=== PATIENT | male | born 1960 | race African-American/Black ===

== ENCOUNTER 2016-05-23 12:13 | Observation (INO) | payer MEDICARE ==
--- NOTE | ~2016-05-23 | HP ---
History And Physical [id number] [place]. [address] NAME: MAKSIM LOZANO : 60 STATUS : ADM Vinicio PAT#: [id number] AGE: 55 ADM/REG DATE : 05/23/16 MR#: [id number] REPORT SERV DATE: 05/23/16 DICTATED BY: ATSHI TILLEY DATE: 05/23/16 REPORT STATUS : Draft TRANSCRIBED BY: MODL DATE: 05/23/16 DATE OF ADMISSION: 05/23/2016 CHIEF COMPLAINT: Left upper extremity numbness. HISTORY OF PRESENT ILLNESS: The patient is a 55-year-old male with multiple comorbidities, presented with complaints that last night, he felt like that his left arm was numb, he felt like that there was a twitching in it and his arm kept twitching, but he fell asleep. His numbness lasted about 30 minutes. He denied any slurred speech, double vision, or blurred vision. He denied any numbness or tingling in the left lower extremity. He had not had any palpitations, chest pain, shortness of breath, or other constitutional symptoms. This morning he still had twitching in his arm, so he decided to come to the hospital. In the emergency room, evaluation was negative, but he was thought that maybe he was having TIA, given his history of atrial fibrillation and cardiomyopathy with prior CVA. So, he has been referred to the Hospitalist Service for further treatment and evaluation. REVIEW OF SYSTEMS: Otherwise, negative. PAST MEDICAL HISTORY: As obtained from past records. This patient had nonischemic dilated cardiomyopathy with a history of coronary artery disease, ejection fraction is 35% with pulmonary hypertension. He had stroke in 2013 with right parietotemporal encephalomalacia. He has chronic kidney disease stage 3 with a baseline creatinine of 1.3 to 1.4, atrial fibrillation followed by Dr. Sams. Taken off anticoagulation because of bleeding. He has hypertension. He had peptic ulcer disease, seen by Dr. Perrin. GI bleed, off anticoagulation. He had hypothyroidism. He has anemia with iron deficiency, seen by Dr. Ledesma. Gastric outlet obstruction with gastroparesis. He has chronic venous stasis and lymphedema with left orbital fracture. Genital herpes. He had nonsustained ventricular tachycardia and supraventricular tachycardia, pancreatitis, and pancytopenia. PAST SURGICAL HISTORY: Significant for major bowel surgery, possibly a Billroth II with a vagotomy, but there is also a concern whether he had a Yony-en-Y and a jejunostomy. He also had a partial small-bowel resection because of gangrenous bowel in 2003. He had an extensive adhesiolysis and then had a ventral hernia, abdominal wall dehiscence with extended wound care. Varicose vein stripping by Dr. Ferrara. ALLERGIES: TO SHAUNA INHIBITORS. HOME MEDICATIONS: Allopurinol 100 mg twice daily, aspirin 81 mg once daily, Bumex 2 mg twice daily, Coreg 6.25 mg twice daily, digoxin 0.25 mg once daily, isosorbide 10 mg p.o. twice daily, levothyroxine 25 mcg once daily, Aldactone 25 mg once daily. SOCIAL HISTORY: He denies smoking. Drinks a beer on a daily basis, often 24 ounces every several days. He does not drink vodka anymore. He previously used cocaine, but has been absent for years. He is on disability. He is . 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 He has no children. He lives with brother. History And Physical [address] [address] NAME: MAKSIM LOZANO : 60 STATUS : ADM Vinicio PAT#: [id number] AGE: 55 ADM/REG DATE : 05/23/16 MR#: [id number] REPORT SERV DATE: 05/23/16 DICTATED BY: TASHI TILLEY DATE: 05/23/16 REPORT STATUS : Draft TRANSCRIBED BY: ATA DATE: 05/23/16 FAMILY HISTORY: Significant for diabetes, heart disease, and mother with lymphedema. PHYSICAL EXAMINATION: GENERAL: male, lying in bed, appears to be in no obvious respiratory distress. He is awake and alert, he is oriented. VITAL SIGNS: Blood pressure is 130/51, saturation of 98% on room air. Temp is 98.4. Pulse is 51. HEENT: Head is normocephalic, atraumatic. Pupils are equal, round, and reactive to light. Extraocular muscles are intact. Sclerae are anicteric. Conjunctivae normal. Oropharynx without lesion. Tongue protrusion midline. Uvula midline. NECK: Supple. No jugular venous distention. No carotid bruits or thyromegaly is appreciated. No lymphadenopathy in the neck is palpable. HEART: Regular rate rhythm. No murmurs, rubs, or gallops are heard. PMI displaced just outside the anterior axillary line. LUNGS: Clear to auscultation both anteriorly and posteriorly without rales, rhonchi, wheezing, or consolidation. ABDOMEN: Scaphoid soft, nontender. Good bowel sounds. Multiple surgical scars are noted. EXTREMITIES: Without cyanosis or clubbing. There is a difficult thickness of the skin and chronic venous stasis with some blistering of the lower extremities skin. 1+ pitting edema is noted. NEUROLOGIC: Cranial nerves number II through XII grossly intact. Motor development functioning appears to be normal. Strength is equal and symmetrical in both upper and lower extremities. There is some contracture or spasm of the room left upper extremity hand. There is no pronator drift of both upper extremities. The patient is somewhat difficult to follow commands and unable to provide any insight into proprioception during this exam. He is able to move both lower extremities. Sensory exam seems to be grossly intact as well. LABORATORY DATA: CT of the brain in the emergency room was negative for any acute event. Encephalomalacia from previous stroke noted. CMP, sodium of 138, potassium 3.0, chloride 98, bicarb 30, BUN 8, creatinine 1.05, glucose of 95. Liver function studies, alkaline phosphatase is elevated at 196, ALT is 38, AST is 61. Troponin is 0.07 which have been somewhat elevated in the past as well. Total bilirubin is 2.8. Albumin is 3.0. White count is 3.9, hemoglobin of 11.5, a hematocrit of 33, platelet count is 117,000. No bandemia. PT, INR, and PTT were normal. IMPRESSION: 1. Left upper extremity esthesia. Most likely due to fluctuation of positively charged ions including ionized calcium and potassium. Must rule out transient ischemic attack or structural brain disease. 2. Nonischemic cardiomyopathy. 3. Alcoholism. 4. Hypertension. 5. Hyperbilirubinemia. 6. Pancytopenia. Most likely due to alcoholic liver disease. PLAN: The patient will be admitted. MRI and MRA of the brain will be obtained. Two- History And Physical [address] [place] [facility]. [address] NAME: MAKSIM LOZANO : 60 STATUS : ADM Vinicio PAT#: [id number] AGE: 55 ADM/REG DATE : 05/23/16 MR#: [id number] REPORT SERV DATE: 05/23/16 DICTATED BY: TASHI TILLEY DATE: 05/23/16 REPORT STATUS : Draft TRANSCRIBED BY: ATA DATE: 05/23/16 dimensional echocardiogram will be done. MRA of the neck will be done. We will add aspirin 325 mg once daily. We will add high-dose statin. Continue home medications. Check digoxin level. IV fluids will be administered. Check ionized calcium level. The patient remains a full code. KARINA/ATA Tashi Tilley M.D. / [id number] CC: Tashi Tilley M.D.
--- NOTE | ~2016-05-23 | DS ---
Discharge Summary [facility] [address] [facility] [place]. [address] NAME: MAKSIM LOZANO : 60 STATUS : DIS Vinicio PAT#: [id number] AGE: 55 ADM/REG DATE : 05/23/16 MR#: [id number] REPORT SERV DATE: 05/25/16 DICTATED BY: TASHI TILLEY DATE: 05/24/16 REPORT STATUS : Draft TRANSCRIBED BY: MODL DATE: 05/24/16 ADMISSION DATE: 05/23/2016 DISCHARGE DATE: 05/24/2016 DISCHARGE DIAGNOSES: 1. Left upper extremity anesthesia, currently resolved. 2. Nonischemic cardiomyopathy. 3. Hypothyroidism. 4. Alcoholism. 5. Late effect of cerebrovascular accident. CONSULTANTS DURING THIS HOSPITALIZATION: None. INVASIVE PROCEDURES DONE DURING THIS HOSPITALIZATION: None. IMAGING DONE THIS HOSPITALIZATION: MRI and MRA of the brain showing encephalomalacia of the temporoparietal lobe and two old CVAs of the cerebellum. But no evidence of any acute CVA. Normal MRA of the brain. Fairly normal MRA of the neck. Two-dimensional echocardiogram not done because the patient had one just recently done in April with an ejection fraction of about 30%. BRIEF HISTORY OF PRESENT ILLNESS: The patient is a 55-year-old male with past medical history of old CVA, presented with left upper extremity numbness, so he was admitted. For detailed history and physical exam, please see my note dictated on 05/23/2016. HOSPITAL COURSE: After being admitted to the hospital, this patient was observed. He underwent serial neuro checks. Physical Therapy saw the patient in consultation and it seemed like that he was at baseline. MRI and MRA of the brain were done which were noted as above. This patient otherwise remained stable. He did have some looseness in his stool and C. diff was checked that was negative. He, otherwise remained stable and is being discharged in stable condition. DISCHARGE DISPOSITION: Home. DISCHARGE ACTIVITY: As tolerated, but he will need physical therapy and occupational therapy in the home setting because of his late effect of CVA. This will be arranged through Case Management. DISCHARGE DIET: Low sodium diet. DISCHARGE MEDICATIONS: Allopurinol 100 mg twice daily, aspirin 81 mg once daily, Bumex 2 mg twice daily, Coreg 6.25 mg twice daily, digoxin 0.25 mg once daily, Isordil 10 mg p.o. twice daily, levothyroxine 25 mcg once daily, Aldactone 25 mg once daily. DISCHARGE FOLLOWUP: With [facility] in one week. Discharge Summary [place] [address] [facility] [place] [facility] [address] NAME: MAKSIM LOZANO : 60 STATUS : DIS Vinicio PAT#: [id number] AGE: 55 ADM/REG DATE : 05/23/16 MR#: [id number] REPORT SERV DATE: 05/25/16 DICTATED BY: TASHI TILLEY DATE: 05/24/16 REPORT STATUS : Draft TRANSCRIBED BY: ATA DATE: 05/24/16 About 30 minutes spent planning this patient's discharge, reconciling medications, and discussing hospital care and findings with the patient. KARINA/ATA Tashi Tilley M.D. / [id number] CC: Tashi Tilley M.D. [facility]
[2016-05-23 10:24] LABS: BASOPHILS 0 %; EOSINOPHILS 0 %; HEMOGLOBIN 11.5 g/dL (13.6-17.8); IMMATURE GRANULOCYTES 0.3 %; IMMATURE GRANULOCYTES ABSOLUTE 0.01 10/3/uL (0.0-0.11); LYMPHOCYTES 13.2 %; LYMPHOCYTES ABSOLUTE 0.51 10/3/uL (0.67-4.30); MEAN CORPUS HGB CONC 34.8 g/dL (32.0-36.0); MEAN CORPUSCULAR HEMOGLOB 32.6 pg (26.0-34.0); MEAN CORPUSCULAR VOLUME 93.5 fL (80-100); MONOCYTES 10.9 %; MONOCYTES ABSOLUTE 0.42 10/3/uL (0.21-1.20); NEUTROPHILS 75.6 %; NEUTROPHILS ABSOLUTE 2.91 10/3/uL (2.02-8.40); PLATELET COUNT 117 10/3/uL (150-400); RBC DISTRIBUTION WIDTH 15.8 % (12.0-16.0); RED CELL COUNT 3.53 10/6/uL (4.7-6.1)
[2016-05-23 10:25] LABS: ER CBC TAT 0 Hrs 08 Mins; MANUAL DIFF NO %; WHITE BLOOD CELLS 3.9 10/3/uL (4.5-10.5)
[2016-05-23 10:32] LABS: INTERNATIONAL NORMAL RATI 1.1 UNITS (-); PARTIAL THROMBO TIME 27.7 SEC (22.5-37.2); PROTIME (NOT ORD) 13.7 SEC (12.0-14.5)
[2016-05-23 10:39] LABS: A/G RATIO 0.7 (0.7-1.9); ALKALINE PHOSPHATASE 196 U/L (45-117); CALCIUM, SERUM 8.3 MG/DL (8.5-10.4); CHLORIDE, SERUM 98 MMOL/L (96-112); CO2 (CARBON DIOXIDE) 30 MMOL/L (24-34); CREATININE 1.05 MG/DL (0.70-1.30); GFR AFRICAN AMERICAN 92 ML/MIN (>=60); GFR NON AFRICAN AMERICAN 80 ML/MIN (>=60); GLOBULIN 4.3 G/DL (2.5-4.1); GLUCOSE, SERUM 95 MG/DL (60-99); SGOT(AST) 61 U/L (5-40); SGPT(ALT) 38 U/L (5-65); SODIUM, SERUM 138 MMOL/L (135-148); TOTAL PROTEIN 7.3 G/DL (6.0-8.5)
[2016-05-23 10:41] LABS: BUN (BLOOD UREA NITROGEN) 8 MG/DL (6-23); TOTAL BILIRUBIN 2.8 MG/DL (0-1.2)
[2016-05-23 10:43] LABS: TROPONIN I 0.07 NG/ML (<0.05)
[~2016-05-23 12:13] MED LIST: AFRIN15 NAS; AMIT50 PO; AMOXIL500 MG PO; APRES25 PO; ASAB PO; ATV1 IV; AUG875 PO; BUM1; BUM1 PO; BUM2 PO; Bumex; CARD120 IV; CARDCD180 PO; CARDCD240 PO; CARVEDILOL PO; COREG12 PO; COREG25 PO; COREG6 PO; COZ25 PO; DIGITEK0.25 MG PO; DIL2AMP IV; DIOVAN40 MG PO; DSS PO; DURA75 TOP; FLONASE NAS; H5P IM; HALF81 PO; HYDROCHLOROT12.5 MG PO; HYDROCHLOROT25 MG PO; IBU800 PO; IMOD PO; ISORDIL10 PO; K-TABS10 MEQ PO; KAOPECTATE262 MG/15 PO; KDUR20 PO; KLOR-CON 1010 MEQ PO; KLOR-CON M2020 MEQ PO; KLOR-CON20 MEQ PO; L10 PO; L20 PO; L40 PO; LASIX PO; LEVAQUIN750 MG PO; LEVOTHYROXIN25 MCG PO; LIPITOR40 PO; LIPITOR80 MG PO; LOP50 PO; LOPRESS HC100 MG/25 IV; LOPRESS HC100 MG/25 PO; MAGOX4 PO; MIRALAXPKT PO; MONODOX100 MG PO; MULTIPLE VIT PO; NORCO1 TA2 PO; NORCO1 TAB PO; PACERONE200 MG IV; PCET PO; PEP20 IV; PHENERGAN (G25 MG/ML IM; POTASSIUM PO; PRILO PO; PRILOSEC OTC20 MG PO; REG10MGP IV; SPIRO25 PO; SYN.025B PO; THERAPEUTIC PO; TRAMADOL PO; ULTRAM50 PO; VICODINTAB PO; XARELTO20 MG PO; Z100 PO; ZESTORETIC1 TAB PO
[2016-05-23] MEDS ORDERED: COREG6 PO (14:04)
[2016-05-23 17:04] LABS: FREE T4 1.23 NG/DL (0.76-1.46); TROPONIN I 0.05 NG/ML (<0.05)
[2016-05-23 17:05] LABS: ULTRASENSITIVE TSH 1.94 MCIU/ML (0.358-3.740)
[2016-05-23 17:49] LABS: DIGOXIN 0.4 NG/ML (0.8-2.0)
[2016-05-24 01:12] LABS: BASOPHILS 0.7 %; BASOPHILS ABSOLUTE 0.02 10/3/uL (0.0-0.16); EOSINOPHILS ABSOLUTE 0.03 10/3/uL (0.0-0.53); HEMOGLOBIN 10.3 g/dL (13.6-17.8); IMMATURE GRANULOCYTES 0.3 %; IMMATURE GRANULOCYTES ABSOLUTE 0.01 10/3/uL (0.0-0.11); LYMPHOCYTES 23.3 %; LYMPHOCYTES ABSOLUTE 0.67 10/3/uL (0.67-4.30); MEAN CORPUS HGB CONC 34.9 g/dL (32.0-36.0); MEAN CORPUSCULAR HEMOGLOB 32.5 pg (26.0-34.0); MEAN CORPUSCULAR VOLUME 93.1 fL (80-100); MEAN PLATELET VOLUME 9.7 fL (9.2-13.0); MONOCYTES 13.2 %; MONOCYTES ABSOLUTE 0.38 10/3/uL (0.21-1.20); NEUTROPHILS 61.5 %; NEUTROPHILS ABSOLUTE 1.76 10/3/uL (2.02-8.40); PLATELET COUNT 108 10/3/uL (150-400); RBC DISTRIBUTION WIDTH 15.6 % (12.0-16.0); RED CELL COUNT 3.17 10/6/uL (4.7-6.1); WHITE BLOOD CELLS 2.9 10/3/uL (4.5-10.5)
[2016-05-24 01:13] LABS: HEMATOCRIT 29.5 % (40.0-51.0); MANUAL DIFF NO %
[2016-05-24 01:25] LABS: ALBUMIN 2.5 G/DL (3.5-5.0); BUN (BLOOD UREA NITROGEN) 8 MG/DL (6-23); CALCIUM, SERUM 7.9 MG/DL (8.5-10.4); CHLORIDE, SERUM 103 MMOL/L (96-112); CREATININE 0.96 MG/DL (0.70-1.30); GFR AFRICAN AMERICAN 103 ML/MIN (>=60); GFR NON AFRICAN AMERICAN 89 ML/MIN (>=60); GLUCOSE, SERUM 85 MG/DL (60-99); PHOSPHORUS, SERUM 2.5 MG/DL (2.5-4.5); SODIUM, SERUM 140 MMOL/L (135-148)
[2016-05-24 01:31] LABS: CO2 (CARBON DIOXIDE) 25 MMOL/L (24-34)
[2016-05-24 01:32] LABS: TROPONIN I 0.06 NG/ML (<0.05)
[2016-05-24 09:37] LABS: BUN (BLOOD UREA NITROGEN) 7 MG/DL (6-23); CALCIUM, SERUM 8.3 MG/DL (8.5-10.4); CHLORIDE, SERUM 102 MMOL/L (96-112); CO2 (CARBON DIOXIDE) 26 MMOL/L (24-34); CREATININE 1.02 MG/DL (0.70-1.30); GFR AFRICAN AMERICAN 95 ML/MIN (>=60); GFR NON AFRICAN AMERICAN 82 ML/MIN (>=60); GLUCOSE, SERUM 89 MG/DL (60-99); POTASSIUM, SERUM 3.4 MMOL/L (3.5-5.3); SODIUM, SERUM 141 MMOL/L (135-148); TROPONIN I 0.04 NG/ML (<0.05)
[2016-05-24 13:00] LABS: ALBUMIN 2.7 G/DL (3.5-5.0); SGOT(AST) 43 U/L (5-40); SGPT(ALT) 32 U/L (5-65); TOTAL BILIRUBIN 2.7 MG/DL (0-1.2)
[2016-05-24 13:03] LABS: ALKALINE PHOSPHATASE 158 U/L (45-117); DIRECT BILIRUBIN 1.6 MG/DL (0.0-0.4); INDIRECT BILIRUBIN(NOT ORDER) 1.1 MG/DL (0.1-0.9)
[2016-05-24 13:16] LABS: TOTAL PROTEIN 6.7 G/DL (6.0-8.5)
[2016-07-21] MEDS ORDERED: COREG6 PO (22:21)
[2016-07-21] MEDS ORDERED: SYN.025B PO (22:21)
[2016-07-21] MEDS ORDERED: BUM2 PO (22:21)
[2016-07-21] MEDS ORDERED: Z100 PO (22:21)
[2016-07-21] MEDS ORDERED: ASAB PO (22:22)
[2016-07-21] MEDS ORDERED: SPIRO25 PO (22:22)
[2016-10-27] MEDS ORDERED: HALF81 PO (15:44)
[2016-10-27] MEDS ORDERED: Z100 PO (15:45)
[2016-10-27] MEDS ORDERED: BUM1 PO (15:45)
[2016-10-27] MEDS ORDERED: SYN.025B PO (15:45)
[2016-10-27] MEDS ORDERED: NORCO1 TAB PO (15:46)
[2016-11-04] MEDS ORDERED: CORDARONE PO (13:09)
[2016-11-04] MEDS ORDERED: COREG3 PO (13:10)
[2016-11-04] MEDS ORDERED: IMDUR30 PO (13:11)
[2016-11-04] MEDS ORDERED: ENULOSE PO (13:13)
[2016-11-04] MEDS ORDERED: KLOR-CON20 MEQ PO (13:14)
[2016-11-04] MEDS ORDERED: SPIRO25 PO (13:15)
[2016-11-04] MEDS ORDERED: APRES10B PO (13:15)
[2016-11-18] MEDS ORDERED: BUM1 PO (13:14)
[2016-11-18] MEDS ORDERED: Z100 PO (13:14)
[2016-11-18] MEDS ORDERED: COREG3 PO (13:15)
[2016-11-18] MEDS ORDERED: LEVOTHYROXIN25 MCG PO (13:15)
[2016-11-18] MEDS ORDERED: CORDARONE PO (13:15)
[2016-11-18] MEDS ORDERED: KLOR-CON M2020 MEQ PO (13:16)
[2016-11-18] MEDS ORDERED: SPIRO25 PO (13:16)
[2016-11-18] MEDS ORDERED: IMDUR30 PO (13:16)
[2016-11-18] MEDS ORDERED: APRES10B PO (13:16)
[2016-11-18] MEDS ORDERED: HALF81 PO (13:17)
[2016-11-18] MEDS ORDERED: LIPITOR10 PO (13:18)
[2016-11-22] MEDS ORDERED: LEVOTHYROXIN50 MCG PO (13:16)
[2016-11-22] MEDS ORDERED: VIBRATAB100 MG PO (13:20)
[2016-12-29] MEDS ORDERED: IMDUR30 PO (10:59)
[2017-01-02] MEDS ORDERED: BUM2 PO (10:21)
[2017-01-02] MEDS ORDERED: COREG6 PO (10:22)
[2017-01-02] MEDS ORDERED: FOLIC PO (10:24)
[2017-01-02] MEDS ORDERED: B1100 PO (10:25)
== END 2016-05-24 15:59 | disposition home or self-care (01) ==
LOC: ER 12:13 → 1SO 13:55
PROVIDERS: Internal Medicine; Nurse Practitioner
DX: R20.0 Anesthesia of skin (principal); E80.6 Other disorders of bilirubin metabolism; D61.818 Other pancytopenia; I42.9 Cardiomyopathy, unspecified; E03.9 Hypothyroidism, unspecified; N18.3 Chronic kidney disease, stage 3 (moderate); I27.2 Other secondary pulmonary hypertension; I25.10 Atherosclerotic heart disease of native coronary artery without angina pectoris; I11.0 Hypertensive heart disease with heart failure; F10.20 Alcohol dependence, uncomplicated; Z79.82 Long term (current) use of aspirin; Z79.01 Long term (current) use of anticoagulants; Z79.899 Other long term (current) drug therapy; Z86.73 Personal history of transient ischemic attack (TIA), and cerebral infarction without residual deficits; D50.9 Iron deficiency anemia, unspecified
CPT/HCPCS: 70450; 70544; 70547; 70551-52; 71010; 80048; 80053; 80069; 80076; 80162; 82330; 82607; 82746; 84439; 84443; 84484; 85025; 85610; 85730; 87493; 87493-59; 93005; 96372; 97161-GP; 99291; A9270-GY; G0378; G8978-CK-GP; G8979-CJ-GP

== ENCOUNTER 2016-06-23 13:29 | Observation (INO) | payer MEDICARE ==
--- NOTE | ~2016-06-23 | DS ---
Discharge Summary [address] [place]. [address] NAME: MAKSIM LOZANO : 60 STATUS : DIS Vinicio PAT#: [id number] AGE: 55 ADM/REG DATE : 06/23/16 MR#: [id number] REPORT SERV DATE: 06/25/16 DICTATED BY: RADHA BENJAMIN DATE: 06/24/16 REPORT STATUS : Draft TRANSCRIBED BY: MODL DATE: 06/24/16 ADMISSION DATE: 06/23/2016 DISCHARGE DATE: 06/24/2016 DISCHARGE DIAGNOSES: 1. Bleeding varicose vein. It was stopped. The sutures done in emergency room, seen by Dr. Bustamante. There was no other treatment can be given. 2. Pancytopenia, stable. 3. Chronic systolic heart failure. 4. Chronic atrial fibrillation. HISTORY OF PRESENT ILLNESS: This is a 55-year-old -[place] male patient, who does have recurrent varicocele vein bleeding problems, came to the hospital with bleeding after he hit with a little minor trauma to his vein. Please see dictated H and P. HOSPITAL COURSE: He was admitted to the hospital with bleeding varicose vein. Seen by Dr. Lord. He was already treated with a little suture from the emergency room and his bleeding stopped. Dr. Bustamante does not think there is nothing to add on this case. His H and H have been slightly lower than before, but it is remaining 7.8 and 23, and he is not symptomatic from this anemia. So, the patient was not transfused. Overall, other medical conditions have been stable. So, the patient will be discharged to home. DISCHARGE MEDICATION: Same as home medication. EKL/MODL Radha Benjamin M.D. / [id number] CC: Daja Mendosa NWolfPWolf
--- NOTE | ~2016-06-23 | HP ---
History And Physical [address] [place]. [address] NAME: MAKSIM LOZANO : 60 STATUS : ADM Vinicio PAT#: [id number] AGE: 55 ADM/REG DATE : 06/23/16 MR#: [id number] REPORT SERV DATE: 06/23/16 DICTATED BY: AYLEEN HINSON DATE: 06/23/16 REPORT STATUS : Draft TRANSCRIBED BY: MODL DATE: 06/23/16 DATE OF ADMISSION: 06/23/2016 CHIEF COMPLAINT: Bleeding varicose veins. HISTORY OF PRESENT ILLNESS: The patient is a 55-year-old male with complex past medical history including pancytopenia, recurrent bleeding varicose veins, lymphedema, peptic ulcer disease, CKD, CHF with EF of 35%, pulmonary hypertension, nonischemic dilated cardiomyopathy, AFib , off anticoagulation secondary to bleeding history, who presents with episode of feeling as high as his varicose vein had bled. On arrival to emergency room, the patient was noted to have significantly bleeding varicose veins, was notably anemic and had difficulty stopping this bleeding. Had noticed some bleeding happening suddenly over the last few hours, been constant, moderate to severe in severity. No pain or radiating symptoms. No headache, nausea, vomiting. No fever or chills were noted. The patient said there was no trauma involved to leg, symptoms happened spontaneously. The patient was stitched in emergency room and finally had mild stopping of bleeding. There are no worsening or relieving symptoms. The patient does follow Dr. Ferrara as he has had multiple episodes of this. REVIEW OF SYSTEMS: A 10-point review of systems is negative except for that noted in the HPI. PAST MEDICAL HISTORY: Noted for nonischemic cardiomyopathy, EF of 35% with pulmonary hypertension, stroke 2013 with parietotemporal encephalomalacia, CKD stage 3, AFib, off anticoagulation, bleeding history, peptic ulcer disease followed by Dr. Perrin, GI bleed, hypothyroidism, anemia with iron deficiency follow up with Dr. Ledesma with pancytopenia, gastric outlet obstruction, may be gastroparesis, chronic venous stasis, lymphedema, genital herpes, nonsustained V-tach and supraventricular tachycardia, pancreatitis. SURGICAL HISTORY: Significant for major bowel surgery, possibly Billroth II with vagotomy, unclear if he has had Yony-en-Y and jejunostomy, partial small-bowel resection secondary to gangrenous bowel in 2003, extensive adhesiolysis, ventral hernia, abdominal wall dehiscence with extended wound care. Varicose vein stripping with Dr. Ferrara. ALLERGIES: SHAUNA INHIBITORS. SOCIAL HISTORY: No smoking. Daily beer intake, but stop vodka and illicits including was previously using cocaine. Disabled. . Reports that he typically sits at home watching TV now. FAMILY HISTORY: Diabetes, heart disease, lymphedema. HOME MEDICATIONS: Allopurinol, aspirin, Bumex, Coreg, digoxin, Isordil, Synthroid, and spironolactone. PHYSICAL EXAMINATION: History And Physical [address] [address] NAME: MAKSIM LOZANO : 60 STATUS : ADM Vinicio PAT#: [id number] AGE: 55 ADM/REG DATE : 06/23/16 MR#: [id number] REPORT SERV DATE: 06/23/16 DICTATED BY: AYLEEN HINSON DATE: 06/23/16 REPORT STATUS : Draft TRANSCRIBED BY: ATA DATE: 06/23/16 VITAL SIGNS: The patient's blood pressure 112/80, temperature 97.5, pulse 72, respirations 20. GENERAL: Elderly frail. HEENT: Eyes with scleral icterus. EOMI. Mouth poor dentition. Nares patent. RESPIRATORY: Clear to auscultation. No wheezes, rales. CV: Regular rate. Bilateral edema. GI: Soft, nontender, nondistended. Multiple surgical sites. : Deferred. MUSCULOSKELETAL: Moves extremities. Right leg bandaged secondary to recent stitch from bleeding varicosity. SKIN: Warm, dry with lymphedema changes on lower extremities. HEME: Bleeding was noted previously on varicosity site. NEURO: Alert and oriented. No asterixis. PSYCH: Pleasant, resting. LABORATORY DATA: Sodium 142, potassium 3.4, chloride 107, bicarb 24 and 18, creatinine 1.2, glucose 92, calcium 1.1. CBC: WBC 2.7 with H and H 8.1 and 23.2, platelets 113. INR 1.1. ASSESSMENT: 1. Acute blood loss anemia. 2. Hypokalemia. 3. Hypocalcemia. 4. Pancytopenia. 5. Hypothyroidism. 6. Bleeding varicose veins. 7. Congestive heart failure history. PLAN: 1. For acute blood loss anemia secondary to bleeding varicose veins, transfuse PRBCs as the patient did have quite a significant blood loss anemia at site in emergency room, which has been stopped with stitching. We will have Dr. Ferrara evaluate arterial ultrasound and every shift monitoring Dopplering pulses to monitor for no signs or symptoms of compartment syndrome at this time. 2. Hypokalemia, replace. 3. Hypocalcemia, check ionized calcium. 4. Pancytopenia, monitor. The patient was seen by Dr. Ledesma likely secondary to chronic illnesses multitude. 5. Hypothyroidism, on replacement. 6. CHF history, monitor I's and O's. Gentle IV fluids currently in acute setting of blood loss anemia. 7. Varicose veins, eval per Vascular Surgery. All questions answered with the patient. Disposition possibly within 24 to 48 hours. Pending surgical evaluation and stabilization of H and H. History And Physical [address] [address] NAME: MAKSIM LOZANO : 60 STATUS : ADM Vinicio PAT#: [id number] AGE: 55 ADM/REG DATE : 06/23/16 MR#: [id number] REPORT SERV DATE: 06/23/16 DICTATED BY: AYLEEN HINSON DATE: 06/23/16 REPORT STATUS : Draft TRANSCRIBED BY: ATA DATE: 06/23/16 DDN/ATA Ayleen Hinson MD / [id number] CC: Ayleen Hinson MD
[2016-06-23 12:31] LABS: BASOPHILS 0.4 %; BASOPHILS ABSOLUTE 0.01 10/3/uL (0.0-0.16); EOSINOPHILS ABSOLUTE 0.08 10/3/uL (0.0-0.53); ER CBC TAT 0 Hrs 07 Mins; LYMPHOCYTES 28.4 %; LYMPHOCYTES ABSOLUTE 0.76 10/3/uL (0.67-4.30); MEAN CORPUS HGB CONC 34.9 g/dL (32.0-36.0); MEAN CORPUSCULAR VOLUME 91.7 fL (80-100); MEAN PLATELET VOLUME 8.8 fL (9.2-13.0); MONOCYTES 16.4 %; MONOCYTES ABSOLUTE 0.44 10/3/uL (0.21-1.20); NEUTROPHILS 51.8 %; NEUTROPHILS ABSOLUTE 1.39 10/3/uL (2.02-8.40); PLATELET COUNT 113 10/3/uL (150-400); RBC DISTRIBUTION WIDTH 16.5 % (12.0-16.0); WHITE BLOOD CELLS 2.7 10/3/uL (4.5-10.5)
[2016-06-23 12:32] LABS: HEMATOCRIT 23.2 % (40.0-51.0); HEMOGLOBIN 8.1 g/dL (13.6-17.8); MANUAL DIFF NO %; RED CELL COUNT 2.53 10/6/uL (4.7-6.1)
[2016-06-23 12:42] LABS: BUN (BLOOD UREA NITROGEN) 18 MG/DL (6-23); CALCIUM, SERUM 7.7 MG/DL (8.5-10.4); CHLORIDE, SERUM 107 MMOL/L (96-112); CO2 (CARBON DIOXIDE) 24 MMOL/L (24-34); GFR AFRICAN AMERICAN 78 ML/MIN (>=60); GFR NON AFRICAN AMERICAN 68 ML/MIN (>=60); GLUCOSE, SERUM 92 MG/DL (60-99); POTASSIUM, SERUM 3.4 MMOL/L (3.5-5.3); SODIUM, SERUM 142 MMOL/L (135-148)
[2016-06-23 12:45] LABS: INTERNATIONAL NORMAL RATI 1.1 UNITS (-); PARTIAL THROMBO TIME 30.8 SEC (22.5-37.2); PROTIME (NOT ORD) 14.1 SEC (12.0-14.5)
[2016-06-23 22:57] LABS: HEMOGLOBIN 7.8 g/dL (13.6-17.8)
[2016-06-24 10:22] LABS: BASOPHILS 0.3 %; BASOPHILS ABSOLUTE 0.01 10/3/uL (0.0-0.16); EOSINOPHILS ABSOLUTE 0.04 10/3/uL (0.0-0.53); HEMATOCRIT 22.3 % (40.0-51.0); HEMOGLOBIN 7.7 g/dL (13.6-17.8); IMMATURE GRANULOCYTES 0.5 %; IMMATURE GRANULOCYTES ABSOLUTE 0.02 10/3/uL (0.0-0.11); LYMPHOCYTES 13.8 %; LYMPHOCYTES ABSOLUTE 0.55 10/3/uL (0.67-4.30); MEAN CORPUS HGB CONC 34.5 g/dL (32.0-36.0); MEAN CORPUSCULAR HEMOGLOB 32.1 pg (26.0-34.0); MEAN CORPUSCULAR VOLUME 92.9 fL (80-100); MEAN PLATELET VOLUME 10.1 fL (9.2-13.0); MONOCYTES 11.8 %; MONOCYTES ABSOLUTE 0.47 10/3/uL (0.21-1.20); NEUTROPHILS 72.6 %; NEUTROPHILS ABSOLUTE 2.91 10/3/uL (2.02-8.40); PLATELET COUNT 114 10/3/uL (150-400); RBC DISTRIBUTION WIDTH 16.6 % (12.0-16.0)
[2016-06-24 10:23] LABS: MANUAL DIFF NO %
[2016-06-24 10:43] LABS: ALBUMIN 2.4 G/DL (3.5-5.0); ALKALINE PHOSPHATASE 164 U/L (45-117); BUN (BLOOD UREA NITROGEN) 18 MG/DL (6-23); CHLORIDE, SERUM 110 MMOL/L (96-112); CO2 (CARBON DIOXIDE) 23 MMOL/L (24-34); CREATININE 0.86 MG/DL (0.70-1.30); GFR AFRICAN AMERICAN 113 ML/MIN (>=60); GFR NON AFRICAN AMERICAN 98 ML/MIN (>=60); GLUCOSE, SERUM 100 MG/DL (60-99); SGOT(AST) 52 U/L (5-40); SGPT(ALT) 44 U/L (5-65); SODIUM, SERUM 142 MMOL/L (135-148); TOTAL PROTEIN 5.8 G/DL (6.0-8.5)
[2016-06-24 10:44] LABS: A/G RATIO 0.7 (0.7-1.9); GLOBULIN 3.4 G/DL (2.5-4.1); POTASSIUM, SERUM 4.5 MMOL/L (3.5-5.3); TOTAL BILIRUBIN 1.7 MG/DL (0-1.2)
[2016-07-21] MEDS ORDERED: Z100 PO (22:21)
[2016-07-21] MEDS ORDERED: SYN.025B PO (22:21)
[2016-07-21] MEDS ORDERED: COREG6 PO (22:21)
[2016-07-21] MEDS ORDERED: BUM2 PO (22:21)
[2016-07-21] MEDS ORDERED: ASAB PO (22:22)
[2016-07-21] MEDS ORDERED: SPIRO25 PO (22:22)
[2016-10-27] MEDS ORDERED: HALF81 PO (15:44)
[2016-10-27] MEDS ORDERED: SYN.025B PO (15:45)
[2016-10-27] MEDS ORDERED: BUM1 PO (15:45)
[2016-10-27] MEDS ORDERED: Z100 PO (15:45)
[2016-10-27] MEDS ORDERED: NORCO1 TAB PO (15:46)
[2016-11-04] MEDS ORDERED: CORDARONE PO (13:09)
[2016-11-04] MEDS ORDERED: COREG3 PO (13:10)
[2016-11-04] MEDS ORDERED: IMDUR30 PO (13:11)
[2016-11-04] MEDS ORDERED: ENULOSE PO (13:13)
[2016-11-04] MEDS ORDERED: KLOR-CON20 MEQ PO (13:14)
[2016-11-04] MEDS ORDERED: APRES10B PO (13:15)
[2016-11-04] MEDS ORDERED: SPIRO25 PO (13:15)
[2016-11-18] MEDS ORDERED: Z100 PO (13:14)
[2016-11-18] MEDS ORDERED: BUM1 PO (13:14)
[2016-11-18] MEDS ORDERED: CORDARONE PO (13:15)
[2016-11-18] MEDS ORDERED: COREG3 PO (13:15)
[2016-11-18] MEDS ORDERED: LEVOTHYROXIN25 MCG PO (13:15)
[2016-11-18] MEDS ORDERED: SPIRO25 PO (13:16)
[2016-11-18] MEDS ORDERED: APRES10B PO (13:16)
[2016-11-18] MEDS ORDERED: IMDUR30 PO (13:16)
[2016-11-18] MEDS ORDERED: KLOR-CON M2020 MEQ PO (13:16)
[2016-11-18] MEDS ORDERED: HALF81 PO (13:17)
[2016-11-18] MEDS ORDERED: LIPITOR10 PO (13:18)
[2016-11-22] MEDS ORDERED: LEVOTHYROXIN50 MCG PO (13:16)
[2016-11-22] MEDS ORDERED: VIBRATAB100 MG PO (13:20)
[2016-12-29] MEDS ORDERED: IMDUR30 PO (10:59)
[2017-01-02] MEDS ORDERED: BUM2 PO (10:21)
[2017-01-02] MEDS ORDERED: COREG6 PO (10:22)
[2017-01-02] MEDS ORDERED: FOLIC PO (10:24)
[2017-01-02] MEDS ORDERED: B1100 PO (10:25)
== END 2016-06-24 15:45 | disposition home or self-care (01) ==
LOC: ER 13:29 → ER/OF 18:39 → 7NO 19:01
PROVIDERS: Nurse Practitioner; Student in an Organized Health Care Education/Training Program
PROC: 0YQCXZZ Repair Right Upper Leg, External Approach (ICD-10-PCS; principal; 2016-06-23)
DX: I83.10 Varicose veins of unspecified lower extremity with inflammation (principal); D62 Acute posthemorrhagic anemia; E87.6 Hypokalemia; I13.0 Hypertensive heart and chronic kidney disease with heart failure and stage 1 through stage 4 chronic kidney disease, or unspecified chronic kidney disease; E83.51 Hypocalcemia; D61.818 Other pancytopenia; K27.9 Peptic ulcer, site unspecified, unspecified as acute or chronic, without hemorrhage or perforation; I27.2 Other secondary pulmonary hypertension; I50.22 Chronic systolic (congestive) heart failure; I42.0 Dilated cardiomyopathy; I48.2 Chronic atrial fibrillation; N18.3 Chronic kidney disease, stage 3 (moderate); E03.9 Hypothyroidism, unspecified; K21.9 Gastro-esophageal reflux disease without esophagitis; D50.9 Iron deficiency anemia, unspecified; Z98.890 Other specified postprocedural states; Z88.8 Allergy status to other drugs, medicaments and biological substances; Z79.82 Long term (current) use of aspirin; Z79.899 Other long term (current) drug therapy; Z79.01 Long term (current) use of anticoagulants
CPT/HCPCS: 36415; 80048; 80053; 82330; 83735; 85014; 85018; 85025; 85610; 85730; 86850; 86900; 86901; 99284; A9270-GY; G0378

== ENCOUNTER 2016-06-29 04:05 | Emergency (ER) | payer MEDICARE ==
[2016-06-29 04:04] LABS: BASOPHILS 0.4 %; BASOPHILS ABSOLUTE 0.01 10/3/uL (0.0-0.16); EOSINOPHILS 0.7 %; EOSINOPHILS ABSOLUTE 0.02 10/3/uL (0.0-0.53); HEMOGLOBIN 8.7 g/dL (13.6-17.8); IMMATURE GRANULOCYTES 0.4 %; IMMATURE GRANULOCYTES ABSOLUTE 0.01 10/3/uL (0.0-0.11); LYMPHOCYTES 15.2 %; LYMPHOCYTES ABSOLUTE 0.43 10/3/uL (0.67-4.30); MEAN CORPUS HGB CONC 34.3 g/dL (32.0-36.0); MEAN CORPUSCULAR HEMOGLOB 31.8 pg (26.0-34.0); MEAN CORPUSCULAR VOLUME 92.7 fL (80-100); MEAN PLATELET VOLUME 10.1 fL (9.2-13.0); MONOCYTES 12.4 %; MONOCYTES ABSOLUTE 0.35 10/3/uL (0.21-1.20); NEUTROPHILS 70.9 %; NEUTROPHILS ABSOLUTE 2.01 10/3/uL (2.02-8.40); PLATELET COUNT 123 10/3/uL (150-400); RBC DISTRIBUTION WIDTH 16.7 % (12.0-16.0); RED CELL COUNT 2.74 10/6/uL (4.7-6.1); WHITE BLOOD CELLS 2.8 10/3/uL (4.5-10.5)
[2016-06-29 04:06] LABS: HEMATOCRIT 25.4 % (40.0-51.0); MANUAL DIFF NO %
[2016-06-29 04:12] LABS: INTERNATIONAL NORMAL RATI 1.1 UNITS (-); PARTIAL THROMBO TIME 23.3 SEC (22.5-37.2); PROTIME (NOT ORD) 13.6 SEC (12.0-14.5)
[2016-06-29 04:22] LABS: CALCIUM, SERUM 8.8 MG/DL (8.5-10.4); CHLORIDE, SERUM 105 MMOL/L (96-112); CO2 (CARBON DIOXIDE) 20 MMOL/L (24-34); CREATININE 0.74 MG/DL (0.70-1.30); GFR AFRICAN AMERICAN 120 ML/MIN (>=60); GFR NON AFRICAN AMERICAN 104 ML/MIN (>=60); POTASSIUM, SERUM 4.6 MMOL/L (3.5-5.3); SODIUM, SERUM 137 MMOL/L (135-148)
[2016-06-29 04:26] LABS: BUN (BLOOD UREA NITROGEN) 10 MG/DL (6-23); GLUCOSE, SERUM 72 MG/DL (60-99)
[2016-06-29 05:00] LABS: DIGOXIN 0.3 NG/ML (0.8-2.0)
[2016-07-21] MEDS ORDERED: COREG6 PO (22:21)
[2016-07-21] MEDS ORDERED: Z100 PO (22:21)
[2016-07-21] MEDS ORDERED: SYN.025B PO (22:21)
[2016-07-21] MEDS ORDERED: BUM2 PO (22:21)
[2016-07-21] MEDS ORDERED: ASAB PO (22:22)
[2016-07-21] MEDS ORDERED: SPIRO25 PO (22:22)
[2016-10-27] MEDS ORDERED: HALF81 PO (15:44)
[2016-10-27] MEDS ORDERED: BUM1 PO (15:45)
[2016-10-27] MEDS ORDERED: Z100 PO (15:45)
[2016-10-27] MEDS ORDERED: SYN.025B PO (15:45)
[2016-10-27] MEDS ORDERED: NORCO1 TAB PO (15:46)
[2016-11-04] MEDS ORDERED: CORDARONE PO (13:09)
[2016-11-04] MEDS ORDERED: COREG3 PO (13:10)
[2016-11-04] MEDS ORDERED: IMDUR30 PO (13:11)
[2016-11-04] MEDS ORDERED: ENULOSE PO (13:13)
[2016-11-04] MEDS ORDERED: KLOR-CON20 MEQ PO (13:14)
[2016-11-04] MEDS ORDERED: SPIRO25 PO (13:15)
[2016-11-04] MEDS ORDERED: APRES10B PO (13:15)
[2016-11-18] MEDS ORDERED: Z100 PO (13:14)
[2016-11-18] MEDS ORDERED: BUM1 PO (13:14)
[2016-11-18] MEDS ORDERED: COREG3 PO (13:15)
[2016-11-18] MEDS ORDERED: LEVOTHYROXIN25 MCG PO (13:15)
[2016-11-18] MEDS ORDERED: CORDARONE PO (13:15)
[2016-11-18] MEDS ORDERED: SPIRO25 PO (13:16)
[2016-11-18] MEDS ORDERED: IMDUR30 PO (13:16)
[2016-11-18] MEDS ORDERED: KLOR-CON M2020 MEQ PO (13:16)
[2016-11-18] MEDS ORDERED: APRES10B PO (13:16)
[2016-11-18] MEDS ORDERED: HALF81 PO (13:17)
[2016-11-18] MEDS ORDERED: LIPITOR10 PO (13:18)
[2016-11-22] MEDS ORDERED: LEVOTHYROXIN50 MCG PO (13:16)
[2016-11-22] MEDS ORDERED: VIBRATAB100 MG PO (13:20)
[2016-12-29] MEDS ORDERED: IMDUR30 PO (10:59)
[2017-01-02] MEDS ORDERED: BUM2 PO (10:21)
[2017-01-02] MEDS ORDERED: COREG6 PO (10:22)
[2017-01-02] MEDS ORDERED: FOLIC PO (10:24)
[2017-01-02] MEDS ORDERED: B1100 PO (10:25)
== END 2016-06-29 06:49 | disposition home or self-care (01) ==
LOC: ER 04:05
PROVIDERS: Nurse Practitioner
PROC: 2Y41X5Z Packing of Nasal Region using Packing Material (ICD-10-PCS; principal; 2016-06-29)
DX: R04.0 Epistaxis (principal); I42.9 Cardiomyopathy, unspecified; I48.91 Unspecified atrial fibrillation; I50.9 Heart failure, unspecified; Z79.82 Long term (current) use of aspirin; Z79.899 Other long term (current) drug therapy
CPT/HCPCS: 71010; 80048; 80162; 85025; 85610; 85730; 99284

== ENCOUNTER 2016-07-14 19:46 | Inpatient (IN) | payer MEDICARE ==
--- NOTE | ~2016-07-14 | HP ---
History And Physical [address] [place]. [address] NAME: MAKSIM PRINGLE : 60 STATUS : ADM IN [facility]#: [id number] AGE: 55 ADM/REG DATE : 07/15/16 MR#: [id number] REPORT SERV DATE: 07/15/16 DICTATED BY: MAMADOU AUSTIN DATE: 07/15/16 REPORT STATUS : Draft TRANSCRIBED BY: MODL DATE: 07/15/16 DATE OF ADMISSION: 07/15/2016 CHIEF COMPLAINT: Congestive heart failure. HISTORY OF PRESENT ILLNESS: Mr. Pringle is a complicated 55-year-old man with a longstanding history of a nonischemic cardiomyopathy. His ejection fraction measured 30% to 35% by echo in 04/2016. He has chronic atrial fibrillation and chronic systolic congestive heart failure. He has a history of multiple severe GI bleeds and is not on anticoagulation for this reason. He is admitted with worsening volume overload. Bilateral lower extremity edema. Fluid up to his mid thighs. No chest pain. No syncope or presyncope. The patient was found also be in rapid atrial fibrillation in the emergency room started on IV Cardizem. PAST MEDICAL HISTORY: 1. Chronic atrial fibrillation. 2. Chronic systolic congestive heart failure, EF 30-35% in 04/2016. 3. History of severe GI bleed. 4. Status post Yony-en-Y partial gastrectomy for gastric ulcer. 5. History of peripheral vascular disease. 6. Severe bilateral venous insufficiency. 7. Chronic kidney disease. 8. Stroke. 9. Pancytopenia. 10.Recent hospitalization for bleeding varicose veins. SOCIAL HISTORY: He does not smoke or drink alcohol. FAMILY HISTORY: There is no family history of early coronary artery disease. REVIEW OF SYSTEMS: A complete review of systems was obtained, which is negative in detail except as mentioned above in the HPI. PHYSICAL EXAMINATION: VITAL SIGNS: Blood pressure 102/65, heart rate of 90 and irregular, respiratory rate of 14. GENERAL: Comfortable in no acute distress. HEENT: Anicteric. No xanthelasma. Lips without cyanosis. NECK: No JVD. Carotids 2+ and symmetric. No carotid bruits. LUNGS: CTA bilaterally. No wheezes or rhonchi. No accessory muscle use. COR: Irregularly irregular. Normal S1 and S2. ABD: Soft, nontender, nondistended. Normal bowel sounds. No abdominal bruits. EXT: There is 2+ bilateral lower extremity edema with severe chronic bilateral venous stasis changes bilaterally. SKIN: Warm. Dry. No venous stasis changes. History And Physical [address] [place] [address] NAME: MAKSIM PRINGLE : 60 STATUS : ADM IN [facility]#: [id number] AGE: 55 ADM/REG DATE : 07/15/16 MR#: [id number] REPORT SERV DATE: 07/15/16 DICTATED BY: MAMADOU AUSTIN DATE: 07/15/16 REPORT STATUS : Draft TRANSCRIBED BY: ATA DATE: 07/15/16 MS: No kyphosis. NEURO/PSYCH: Oriented x3. No anxiety or depression. LABORATORY STUDIES: Potassium of 3.8, creatinine of 1.08. Hematocrit of 24.3. INR of 1.1. Troponin of 0.03 and 0.04. BNP of 718. EKG: Admission EKG shows atrial fibrillation with rapid ventricular rate 123 beats per minute. Occasional premature ventricular contractions are noted. Nonspecific T-wave abnormalities noted. IMPRESSION: Mr. Pringle is a 55-year-old man with longstanding chronic systolic congestive heart failure, admitted with an acute exacerbation. He is chronically in atrial fibrillation, although this rate is increased on his ER presentation. He is not on anticoagulation due to multiple recent bleeding events including lower extremity varicose vein bleeding and gastrointestinal bleeding. I have recommended restarting his home medications. We will increase his Coreg for rate control. I have recommended IV Bumex as an inpatient. I will have him seen by the heart failure service for consultation regarding diet and lifestyle measures. HUMA/ATA Mamadou Austin M.D. / [id number] CC: Ayaan Cox M.D.
[2016-07-14 20:52] LABS: BASOPHILS 0.6 %; BASOPHILS ABSOLUTE 0.02 10/3/uL (0.0-0.16); EOSINOPHILS 2.3 %; EOSINOPHILS ABSOLUTE 0.08 10/3/uL (0.0-0.53); HEMATOCRIT 24.3 % (40.0-51.0); HEMOGLOBIN 8.2 g/dL (13.6-17.8); LYMPHOCYTES 17.3 %; LYMPHOCYTES ABSOLUTE 0.59 10/3/uL (0.67-4.30); MANUAL DIFF NO %; MEAN CORPUS HGB CONC 33.7 g/dL (32.0-36.0); MEAN CORPUSCULAR HEMOGLOB 30.3 pg (26.0-34.0); MEAN CORPUSCULAR VOLUME 89.7 fL (80-100); MEAN PLATELET VOLUME 9.6 fL (9.2-13.0); MONOCYTES 11.1 %; MONOCYTES ABSOLUTE 0.38 10/3/uL (0.21-1.20); NEUTROPHILS 68.7 %; NEUTROPHILS ABSOLUTE 2.34 10/3/uL (2.02-8.40); PLATELET COUNT 163 10/3/uL (150-400); RBC DISTRIBUTION WIDTH 16.4 % (12.0-16.0); RED CELL COUNT 2.71 10/6/uL (4.7-6.1); WHITE BLOOD CELLS 3.4 10/3/uL (4.5-10.5)
[2016-07-14 20:59] LABS: INTERNATIONAL NORMAL RATI 1.1 UNITS (-); PARTIAL THROMBO TIME 30.2 SEC (22.5-37.2); PROTIME (NOT ORD) 14.3 SEC (12.0-14.5)
[2016-07-14 21:08] LABS: BUN (BLOOD UREA NITROGEN) 12 MG/DL (6-23); CALCIUM, SERUM 8.5 MG/DL (8.5-10.4); CHEST PAIN PROFILE TAT 0 Hrs 22 Mins; CREATININE 1.08 MG/DL (0.70-1.30); GFR AFRICAN AMERICAN 89 ML/MIN (>=60); GFR NON AFRICAN AMERICAN 77 ML/MIN (>=60); GLUCOSE, SERUM 80 MG/DL (60-99); SODIUM, SERUM 135 MMOL/L (135-148); TROPONIN I 0.03 NG/ML (<0.05)
[2016-07-14 21:13] LABS: CHLORIDE, SERUM 94 MMOL/L (96-112); CO2 (CARBON DIOXIDE) 27 MMOL/L (24-34); POTASSIUM, SERUM 3.4 MMOL/L (3.5-5.3)
[2016-07-15 04:00] LABS: POTASSIUM, SERUM 3.8 MMOL/L (3.5-5.3); TROPONIN I 0.04 NG/ML (<0.05)
[2016-07-16 05:31] LABS: BASOPHILS 0.7 %; BASOPHILS ABSOLUTE 0.02 10/3/uL (0.0-0.16); EOSINOPHILS 3.8 %; EOSINOPHILS ABSOLUTE 0.11 10/3/uL (0.0-0.53); HEMATOCRIT 24.6 % (40.0-51.0); HEMOGLOBIN 8.3 g/dL (13.6-17.8); IMMATURE GRANULOCYTES 0.7 %; IMMATURE GRANULOCYTES ABSOLUTE 0.02 10/3/uL (0.0-0.11); LYMPHOCYTES 18.4 %; LYMPHOCYTES ABSOLUTE 0.53 10/3/uL (0.67-4.30); MEAN CORPUS HGB CONC 33.7 g/dL (32.0-36.0); MEAN CORPUSCULAR HEMOGLOB 30.9 pg (26.0-34.0); MEAN CORPUSCULAR VOLUME 91.4 fL (80-100); MEAN PLATELET VOLUME 10.6 fL (9.2-13.0); MONOCYTES 18.1 %; MONOCYTES ABSOLUTE 0.52 10/3/uL (0.21-1.20); NEUTROPHILS 58.3 %; NEUTROPHILS ABSOLUTE 1.68 10/3/uL (2.02-8.40); PLATELET COUNT 157 10/3/uL (150-400); RBC DISTRIBUTION WIDTH 16.8 % (12.0-16.0); RED CELL COUNT 2.69 10/6/uL (4.7-6.1); WHITE BLOOD CELLS 2.9 10/3/uL (4.5-10.5)
[2016-07-16 05:32] LABS: MANUAL DIFF NO %
[2016-07-16 05:47] LABS: CALCIUM, SERUM 8.7 MG/DL (8.5-10.4); CHLORIDE, SERUM 97 MMOL/L (96-112); CO2 (CARBON DIOXIDE) 30 MMOL/L (24-34); CREATININE 1.51 MG/DL (0.70-1.30); GFR AFRICAN AMERICAN 59 ML/MIN (>=60); GFR NON AFRICAN AMERICAN 51 ML/MIN (>=60); GLUCOSE, SERUM 91 MG/DL (60-99); POTASSIUM, SERUM 4.2 MMOL/L (3.5-5.3); SODIUM, SERUM 136 MMOL/L (135-148)
[2016-07-16 05:48] LABS: BUN (BLOOD UREA NITROGEN) 16 MG/DL (6-23)
[2016-07-17 05:45] LABS: BASOPHILS 0.7 %; BASOPHILS ABSOLUTE 0.02 10/3/uL (0.0-0.16); EOSINOPHILS 3.4 %; HEMATOCRIT 23.5 % (40.0-51.0); IMMATURE GRANULOCYTES 0.3 %; IMMATURE GRANULOCYTES ABSOLUTE 0.01 10/3/uL (0.0-0.11); LYMPHOCYTES 20.6 %; LYMPHOCYTES ABSOLUTE 0.61 10/3/uL (0.67-4.30); MEAN CORPUSCULAR HEMOGLOB 30.3 pg (26.0-34.0); MONOCYTES 14.9 %; MONOCYTES ABSOLUTE 0.44 10/3/uL (0.21-1.20); NEUTROPHILS 60.1 %; NEUTROPHILS ABSOLUTE 1.78 10/3/uL (2.02-8.40); PLATELET COUNT 171 10/3/uL (150-400); RBC DISTRIBUTION WIDTH 17.1 % (12.0-16.0); RED CELL COUNT 2.64 10/6/uL (4.7-6.1)
[2016-07-17 05:49] LABS: MANUAL DIFF NO %
[2016-07-17 05:52] LABS: CALCIUM, SERUM 8.5 MG/DL (8.5-10.4); CHLORIDE, SERUM 97 MMOL/L (96-112); CO2 (CARBON DIOXIDE) 29 MMOL/L (24-34); CREATININE 1.64 MG/DL (0.70-1.30); GFR AFRICAN AMERICAN 54 ML/MIN (>=60); GFR NON AFRICAN AMERICAN 46 ML/MIN (>=60); GLUCOSE, SERUM 86 MG/DL (60-99); POTASSIUM, SERUM 3.8 MMOL/L (3.5-5.3); SODIUM, SERUM 135 MMOL/L (135-148)
[2016-07-17 05:53] LABS: BUN (BLOOD UREA NITROGEN) 22 MG/DL (6-23)
[2016-07-21] MEDS ORDERED: COREG6 PO (22:21)
[2016-07-21] MEDS ORDERED: Z100 PO (22:21)
[2016-07-21] MEDS ORDERED: SYN.025B PO (22:21)
[2016-07-21] MEDS ORDERED: BUM2 PO (22:21)
[2016-07-21] MEDS ORDERED: SPIRO25 PO (22:22)
[2016-07-21] MEDS ORDERED: ASAB PO (22:22)
[2016-10-27] MEDS ORDERED: HALF81 PO (15:44)
[2016-10-27] MEDS ORDERED: BUM1 PO (15:45)
[2016-10-27] MEDS ORDERED: SYN.025B PO (15:45)
[2016-10-27] MEDS ORDERED: Z100 PO (15:45)
[2016-10-27] MEDS ORDERED: NORCO1 TAB PO (15:46)
[2016-11-04] MEDS ORDERED: CORDARONE PO (13:09)
[2016-11-04] MEDS ORDERED: COREG3 PO (13:10)
[2016-11-04] MEDS ORDERED: IMDUR30 PO (13:11)
[2016-11-04] MEDS ORDERED: ENULOSE PO (13:13)
[2016-11-04] MEDS ORDERED: KLOR-CON20 MEQ PO (13:14)
[2016-11-04] MEDS ORDERED: SPIRO25 PO (13:15)
[2016-11-04] MEDS ORDERED: APRES10B PO (13:15)
[2016-11-18] MEDS ORDERED: BUM1 PO (13:14)
[2016-11-18] MEDS ORDERED: Z100 PO (13:14)
[2016-11-18] MEDS ORDERED: LEVOTHYROXIN25 MCG PO (13:15)
[2016-11-18] MEDS ORDERED: CORDARONE PO (13:15)
[2016-11-18] MEDS ORDERED: COREG3 PO (13:15)
[2016-11-18] MEDS ORDERED: KLOR-CON M2020 MEQ PO (13:16)
[2016-11-18] MEDS ORDERED: IMDUR30 PO (13:16)
[2016-11-18] MEDS ORDERED: SPIRO25 PO (13:16)
[2016-11-18] MEDS ORDERED: APRES10B PO (13:16)
[2016-11-18] MEDS ORDERED: HALF81 PO (13:17)
[2016-11-18] MEDS ORDERED: LIPITOR10 PO (13:18)
[2016-11-22] MEDS ORDERED: LEVOTHYROXIN50 MCG PO (13:16)
[2016-11-22] MEDS ORDERED: VIBRATAB100 MG PO (13:20)
[2016-12-29] MEDS ORDERED: IMDUR30 PO (10:59)
[2017-01-02] MEDS ORDERED: BUM2 PO (10:21)
[2017-01-02] MEDS ORDERED: COREG6 PO (10:22)
[2017-01-02] MEDS ORDERED: FOLIC PO (10:24)
[2017-01-02] MEDS ORDERED: B1100 PO (10:25)
== END 2016-07-17 12:18 | disposition home or self-care (01) | DRG 291 ==
LOC: ER 19:46 → CDU1 22:10 → 7NO 07-15 10:51
PROVIDERS: Internal Medicine Cardiovascular Disease; Specialist
DX: I13.0 Hypertensive heart and chronic kidney disease with heart failure and stage 1 through stage 4 chronic kidney disease, or unspecified chronic kidney disease (principal); I50.23 Acute on chronic systolic (congestive) heart failure; D61.818 Other pancytopenia; I73.9 Peripheral vascular disease, unspecified; I48.2 Chronic atrial fibrillation; N18.9 Chronic kidney disease, unspecified; Z86.73 Personal history of transient ischemic attack (TIA), and cerebral infarction without residual deficits
CPT/HCPCS: 71010; 80048; 83735; 83880; 84132; 84484; 85025; 85610; 85730; 93005; 96374; 96375; 99291; A9270-GY

== ENCOUNTER 2016-07-19 07:30 | Emergency (ER) | payer MEDICARE ==
[2016-07-19 08:13] LABS: BASOPHILS 0.4 %; BASOPHILS ABSOLUTE 0.01 10/3/uL (0.0-0.16); EOSINOPHILS 3.7 %; EOSINOPHILS ABSOLUTE 0.09 10/3/uL (0.0-0.53); ER CBC TAT 0 Hrs 05 Mins; HEMATOCRIT 23.2 % (40.0-51.0); HEMOGLOBIN 7.9 g/dL (13.6-17.8); IMMATURE GRANULOCYTES 0.4 %; IMMATURE GRANULOCYTES ABSOLUTE 0.01 10/3/uL (0.0-0.11); LYMPHOCYTES 28.2 %; LYMPHOCYTES ABSOLUTE 0.68 10/3/uL (0.67-4.30); MANUAL DIFF NO %; MEAN CORPUS HGB CONC 34.1 g/dL (32.0-36.0); MEAN CORPUSCULAR HEMOGLOB 30.3 pg (26.0-34.0); MEAN CORPUSCULAR VOLUME 88.9 fL (80-100); MEAN PLATELET VOLUME 9.2 fL (9.2-13.0); MONOCYTES 19.1 %; MONOCYTES ABSOLUTE 0.46 10/3/uL (0.21-1.20); NEUTROPHILS 48.2 %; NEUTROPHILS ABSOLUTE 1.16 10/3/uL (2.02-8.40); PLATELET COUNT 154 10/3/uL (150-400); RBC DISTRIBUTION WIDTH 16.7 % (12.0-16.0); RED CELL COUNT 2.61 10/6/uL (4.7-6.1); WHITE BLOOD CELLS 2.4 10/3/uL (4.5-10.5)
[2016-07-19 08:20] LABS: INTERNATIONAL NORMAL RATI 1.1 UNITS (-); PARTIAL THROMBO TIME 31.4 SEC (22.5-37.2); PROTIME (NOT ORD) 14.5 SEC (12.0-14.5)
[2016-07-19 08:30] LABS: CALCIUM, SERUM 8.3 MG/DL (8.5-10.4); CHEST PAIN PROFILE TAT 0 Hrs 22 Mins; CHLORIDE, SERUM 98 MMOL/L (96-112); CREATININE 1.86 MG/DL (0.70-1.30); GFR AFRICAN AMERICAN 46 ML/MIN (>=60); GFR NON AFRICAN AMERICAN 40 ML/MIN (>=60); GLUCOSE, SERUM 84 MG/DL (60-99); POTASSIUM, SERUM 3.8 MMOL/L (3.5-5.3); SODIUM, SERUM 136 MMOL/L (135-148); TROPONIN I 0.03 NG/ML (<0.05)
[2016-07-19 08:32] LABS: BUN (BLOOD UREA NITROGEN) 28 MG/DL (6-23); CO2 (CARBON DIOXIDE) 24 MMOL/L (24-34)
[2016-07-21] MEDS ORDERED: SYN.025B PO (22:21)
[2016-07-21] MEDS ORDERED: BUM2 PO (22:21)
[2016-07-21] MEDS ORDERED: COREG6 PO (22:21)
[2016-07-21] MEDS ORDERED: Z100 PO (22:21)
[2016-07-21] MEDS ORDERED: ASAB PO (22:22)
[2016-07-21] MEDS ORDERED: SPIRO25 PO (22:22)
[2016-10-27] MEDS ORDERED: HALF81 PO (15:44)
[2016-10-27] MEDS ORDERED: Z100 PO (15:45)
[2016-10-27] MEDS ORDERED: SYN.025B PO (15:45)
[2016-10-27] MEDS ORDERED: BUM1 PO (15:45)
[2016-10-27] MEDS ORDERED: NORCO1 TAB PO (15:46)
[2016-11-04] MEDS ORDERED: CORDARONE PO (13:09)
[2016-11-04] MEDS ORDERED: COREG3 PO (13:10)
[2016-11-04] MEDS ORDERED: IMDUR30 PO (13:11)
[2016-11-04] MEDS ORDERED: ENULOSE PO (13:13)
[2016-11-04] MEDS ORDERED: KLOR-CON20 MEQ PO (13:14)
[2016-11-04] MEDS ORDERED: APRES10B PO (13:15)
[2016-11-04] MEDS ORDERED: SPIRO25 PO (13:15)
[2016-11-18] MEDS ORDERED: Z100 PO (13:14)
[2016-11-18] MEDS ORDERED: BUM1 PO (13:14)
[2016-11-18] MEDS ORDERED: LEVOTHYROXIN25 MCG PO (13:15)
[2016-11-18] MEDS ORDERED: COREG3 PO (13:15)
[2016-11-18] MEDS ORDERED: CORDARONE PO (13:15)
[2016-11-18] MEDS ORDERED: IMDUR30 PO (13:16)
[2016-11-18] MEDS ORDERED: KLOR-CON M2020 MEQ PO (13:16)
[2016-11-18] MEDS ORDERED: APRES10B PO (13:16)
[2016-11-18] MEDS ORDERED: SPIRO25 PO (13:16)
[2016-11-18] MEDS ORDERED: HALF81 PO (13:17)
[2016-11-18] MEDS ORDERED: LIPITOR10 PO (13:18)
[2016-11-22] MEDS ORDERED: LEVOTHYROXIN50 MCG PO (13:16)
[2016-11-22] MEDS ORDERED: VIBRATAB100 MG PO (13:20)
[2016-12-29] MEDS ORDERED: IMDUR30 PO (10:59)
[2017-01-02] MEDS ORDERED: BUM2 PO (10:21)
[2017-01-02] MEDS ORDERED: COREG6 PO (10:22)
[2017-01-02] MEDS ORDERED: FOLIC PO (10:24)
[2017-01-02] MEDS ORDERED: B1100 PO (10:25)
[2017-01-07] MEDS ORDERED: BUM2 PO (09:11)
[2017-01-07] MEDS ORDERED: COREG6 PO (09:12)
[2017-01-07] MEDS ORDERED: VITAMIN B-1 PO (09:12)
[2017-01-07] MEDS ORDERED: [UNRECOGNIZED DRUG - CODE] PO (09:13)
[2017-01-07] MEDS ORDERED: SYN.05 PO (09:13)
[2017-01-07] MEDS ORDERED: HYDROCORT5 MG PO (09:14)
[2017-01-07] MEDS ORDERED: ZONEGRAN PO (09:15)
[2017-01-07] MEDS ORDERED: Z100 PO (09:17)
[2017-01-07] MEDS ORDERED: ASAB PO (09:18)
[2017-01-07] MEDS ORDERED: CORDARONE PO (09:18)
== END 2016-07-19 11:53 | disposition home or self-care (01) ==
LOC: ER 07:30
PROVIDERS: Hospitalist
DX: I50.9 Heart failure, unspecified (principal); N18.9 Chronic kidney disease, unspecified; D64.9 Anemia, unspecified; Z91.14 Patient's other noncompliance with medication regimen; I48.91 Unspecified atrial fibrillation; Z86.73 Personal history of transient ischemic attack (TIA), and cerebral infarction without residual deficits; Z88.8 Allergy status to other drugs, medicaments and biological substances; Z79.82 Long term (current) use of aspirin; Z79.899 Other long term (current) drug therapy
CPT/HCPCS: 71010; 80048; 83735; 83880; 84484; 85025; 85610; 85730; 93005; 96374; 96376; 99285; A9270-GY

== ENCOUNTER 2016-07-21 23:02 | Inpatient (IN) | payer MEDICARE ==
--- NOTE | ~2016-07-21 | DS ---
Discharge Summary [address] [place]. [address] NAME: MAKSIM LOZANO : 60 STATUS : DIS IN PAT#: [id number] AGE: 55 ADM/REG DATE : 07/22/16 MR#: [id number] REPORT SERV DATE: 07/26/16 DICTATED BY: DASIA ARANGO DATE: 07/26/16 REPORT STATUS : Draft TRANSCRIBED BY: MODL DATE: 07/26/16 ADMISSION DATE: 07/22/2016 DISCHARGE DATE: 07/26/2016 DIAGNOSES ON ADMISSION: 1. Acute systolic heart failure exacerbation. 2. Pancytopenia, chronic in nature. 3. Chronic kidney disease. 4. Varicose veins. 5. Atrial fibrillation, chronic rate controlled. 6. History of multiple abdominal surgeries. 7. History of stomach surgery, not a candidate for anticoagulation. DIAGNOSES ON DISCHARGE: 1. Anasarca. 2. Lower extremity edema, resolved. 3. Acute congestive heart failure exacerbation, resolved/chronic systolic dysfunction, currently compensated. 4. Atrial fibrillation, rate controlled. 5. Chronic kidney disease, creatinine is still at the baseline. 6. Pancytopenia, mildly improved. 7. Hypomagnesemia, replaced. CONSULTANTS ON THE CASE: Traveling Inventory Associate, Dr. Sams, and Dr. Da Silva. IMAGING STUDIES DONE DURING THIS HOSPITALIZATION: 1. Bilateral lower extremity duplex ultrasound, no evidence of DVT. Done on 07/24/2016. 2. Chest x-ray, PA and lateral on 07/23/2016 showed cardiomegaly with mild residual venous congestion and continued small right-sided pleural effusion. 3. Ultrasound of the liver done on 07/24/2016 showed gallbladder demonstrating a non- echoic defect consistent with a polyp. Liver and common biliary duct are normal. Right kidney and pancreas are normal. Portal vein demonstrates normal hepatopetal flow. Note made that there is fluid in the Morison's pouch of questionable significance. HISTORY OF PRESENT ILLNESS: Briefly, this is a 55-year-old male with multiple comorbidities and frequent admissions, was admitted by my colleague Dr. Ku on 07/21/2016 for swollen scrotum and legs, and he was found to have CHF exacerbation with anasarca, lower extremity edema. For the details of history of present illness, please refer to the history of present illness dictated by Dr. Ku on 07/21/2016. HOSPITAL COURSE: Briefly, the patient was seen afterwards by Dr. Benjamin on 07/22/2016. The patient was started on intravenous diuresis with Bumex, and cook helper dessert Dr. Sams was consulted. He also agreed with intravenous diuresis and the lin to this patient to maintain fluid balance, and not to be volume overloaded. Subsequently, the patient was switched to oral Bumex, and his creatinine was monitored. The patient has chronic kidney disease and Discharge Summary [address] [place]. [address] NAME: MAKSIM LOZANO : 60 STATUS : DIS IN PAT#: [id number] AGE: 55 ADM/REG DATE : 07/22/16 MR#: [id number] REPORT SERV DATE: 07/26/16 DICTATED BY: DASIA ARANGO DATE: 07/26/16 REPORT STATUS : Draft TRANSCRIBED BY: ATA DATE: 07/26/16 his creatinine fluctuates from 1.08 to 1.6. Creatinine still was in the range of his chronic kidney disease. On 07/25/2016, creatinine was 1.54, and today on 07/26/2016, it was 1.58. For the last two days, the patient was on oral Bumex 2 mg twice a day. At his home dose, but since he was in a negative fluid balance, so we reduced his Bumex to 1 mg p.o. twice a day. The patient was offered to stay one more day to recheck his creatinine, but he strongly refused to stay. He demanded to be discharged, and he was doing well. He did not have any shortness of breath, so we discharged him with a recommendation to take Bumex 1 mg twice a day for several days and check his creatinine at [facility] next week. He had a scheduled appointment on 07/31/2016 to check his BMP and magnesium level. The patient was told that if necessary, he can be switched to his Bumex at 2 mg twice a day. He was explained that since now he is in the negative fluid balance, he needs to reduce it with a recheck of his creatinine, and then if necessary he can go back to his home dose 2 mg b.i.d. of Bumex. Also, the patient was in chronic atrial fibrillation, and his heart rate was in 90s, low 100s, 105, and 110. He was on a Coreg 12.5 p.o. b.i.d., which was recommended by Dr. Sams. Today, Dr. Da Silva saw the patient, and he recommended to increase Coreg to 25 mg twice a day, but the patient's blood pressure was borderline, so he would not tolerate [address] Da Silva also strongly recommended to stay one more day to monitor his heart rate and blood pressure on the increased dose of Coreg, but the patient strongly refused with a demand to be discharged, so I personally spoke with Dr. Da Silva, and he said as long as heart rate notes above 120, he is okay to be discharged on Coreg 12.5 p.o. b.i.d. This was explained to the patient and the patient was discharged on Coreg 12.5 p.o. twice a day. Regarding his pancytopenia, the numbers have improved. His white count was 4.1, hemoglobin of 8.2, hematocrit of 24.6, and a platelet count was 151 on the day of discharge, 07/26/2016. His sodium was 137, potassium 3.7, chloride 95, carbon dioxide 36, BUN was 30, creatinine was 1.58, and blood sugar was 81. Magnesium today was 1.9. We also checked his TSH, it was 2.85. His haptoglobin was 110 and his bilirubin was elevated during this hospitalization, initially it was 3.6, subsequently came to 2.3, but it was mostly indirect bilirubin which was 1.9, and his liver enzymes were normal. ALT was 38, and AST was 34. His LDH was 166 as well in the normal range. The patient was doing very well. His edema has resolved. He was told to be on a fluid restriction 1500 per 24 hours per my and Dr. Sams's recommendation. He needs to follow up with Dr. Sams on 08/26/2016 at 1415 hours. He needs to follow up with [facility]. He is scheduled for 07/31/[address] Rushing to check his BMP and magnesium level. DISCHARGE MEDICATIONS: Allopurinol 100 mg p.o. b.i.d.; aspirin 81 mg a day; Bumex dose was reduced to 1 mg p.o. twice a day, and prescription was written, but it was explained to the patient that he needs to follow up with Dr. Rushing on 07/31/2016 to check BMP, and if the creatinine stays stable, he can increase his Bumex to 2 mg twice a day; Coreg 12.5 mg p.o. b.i.d., it was increased per the recommendation of Dr. Sams and Dr. Da Silva; Synthroid 25 mcg a day; spironolactone 25 mg p.o. daily; and magnesium oxide prescription was given 400 mg p.o. b.i.d. Discharge Summary [address] [address] NAME: MAKSIM LOZANO : 60 STATUS : DIS IN PAT#: [id number] AGE: 55 ADM/REG DATE : 07/22/16 MR#: [id number] REPORT SERV DATE: 07/26/16 DICTATED BY: DASIA ARANGO DATE: 07/26/16 REPORT STATUS : Draft TRANSCRIBED BY: MODL DATE: 07/26/16 Once again, the patient refused to stay additional day to check his creatinine. The patient was discharged in stable condition. I spent 45 minutes on discharge. MG/MODL Dasia Arango M.D. / [id number] CC: Daja Carrillo N.P. [facility] Mamadou Sams M.D.
--- NOTE | ~2016-07-21 | CN ---
Consultation Report [id number] [facility] [place]. [address] NAME: MAKSIM PRINGLE : 60 STATUS : ADM Vinicio PAT#: [id number] AGE: 55 ADM/REG DATE : 07/21/16 MR#: [id number] REPORT SERV DATE: 07/22/16 DICTATED BY: MAMADOU AUSTIN DATE: 07/22/16 REPORT STATUS : Draft TRANSCRIBED BY: MODL DATE: 07/22/16 CARDIOVASCULAR CONSULTATION DATE OF CONSULTATION: 07/21/2016 CHIEF COMPLAINT: Lower extremity edema. HISTORY OF PRESENT ILLNESS: Mr. Pringle is a 55-year-old man with multiple medical problems with a longstanding history of a nonischemic cardiomyopathy. EF 30-35% by echo in 04/2016. Chronic atrial fibrillation and chronic systolic congestive heart failure. He has a history of multiple severe GI bleeds and is not on anticoagulation for this reason. He was admitted about a week ago with worsening volume overload and lower extremity edema. He underwent initial diuresis with IV Bumex 2 mg three times a day. His creatinine started to climb. He was placed on p.o. Bumex with hopes that this would balance his worsening renal insufficiency and his need for continued diuresis. As an outpatient, however, he had worsening of bilateral lower extremity edema and is readmitted for further evaluation. The patient experiences some symptoms of dyspnea. He has not had any chest pain. PAST MEDICAL HISTORY: 1. Chronic atrial fibrillation. 2. Chronic systolic congestive heart failure, EF 30-35% by echo 04/2016. 3. History of severe GI bleed. 4. Status post Yony-en-Y partial gastrectomy for gastric ulcer. 5. Peripheral vascular disease. 6. Severe bilateral venous insufficiency. 7. Chronic kidney disease. 8. History of stroke. 9. Pancytopenia. 10.History of bleeding varicose veins requiring hospitalization. FAMILY HISTORY: There is no family history of early coronary disease. SOCIAL HISTORY: He does not smoke or drink alcohol. REVIEW OF SYSTEMS: A complete review of systems was obtained which is negative in detail except as mentioned above in the HPI. ALLERGIES: SHAUNA INHIBITORS CAUSING ANGIOEDEMA. MEDICATIONS: Allopurinol 100 mg daily, aspirin 81 mg daily, Bumex 2 mg twice a day, Coreg 6.25 mg twice a day, Synthroid, and Aldactone 25 mg once a day. PHYSICAL EXAMINATION: Consultation Report [id number] [place]. [address] NAME: MAKSIM PRINGLE : 60 STATUS : ADM Vinicio PAT#: [id number] AGE: 55 ADM/REG DATE : 07/21/16 MR#: [id number] REPORT SERV DATE: 07/22/16 DICTATED BY: MAMADOU AUSTIN DATE: 07/22/16 REPORT STATUS : Draft TRANSCRIBED BY: MODL DATE: 07/22/16 VITAL SIGNS: Blood pressure 130/70, heart rate of 70, respiratory rate of 14. GENERAL: Comfortable in no acute distress. HEENT: Anicteric. No xanthelasma. Lips without cyanosis. NECK: No JVD. Carotids 2+ and symmetric. No carotid bruits. LUNGS: CTA bilaterally. No wheezes or rhonchi. No accessory muscle use. COR: Irregularly irregular. Normal S1 and S2. ABD: Soft, nontender, nondistended. Normal bowel sounds. No abdominal bruits. EXT: There is 2+ bilateral lower extremity edema. SKIN: Warm. Dry. No venous stasis changes. MS: No kyphosis. NEURO/PSYCH: Oriented x3. No anxiety or depression. LABORATORY STUDIES: White count of 2.0, hematocrit of 22. Creatinine of 1.1. BNP of 202, troponin of 0.03. IMPRESSION: The patient has significant bilateral lower extremity edema, I think at least partly due to congestive heart failure. When he was hospitalized about a week ago, he had progressive renal insufficiency in the setting of aggressive IV diuresis. He may need further renal input. Some of his lower extremity edema may not be related to congestive heart failure but may in fact be related to severe venous insufficiency. He has seen Dr. Ferrara of Vascular Surgery in the past. HUMA/KOKIL Mamadou Austin M.D. / [id number] CC: Daja Mendosa N.P.
--- NOTE | ~2016-07-21 | HP ---
History And Physical [id number] [place]. [address] NAME: MAKSIM LOZANO : 60 STATUS : ADM Vinicio PAT#: [id number] AGE: 55 ADM/REG DATE : 07/21/16 MR#: [id number] REPORT SERV DATE: 07/22/16 DICTATED BY: AYLEEN HINSON DATE: 07/22/16 REPORT STATUS : Draft TRANSCRIBED BY: MODL DATE: 07/22/16 DATE OF ADMISSION: 07/21/2016 CHIEF COMPLAINT: Swelling scrotum and legs. HISTORY OF PRESENT ILLNESS: The patient is a 55-year-old male with history of nonischemic cardiomyopathy, EF of 30% to 35% atrial fibrillation chronic on anticoagulation candidate due to bleeding, pancytopenia, however, on right additionally has varicose veins, CKD; who presents after having continued swelling in lower extremities despite having tried to do fluid restriction and started on spironolactone. The patient has had swelling that has now gone to his groin and his penis that is quite tender and painful. The patient was discharged from Cardiology Service less than one week ago and has had three additional ER visits with progressively elevating BMPs. Symptoms are constant, severe, pressure-type scrotal pain without radiation. No chest pain, headache, nausea, vomiting, or bleeding varice, but does have increased weakness and swelling. Symptoms worse with palpation, no relieving factors. Symptoms still currently present. PHYSICAL EXAMINATION: GENERAL: No fevers or chills but positive for weakness. EYES: Eye pain or visual changes. ENT: No sore throat or congestion. NEURO: No headache or confusion. SKIN: Does have swelling of the skin. No rashes or bruising. RESPIRATORY: No shortness of breath. The patient does have mild shortness of breath but has not had much exertion due to pain. CV: Bilateral edema but no palpitations. GI: No nausea, vomiting, or diarrhea. : Dysuria or hematuria. MUSCULOSKELETAL: Does have increased swelling. No arthralgias and endo positive for fatigue. HEME: No bleeding or bruising. No rhinorrhea. PSYCH: No anxiety or confusion. PAST MEDICAL HISTORY: Ischemic cardiomyopathy EF of 35% with pulmonary hypertension stroke in 2013 with parietotemporal encephalomalacia, CKD stage 3, atrial fibrillation off anticoagulation with bleeding, history peptic ulcer disease, does follow with Dr. Perrin; hypothyroidism, anemia of iron deficiency, pancytopenia followed by Dr. Ledesma, gastric outlet obstruction, chronic venous stasis lymphedema, general herpes, nonsustained ventricular tachycardia, tachycardia, and pancreatitis. SURGICAL HISTORY: Major bowel surgery possibly Billroth II and vagotomy or Yony-en-Y jejunostomy, partial small bowel resection secondary to gangrenous bowel in 2003, extensive adhesiolysis, ventral hernia, abdominal wall dehiscence with extended wound care, varicose veins stripping by Dr. Ferrara. ALLERGIES: SHAUNA INHIBITOR. History And Physical [address] [address] NAME: MAKSIM LOZANO : 60 STATUS : ADM Vinicio PAT#: [id number] AGE: 55 ADM/REG DATE : 07/21/16 MR#: [id number] REPORT SERV DATE: 07/22/16 DICTATED BY: AYLEEN HINSON DATE: 07/22/16 REPORT STATUS : Draft TRANSCRIBED BY: ATA DATE: 07/22/16 SOCIAL HISTORY: No smoking. Daily alcohol but stopped vodka. Has history of cocaine in the past. Disabled. and fairly homebound. FAMILY HISTORY: Diabetes, heart disease, and lymphedema. HOME MEDICATIONS: Allopurinol, aspirin, Bumex, Coreg, Synthroid, Aldactone. EKG rate of 104, QTc 549, appears atrial fib pattern with frequent PVCs, sinusoidal T-waves still noted in prior EKGs. PHYSICAL EXAMINATION: VITAL SIGNS: The patient's blood pressure 118/88, temperature 97.7, respirations 16, pulse 98, O2 saturation 90% on room air. GENERAL: Appears older than stated age. Moderate discomfort. EYES: Conjunctivae. ENT: Nares patent. Neck: With JVD. RESPIRATORY: Upper airways appear clear, mild rales in lower. CV: Irregularly irregular. Bilateral edema. Systolic ejection murmur. : Groin and penile swelling but tenderness. MUSCULOSKELETAL: Although moves all extremities multiple surgical scars on legs with 4+ edema bilaterally. SKIN: Warm with edema and old surgical changes. HEME: No active bleeding or bruising. NEURO: Alert and oriented. Moves all extremities. Symmetrical smile. PSYCH: Appropriate mood and affect. LABORATORY DATA: WBC count 2, H and H 7.7 and 22.6, MCV of 88.6, platelets 171. INR 1.1. BNP 902.5. Procalcitonin is still pending but BMP grossly within normal limits with a BUN and creatinine of 24 and 1.11 previously was 1.86 on most recent discharge, magnesium 1.8, troponin 0.03, calcium 8.2, potassium 3.8. ASSESSMENT AND PLAN: 1. Acute systolic heart failure exacerbation. 2. Bicytopenia chronic. 3. Chronic kidney disease. 4. Varicose veins. 5. Atrial fibrillation. 6. Late CVA ill defects. PLAN: 1. For acute systolic heart failure exacerbation, IV diuresis, gave a dose of metolazone 80 as discussed with [facility] requesting medicine admission. The patient was recently discharged this week, we will notify of admission. Heart failure protocol initiated. Beta sussy, spironolactone, no SHAUNA inhibitor secondary to angioedema history. 2. Bicytopenia chronic. Monitor with history of bleeding varicosities. Has had extensive History And Physical [address] [address] NAME: MAKSIM LOZANO : 60 STATUS : ADM Vinicio PAT#: [id number] AGE: 55 ADM/REG DATE : 07/21/16 MR#: [id number] REPORT SERV DATE: 07/22/16 DICTATED BY: AYLEEN HINSON DATE: 07/22/16 REPORT STATUS : Draft TRANSCRIBED BY: ATA DATE: 07/22/16 GI surgeries and has iron deficiency anemia. Follows with Dr. Ledesma. If any acute bleed, may require blood transfusion as tolerated blood transfusion in the past. 3. Chronic kidney disease history. Creatinine improved. Diuresis tolerated. 4. Varicose veins, supportive. 5. Atrial fibrillation, beta sussy. Monitor no anticoagulation candidate secondary to pancytopenia. DISPOSITION: Pending clinical improvement. DDN/MODL Ayleen Hinson MD / [id number] CC: Daja Mendosa N.P.
[2016-07-21 22:29] LABS: BASOPHILS ABSOLUTE 0.02 10/3/uL (0.0-0.16); EOSINOPHILS ABSOLUTE 0.06 10/3/uL (0.0-0.53); HEMATOCRIT 22.6 % (40.0-51.0); HEMOGLOBIN 7.7 g/dL (13.6-17.8); IMMATURE GRANULOCYTES 0.5 %; IMMATURE GRANULOCYTES ABSOLUTE 0.01 10/3/uL (0.0-0.11); INTERNATIONAL NORMAL RATI 1.1 UNITS (-); LYMPHOCYTES 28.5 %; LYMPHOCYTES ABSOLUTE 0.57 10/3/uL (0.67-4.30); MEAN CORPUS HGB CONC 34.1 g/dL (32.0-36.0); MEAN CORPUSCULAR HEMOGLOB 30.2 pg (26.0-34.0); MEAN CORPUSCULAR VOLUME 88.6 fL (80-100); MEAN PLATELET VOLUME 9.3 fL (9.2-13.0); MONOCYTES ABSOLUTE 0.34 10/3/uL (0.21-1.20); NUCLEATED RED BLOOD CELLS 4.9 /100WBC (0-0); PARTIAL THROMBO TIME 30.3 SEC (22.5-37.2); PLATELET COUNT 171 10/3/uL (150-400); PROTIME (NOT ORD) 14.1 SEC (12.0-14.5); RBC DISTRIBUTION WIDTH 16.7 % (12.0-16.0); RED CELL COUNT 2.55 10/6/uL (4.7-6.1)
[2016-07-21 22:30] LABS: ER CBC TAT 0 Hrs 13 Mins
[2016-07-21 22:31] LABS: MANUAL DIFF NO %
[2016-07-21 22:35] LABS: CALCIUM, SERUM 8.2 MG/DL (8.5-10.4); CHEST PAIN PROFILE TAT 0 Hrs 18 Mins; CHLORIDE, SERUM 102 MMOL/L (96-112); CO2 (CARBON DIOXIDE) 26 MMOL/L (24-34); GFR AFRICAN AMERICAN 86 ML/MIN (>=60); GFR NON AFRICAN AMERICAN 74 ML/MIN (>=60); GLUCOSE, SERUM 86 MG/DL (60-99); POTASSIUM, SERUM 3.8 MMOL/L (3.5-5.3); SODIUM, SERUM 140 MMOL/L (135-148); TROPONIN I 0.03 NG/ML (<0.05)
[2016-07-21 22:36] LABS: BUN (BLOOD UREA NITROGEN) 24 MG/DL (6-23); CREATININE 1.11 MG/DL (0.70-1.30)
[2016-07-21 22:49] LABS: EOSINOPHILS 2 %; EOSINOPHILS ABSOLUTE (CALC) 0.04 10/3/uL (0.0-0.53); ER DIFF TAT 0 Hrs 32 Mins; LYMPHOCYTES 28 %; LYMPHOCYTES ABSOLUTE (CALC) 0.56 10/3/uL (0.67-4.30); MONOCYTES 10 %; SEGMENTED NEUTROPHIL (0) 60 %; TOTAL NUCLEATED CELLS 50
[2016-07-21 22:50] LABS: ANISOCYTOSIS 1+ (5-10/OIF) (0-5/OIF); PLATELET ESTIMATE ADQ (ADEQUATE); TARGET CELLS FEW (3-10/OIF) (0-1/OIF)
[2016-07-22 02:58] LABS: PROCALCITONIN <0.05 ng/mL (<0.5)
[2016-07-22 03:44] LABS: ALLENS TEST Pos; BE (BASE EXCESS) -0.3 MEQ/L (0 +/- 2.5); CARBOXYHEMOGLOBIN 1.7 % (0-3); HEMOBLOGIN CONTENT 8.1 G/DL (14-18); INSTRUMENT SERIAL # 8087; METHEMOGLOBIN 0.3 % (0-3); O2 CONTENT 10.6 VOL% (18-24); PCO2 (CO2 TENSION) 38 MMHG (35-45); PO2 (O2 TENSION) 89 MMHG (79-93); SAMPLE Arterial; pH 7.42 (7.37-7.43)
[2016-07-22 11:31] LABS: BASOPHILS 0.4 %; BASOPHILS ABSOLUTE 0.01 10/3/uL (0.0-0.16); EOSINOPHILS 1.8 %; EOSINOPHILS ABSOLUTE 0.05 10/3/uL (0.0-0.53); HEMATOCRIT 23.2 % (40.0-51.0); HEMOGLOBIN 7.8 g/dL (13.6-17.8); IMMATURE GRANULOCYTES 0.4 %; IMMATURE GRANULOCYTES ABSOLUTE 0.01 10/3/uL (0.0-0.11); LYMPHOCYTES ABSOLUTE 0.41 10/3/uL (0.67-4.30); MEAN CORPUS HGB CONC 33.6 g/dL (32.0-36.0); MEAN CORPUSCULAR HEMOGLOB 29.9 pg (26.0-34.0); MEAN CORPUSCULAR VOLUME 88.9 fL (80-100); MEAN PLATELET VOLUME 9.7 fL (9.2-13.0); MONOCYTES 12.8 %; MONOCYTES ABSOLUTE 0.35 10/3/uL (0.21-1.20); NEUTROPHILS 69.6 %; NEUTROPHILS ABSOLUTE 1.91 10/3/uL (2.02-8.40); NUCLEATED RED BLOOD CELLS 2.4 /100WBC (0-0); PLATELET COUNT 161 10/3/uL (150-400); RBC DISTRIBUTION WIDTH 16.7 % (12.0-16.0); RED CELL COUNT 2.61 10/6/uL (4.7-6.1); WHITE BLOOD CELLS 2.7 10/3/uL (4.5-10.5)
[2016-07-22 11:32] LABS: MANUAL DIFF NO %
[2016-07-22 11:45] LABS: BUN (BLOOD UREA NITROGEN) 24 MG/DL (6-23); CALCIUM, SERUM 8.7 MG/DL (8.5-10.4); CHLORIDE, SERUM 100 MMOL/L (96-112); CO2 (CARBON DIOXIDE) 28 MMOL/L (24-34); CREATININE 1.12 MG/DL (0.70-1.30); GFR AFRICAN AMERICAN 85 ML/MIN (>=60); GFR NON AFRICAN AMERICAN 74 ML/MIN (>=60); GLUCOSE, SERUM 96 MG/DL (60-99); POTASSIUM, SERUM 3.7 MMOL/L (3.5-5.3); SODIUM, SERUM 138 MMOL/L (135-148); TROPONIN I 0.03 NG/ML (<0.05)
[2016-07-22 16:42] LABS: ASCORBIC ACID (UR NOT ORDER) NEG (NEG); BILIRUBIN, URINE NEGATIVE (NEG); KETONE, URINE NEGATIVE (NEG); LEUKOCYTE ESTERASE(NOT OR SMALL (NEG); WBC (NOT ORDERED) (RFLEX) 3 (0-5)
[2016-07-23 03:58] LABS: BASOPHILS 0.3 %; BASOPHILS ABSOLUTE 0.01 10/3/uL (0.0-0.16); EOSINOPHILS 1.3 %; EOSINOPHILS ABSOLUTE 0.05 10/3/uL (0.0-0.53); HEMOGLOBIN 9.3 g/dL (13.6-17.8); IMMATURE GRANULOCYTES 0.3 %; IMMATURE GRANULOCYTES ABSOLUTE 0.01 10/3/uL (0.0-0.11); LYMPHOCYTES ABSOLUTE 0.56 10/3/uL (0.67-4.30); MEAN CORPUS HGB CONC 32.9 g/dL (32.0-36.0); MEAN CORPUSCULAR VOLUME 91.3 fL (80-100); MEAN PLATELET VOLUME 10.5 fL (9.2-13.0); MONOCYTES 11.2 %; MONOCYTES ABSOLUTE 0.42 10/3/uL (0.21-1.20); NEUTROPHILS 71.9 %; NEUTROPHILS ABSOLUTE 2.69 10/3/uL (2.02-8.40); PLATELET COUNT 187 10/3/uL (150-400); RBC DISTRIBUTION WIDTH 16.9 % (12.0-16.0); WHITE BLOOD CELLS 3.7 10/3/uL (4.5-10.5)
[2016-07-23 03:59] LABS: HEMATOCRIT 28.3 % (40.0-51.0)
[2016-07-23 04:00] LABS: MANUAL DIFF NO %; RETICULOCYTE COUNT ABSOLUTE 63.2 10/3/uL (20.2-119.8)
[2016-07-23 04:13] LABS: BUN (BLOOD UREA NITROGEN) 26 MG/DL (6-23); CALCIUM, SERUM 9.2 MG/DL (8.5-10.4); CHLORIDE, SERUM 96 MMOL/L (96-112); CO2 (CARBON DIOXIDE) 31 MMOL/L (24-34); CREATININE 1.34 MG/DL (0.70-1.30); GFR AFRICAN AMERICAN 69 ML/MIN (>=60); GFR NON AFRICAN AMERICAN 59 ML/MIN (>=60); GLUCOSE, SERUM 109 MG/DL (60-99); POTASSIUM, SERUM 3.7 MMOL/L (3.5-5.3); SGOT(AST) 34 U/L (5-40); SGPT(ALT) 38 U/L (5-65); SODIUM, SERUM 139 MMOL/L (135-148)
[2016-07-23 04:29] LABS: TOTAL PROTEIN 7.9 G/DL (6.0-8.5)
[2016-07-23 04:30] LABS: A/G RATIO 0.6 (0.7-1.9); ALKALINE PHOSPHATASE 309 U/L (45-117); GLOBULIN 4.9 G/DL (2.5-4.1); TOTAL BILIRUBIN 3.6 MG/DL (0-1.2)
[2016-07-23 12:42] LABS: DIRECT BILIRUBIN 1.7 MG/DL (0.0-0.4); INDIRECT BILIRUBIN(NOT ORDER) 1.9 MG/DL (0.1-0.9)
[2016-07-23 13:07] LABS: ALLENS TEST Pos; BE (BASE EXCESS) 4.1 MEQ/L (0 +/- 2.5); CARBOXYHEMOGLOBIN 0.9 % (0-3); DEVICE NC; HCO3 (ACTUAL BICARBONATE) 28.7 MEQ/L (23-27); HEMOBLOGIN CONTENT 9.9 G/DL (14-18); INSTRUMENT SERIAL # 8083; METHEMOGLOBIN 0.3 % (0-3); O2 CONTENT 13.7 VOL% (18-24); OPERATOR ID 35859; PCO2 (CO2 TENSION) 44 MMHG (35-45); PO2 (O2 TENSION) 130 MMHG (79-93); SAMPLE Arterial; pH 7.44 (7.37-7.43)
[2016-07-24 06:53] LABS: BASOPHILS 0.2 %; BASOPHILS ABSOLUTE 0.01 10/3/uL (0.0-0.16); EOSINOPHILS ABSOLUTE 0.08 10/3/uL (0.0-0.53); HEMOGLOBIN 8.5 g/dL (13.6-17.8); IMMATURE GRANULOCYTES 0.2 %; IMMATURE GRANULOCYTES ABSOLUTE 0.01 10/3/uL (0.0-0.11); LYMPHOCYTES ABSOLUTE 0.53 10/3/uL (0.67-4.30); MEAN CORPUS HGB CONC 33.7 g/dL (32.0-36.0); MEAN CORPUSCULAR HEMOGLOB 30.2 pg (26.0-34.0); MEAN CORPUSCULAR VOLUME 89.7 fL (80-100); MEAN PLATELET VOLUME 10.6 fL (9.2-13.0); MONOCYTES 6.4 %; MONOCYTES ABSOLUTE 0.26 10/3/uL (0.21-1.20); NEUTROPHILS 78.2 %; PLATELET COUNT 153 10/3/uL (150-400); RBC DISTRIBUTION WIDTH 16.7 % (12.0-16.0); RED CELL COUNT 2.81 10/6/uL (4.7-6.1); WHITE BLOOD CELLS 4.1 10/3/uL (4.5-10.5)
[2016-07-24 06:54] LABS: HEMATOCRIT 25.2 % (40.0-51.0); MANUAL DIFF NO %
[2016-07-24 07:15] LABS: ALBUMIN 3.4 G/DL (3.5-5.0); BUN (BLOOD UREA NITROGEN) 27 MG/DL (6-23); CALCIUM, SERUM 9.4 MG/DL (8.5-10.4); CHLORIDE, SERUM 96 MMOL/L (96-112); CO2 (CARBON DIOXIDE) 30 MMOL/L (24-34); CREATININE 1.46 MG/DL (0.70-1.30); GFR AFRICAN AMERICAN 62 ML/MIN (>=60); GFR NON AFRICAN AMERICAN 53 ML/MIN (>=60); POTASSIUM, SERUM 3.2 MMOL/L (3.5-5.3); SGOT(AST) 22 U/L (5-40); SGPT(ALT) 28 U/L (5-65); SODIUM, SERUM 137 MMOL/L (135-148); TOTAL PROTEIN 7.3 G/DL (6.0-8.5)
[2016-07-24 07:16] LABS: A/G RATIO 0.9 (0.7-1.9); ALKALINE PHOSPHATASE 247 U/L (45-117); GLOBULIN 3.9 G/DL (2.5-4.1); GLUCOSE, SERUM 79 MG/DL (60-99); TOTAL BILIRUBIN 2.3 MG/DL (0-1.2)
[2016-07-25 05:28] LABS: BASOPHILS 0.3 %; BASOPHILS ABSOLUTE 0.01 10/3/uL (0.0-0.16); EOSINOPHILS 1.5 %; EOSINOPHILS ABSOLUTE 0.06 10/3/uL (0.0-0.53); HEMATOCRIT 23.8 % (40.0-51.0); IMMATURE GRANULOCYTES 0.3 %; IMMATURE GRANULOCYTES ABSOLUTE 0.01 10/3/uL (0.0-0.11); LYMPHOCYTES 15.4 %; LYMPHOCYTES ABSOLUTE 0.61 10/3/uL (0.67-4.30); MEAN CORPUS HGB CONC 33.6 g/dL (32.0-36.0); MEAN CORPUSCULAR HEMOGLOB 29.9 pg (26.0-34.0); MEAN CORPUSCULAR VOLUME 88.8 fL (80-100); MEAN PLATELET VOLUME 10.1 fL (9.2-13.0); MONOCYTES 11.1 %; MONOCYTES ABSOLUTE 0.44 10/3/uL (0.21-1.20); NEUTROPHILS 71.4 %; NEUTROPHILS ABSOLUTE 2.84 10/3/uL (2.02-8.40); PLATELET COUNT 150 10/3/uL (150-400); RBC DISTRIBUTION WIDTH 16.9 % (12.0-16.0); RED CELL COUNT 2.68 10/6/uL (4.7-6.1)
[2016-07-25 05:29] LABS: MANUAL DIFF NO %
[2016-07-25 05:49] LABS: CALCIUM, SERUM 8.6 MG/DL (8.5-10.4); CHLORIDE, SERUM 96 MMOL/L (96-112); CO2 (CARBON DIOXIDE) 33 MMOL/L (24-34); CREATININE 1.54 MG/DL (0.70-1.30); GFR AFRICAN AMERICAN 58 ML/MIN (>=60); GFR NON AFRICAN AMERICAN 50 ML/MIN (>=60); GLUCOSE, SERUM 87 MG/DL (60-99); POTASSIUM, SERUM 3.3 MMOL/L (3.5-5.3); SODIUM, SERUM 138 MMOL/L (135-148)
[2016-07-25 05:50] LABS: BUN (BLOOD UREA NITROGEN) 31 MG/DL (6-23)
[2016-07-26 06:59] LABS: BASOPHILS 0.5 %; BASOPHILS ABSOLUTE 0.02 10/3/uL (0.0-0.16); EOSINOPHILS 1.7 %; EOSINOPHILS ABSOLUTE 0.07 10/3/uL (0.0-0.53); HEMATOCRIT 24.6 % (40.0-51.0); HEMOGLOBIN 8.2 g/dL (13.6-17.8); LYMPHOCYTES 16.3 %; LYMPHOCYTES ABSOLUTE 0.66 10/3/uL (0.67-4.30); MEAN CORPUS HGB CONC 33.3 g/dL (32.0-36.0); MEAN CORPUSCULAR HEMOGLOB 29.7 pg (26.0-34.0); MEAN CORPUSCULAR VOLUME 89.1 fL (80-100); MEAN PLATELET VOLUME 10.7 fL (9.2-13.0); MONOCYTES 12.8 %; MONOCYTES ABSOLUTE 0.52 10/3/uL (0.21-1.20); NEUTROPHILS 68.7 %; NEUTROPHILS ABSOLUTE 2.78 10/3/uL (2.02-8.40); PLATELET COUNT 151 10/3/uL (150-400); RBC DISTRIBUTION WIDTH 17.3 % (12.0-16.0); RED CELL COUNT 2.76 10/6/uL (4.7-6.1); WHITE BLOOD CELLS 4.1 10/3/uL (4.5-10.5)
[2016-07-26 07:01] LABS: MANUAL DIFF NO %
[2016-07-26 07:04] LABS: BUN (BLOOD UREA NITROGEN) 30 MG/DL (6-23); CALCIUM, SERUM 8.6 MG/DL (8.5-10.4); CHLORIDE, SERUM 95 MMOL/L (96-112); CO2 (CARBON DIOXIDE) 36 MMOL/L (24-34); CREATININE 1.58 MG/DL (0.70-1.30); GFR AFRICAN AMERICAN 56 ML/MIN (>=60); GFR NON AFRICAN AMERICAN 49 ML/MIN (>=60); GLUCOSE, SERUM 81 MG/DL (60-99); POTASSIUM, SERUM 3.7 MMOL/L (3.5-5.3); SODIUM, SERUM 137 MMOL/L (135-148)
[2016-07-26] MEDS ORDERED: MAGOX4 PO (10:12)
[2016-10-27] MEDS ORDERED: HALF81 PO (15:44)
[2016-10-27] MEDS ORDERED: Z100 PO (15:45)
[2016-10-27] MEDS ORDERED: BUM1 PO (15:45)
[2016-10-27] MEDS ORDERED: SYN.025B PO (15:45)
[2016-10-27] MEDS ORDERED: NORCO1 TAB PO (15:46)
[2016-11-04] MEDS ORDERED: CORDARONE PO (13:09)
[2016-11-04] MEDS ORDERED: COREG3 PO (13:10)
[2016-11-04] MEDS ORDERED: IMDUR30 PO (13:11)
[2016-11-04] MEDS ORDERED: ENULOSE PO (13:13)
[2016-11-04] MEDS ORDERED: KLOR-CON20 MEQ PO (13:14)
[2016-11-04] MEDS ORDERED: APRES10B PO (13:15)
[2016-11-04] MEDS ORDERED: SPIRO25 PO (13:15)
[2016-11-18] MEDS ORDERED: BUM1 PO (13:14)
[2016-11-18] MEDS ORDERED: Z100 PO (13:14)
[2016-11-18] MEDS ORDERED: CORDARONE PO (13:15)
[2016-11-18] MEDS ORDERED: LEVOTHYROXIN25 MCG PO (13:15)
[2016-11-18] MEDS ORDERED: COREG3 PO (13:15)
[2016-11-18] MEDS ORDERED: IMDUR30 PO (13:16)
[2016-11-18] MEDS ORDERED: KLOR-CON M2020 MEQ PO (13:16)
[2016-11-18] MEDS ORDERED: SPIRO25 PO (13:16)
[2016-11-18] MEDS ORDERED: APRES10B PO (13:16)
[2016-11-18] MEDS ORDERED: HALF81 PO (13:17)
[2016-11-18] MEDS ORDERED: LIPITOR10 PO (13:18)
[2016-11-22] MEDS ORDERED: LEVOTHYROXIN50 MCG PO (13:16)
[2016-11-22] MEDS ORDERED: VIBRATAB100 MG PO (13:20)
[2016-12-29] MEDS ORDERED: IMDUR30 PO (10:59)
[2017-01-02] MEDS ORDERED: BUM2 PO (10:21)
[2017-01-02] MEDS ORDERED: COREG6 PO (10:22)
[2017-01-02] MEDS ORDERED: FOLIC PO (10:24)
[2017-01-02] MEDS ORDERED: B1100 PO (10:25)
== END 2016-07-26 11:34 | disposition home or self-care (01) | DRG 291 ==
LOC: ER 23:02 → 5NO 23:59
PROVIDERS: Hospitalist; Internal Medicine; Internal Medicine Cardiovascular Disease; Nurse Practitioner Acute Care
DX: I13.0 Hypertensive heart and chronic kidney disease with heart failure and stage 1 through stage 4 chronic kidney disease, or unspecified chronic kidney disease (principal); I50.23 Acute on chronic systolic (congestive) heart failure; D61.818 Other pancytopenia; N18.3 Chronic kidney disease, stage 3 (moderate); I48.2 Chronic atrial fibrillation; E03.9 Hypothyroidism, unspecified; I83.90 Asymptomatic varicose veins of unspecified lower extremity; I69.90 Unspecified sequelae of unspecified cerebrovascular disease; E83.42 Hypomagnesemia; Z88.8 Allergy status to other drugs, medicaments and biological substances; Z79.82 Long term (current) use of aspirin; Z79.899 Other long term (current) drug therapy; Z91.14 Patient's other noncompliance with medication regimen
CPT/HCPCS: 36415; 36600; 71010; 71020; 76705; 80048; 80053; 81001; 82247; 82248; 82805; 83010; 83615; 83735; 83880; 84132; 84145; 84443; 84484; 85025; 85045; 85610; 85730; 86850; 86900; 86901; 86920; 87086; 93005; 93970; 96374; 96376; 99285; A9270-GY; P9016; P9047

== ENCOUNTER 2016-08-22 06:37 | Inpatient (IN) | payer MEDICARE ==
--- NOTE | ~2016-08-22 | DS ---
Discharge Summary [facility] [address] [place]. [address] NAME: MAKSIM LOZANO : 60 STATUS : DIS IN PAT#: [id number] AGE: 55 ADM/REG DATE : 08/22/16 MR#: [id number] REPORT SERV DATE: 08/29/16 DICTATED BY: RADHA BENJAMIN DATE: 08/28/16 REPORT STATUS : Draft TRANSCRIBED BY: MODL DATE: 08/28/16 ADMISSION DATE: 08/22/2016 DISCHARGE DATE: 08/28/2016 DISCHARGE DIAGNOSES: 1. Status post right great saphenous vein stripping for refractory bleeding. 2. Pancytopenia, back to his normal number. 3. Chronic left and right heart failure. 4. Chronic kidney disease. 5. Atrial fibrillation. 6. History of peptic ulcer disease and gastrointestinal bleed, not on any anticoagulation. CONSULTATIONS: 1. Dr. Guerrero Ferrara. 2. Dr. Darci Valencia. HISTORY OF PRESENT ILLNESS: This is a 55-year-old -[place] male patient, who comes to the hospital with recurrent problem including heart failure and bleeding and anemia. He came to the hospital on August 22, 2016, with shortness of breath and also swelling in the leg and also he was scheduled to have venous hypertension with refluxing greater saphenous vein with multiple episodes of bleeding treatment with Dr. Ferrara. Please see dictated H and P. HOSPITAL COURSE: He was started on treatment for heart failure and eventually, he went to the procedure on 08/26/2016. After the procedure, he remained in stable condition, had 1 unit of transfusion. There was no evidence of bleeding, but he does have a chronic condition of pancytopenia. He tolerated all the treatment and stabilized. Also, seen by Dr. Valencia in order to make the goal of treatment and regarding his poor prognosis with multiple medical conditions. The patient remains in stable condition. He is still requesting full resuscitation on day of discharge. He was on Bumex 1 mg twice a day at home. He has been seen by CHF education team multiple times. Overall, had improvement and maximized inpatient benefit. The patient will be discharged home with continuing home care. DISCHARGE MEDICATIONS: Bumex 1 mg twice a day and hydrocodone 10 is given, and the other medications including carvedilol and spironolactone are not changed. He is also listed as having allergy to SHAUNA inhibitor. He is not on any treatment with SHAUNA inhibitor or ARB either. DISPOSITION: The patient is discharged to home in stable condition. Time spent more than 30 minutes in coordination and education. DICTATED BY: Radha Benjamin M.D. Discharge Summary [address] [address] NAME: MAKSIM LOZANO : 60 STATUS : DIS IN PAT#: [id number] AGE: 55 ADM/REG DATE : 08/22/16 MR#: [id number] REPORT SERV DATE: 08/29/16 DICTATED BY: RADHA BENJAMIN DATE: 08/28/16 REPORT STATUS : Draft TRANSCRIBED BY: MODL DATE: 08/28/16 JACLYN/ATA Radha Benjamin M.D. / [id number] CC: Raul Davidson M.D.
--- NOTE | ~2016-08-22 | HP ---
History And Physical [place] [id number] [facility] [place]. [address] NAME: MAKSIM PRINGLE : 60 STATUS : ADM Vinicio PAT#: [id number] AGE: 55 ADM/REG DATE : 08/22/16 MR#: [id number] REPORT SERV DATE: 08/22/16 DICTATED BY: REY BARBOZA DATE: 08/22/16 REPORT STATUS : Draft TRANSCRIBED BY: MODL DATE: 08/22/16 DATE OF ADMISSION: 08/22/2016 CHIEF COMPLAINT: Shortness of breath, dyspnea with exertion, and swelling in both his lower extremities. HISTORY OF PRESENT ILLNESS: This is a 55-year-old male with history of essential hypertension, CVA in the past, chronic atrial fibrillation, who presents to the emergency room at [facility] with the above-mentioned complaint. History is obtained from the patient, and reviewing data available on the [facility] system. According to Mr. Pringle, he had been in his usual state of health until about two weeks ago or so, when he started having swelling in both lower extremities up to his scrotum which has been slowly worsening. He also has worsening dyspnea with exertion, currently about class 3. Due to pain from the swelling in his lower extremities he finally decided to come to the emergency room to be evaluated. He was also scheduled to show up for preoperative testing for high ligation of the greater saphenous vein to be done by Dr. Guerrero Ferrara. He was supposed to report for preop testing tomorrow. In the emergency room, initial workup revealed he had volume overload, chronic kidney disease, and when he presented he was hypotensive as well. He did have symptomatic anemia possibly contributing to the dyspnea with exertion. Hospitalist Service was asked to admit him for further evaluation and treatment. At the time of my evaluation, he denied any chest pain or palpitations, although he did have severe shortness of breath with minimal exertion. He did not have any orthopnea at this point. He denied any cough, hemoptysis, night sweats, or weight loss. He has not had any recent falls or loss of consciousness. No history of fevers, chills, nausea, vomiting, diarrhea. He has not had any bleeding from anywhere. He did have some blowouts in the veins in his legs which he says bleeds profusely. No other history of recent travel or exposures other than those mentioned above. PAST MEDICAL HISTORY: His past medical history is significant for: 1. Chronic atrial fibrillation, rate controlled. 2. History of prior CVA. 3. Essential hypertension. SOCIAL HISTORY: He does not smoke. Has an occasional drink. Does not use any recreational drugs. 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 FAMILY HISTORY: Noncontributory. MEDICATIONS: His medications at home were reviewed by me in the chart today and reordered by me. REVIEW OF SYSTEMS: History And Physical [address] [address] NAME: MAKSIM PRINGLE : 60 STATUS : ADM Vinicio PAT#: [id number] AGE: 55 ADM/REG DATE : 08/22/16 MR#: [id number] REPORT SERV DATE: 08/22/16 DICTATED BY: REY BARBOZA DATE: 08/22/16 REPORT STATUS : Draft TRANSCRIBED BY: MODKenyetta DATE: 08/22/16 As in history of present illness. All other systems were reviewed in detail and are quite unremarkable. PHYSICAL EXAMINATION: GENERAL: This is a pleasant 55-year-old not in any acute distress. HEENT: His head is atraumatic and normocephalic. He is alert, awake, oriented to time, place, and person. Pupils are equal, reacting to light and accommodating. External ocular muscles are intact. Membranes are moist and pink. Sclerae are nonicteric. NECK: Supple with no jugular venous distention, lymphadenopathy, or thyromegaly. LUNGS: Clear to auscultation with no wheezes, rubs, or crackles. HEART: Heart sounds were regular with no murmurs, rubs, or gallops. ABDOMEN: Soft and nontender. Bowel sounds are present. EXTREMITIES: Bilateral pitting lower extremity edema extending up to the scrotum. NEUROLOGIC: Grossly intact. No focal sensory or motor deficits. Higher functions appeared intact. He was able to move all four extremities. VITAL SIGNS: Temperature of 98.1, pulse 86, respirations 18 a minute, and blood pressure was 95/55 upon arrival, at the time of my exam it was 102/89. Oxygen saturations were 99%, breathing 2 L of oxygen via nasal cannula. LABORATORY DATA: Reviewed on the [facility] system showed a sodium of 131, potassium 4.2, chloride 98, CO2 of 24, BUN was 24 with a creatinine of 1.69 which has been around his baseline recently. Blood glucose was 83. His troponin was 0.03 and BNP was 737.6. CBC showed a white blood cell count of 2600, hemoglobin was 7, hematocrit 21, and platelet count was 106,000. His prothrombin time was 14.9 with an INR of 1.2 today. Urinalysis was not performed today. Films of the chest x-ray were reviewed by me on the PACS today and interpreted by me. Today's films were compared to prior films available on the PACS as well. Per my interpretation, there is normal bony architecture with cardiomegaly. There is increased vascular congestion bilaterally. A 12-lead EKG done in emergency room was reviewed and interpreted by me. There is atrial fibrillation with a rate of 92. IMPRESSION: 1. Symptomatic anemia. 2. Volume overload. 3. Hypotension. 4. Chronic kidney disease. 5. Essential hypertension. 6. Chronic atrial fibrillation, rate controlled. 7. History of cerebrovascular accident. History And Physical [address] [address] NAME: MAKSIM PRINGLE : 60 STATUS : ADM Vinicio PAT#: [id number] AGE: 55 ADM/REG DATE : 08/22/16 MR#: [id number] REPORT SERV DATE: 08/22/16 DICTATED BY: REY BARBOZA DATE: 08/22/16 REPORT STATUS : Draft TRANSCRIBED BY: ATA DATE: 08/22/16 PLAN: We will admit Mr. Pringle to the Hospitalist Service with cardiac telemetry for a 24- hour observation period. We will type cross and transfuse one unit of packed red blood cells for his symptomatic anemia, and follow hemoglobin and hematocrit levels. We will also check his stool Hemoccult as well. We will go ahead and consult Dr. Guerrero Ferrara, who is planning on doing a high ligation of the greater saphenous vein on Mr. Pringle. Meanwhile, we will start him on IV diuretics cautiously, follow output and daily weights and get an echocardiogram as well. We will hold his antihypertensives now. Check chemistry and CBC in the morning. We will also place him on SCDs for DVT prophylaxis while he is here now. He is also wanting morphine for pain, but we will start him on Lortab orally and see how he does. I have discussed the above plans with the patient. His questions were answered and he is agreeable to the above recommendations. Hospitalist Service will be following him during his stay here. /ATA Rey Barboza M.D. / [id number] CC: Wyatt Baum M.D.
--- NOTE | ~2016-08-22 | OP ---
Record Of Operation [facility] [address] [place]. [address] NAME: MAKSIM LOZANO : 60 STATUS : ADM IN PAT#: [id number] AGE: 55 ADM/REG DATE : 08/22/16 MR#: [id number] REPORT SERV DATE: 08/26/16 DICTATED BY: GUERRERO FERRARA DATE: 08/26/16 REPORT STATUS : Draft TRANSCRIBED BY: MODL DATE: 08/26/16 DATE OF PROCEDURE: 08/26/2016 PREOPERATIVE DIAGNOSES: Venous hypertension with a refluxing greater saphenous vein and multiple episodes of bleeding of varicosity of the medial thigh on the right. POSTOPERATIVE DIAGNOSES: Venous hypertension with a refluxing greater saphenous vein and multiple episodes of bleeding of varicosity of the medial thigh on the right. PROCEDURES: Greater saphenous vein ligation with stripping of the medial thigh vein. SURGEON: Guerrero Ferrara M.D. SWITCH OPERATOR: Jil. ANESTHESIA: General. COMPLICATIONS: None. BLOOD LOSS: 500 mL. HISTORY: The patient is a 55-year-old male with a history of venous hypertension and multiple bleeding episodes of varicosity on his right medial thigh. Ultrasound showed a refluxing greater saphenous vein to this level, which is the likely etiology. It was felt he would benefit from interruption of this vein to treat his recurrent bleeding. This was discussed with the patient in detail, who expressed understanding and desire to proceed. DESCRIPTION OF PROCEDURE: The patient was taken to the operating room and placed in the supine position. He was given general anesthesia without complication. Right leg was prepped and draped in sterile fashion. Ultrasound confirmed a saphenous vein traveling from the groin to the thigh including the area of the varicosity. An incision was created transversely in the groin, dissection was performed to identify the greater saphenous vein. This was dissected as proximal as possible. Multiple branches were ligated with silk ties and divided. The saphenofemoral junction was ligated proximally. A 15 blade was used to create a venotomy and the [place] stripper cord was then passed distally and passed to the level of the bleeding varicosity on the medial thigh. This was palpated the skin, and incision created here. Dissection was performed and the stripper cord was grasped and end piece put on the stripper cord. The greater saphenous vein was then stripped between the two incisions. There was extensive bleeding at the distal incision and this was controlled with multiple 3-0 Prolene sutures including 3-0 Prolene horizontal mattress sutures on the skin. There was some bleeding up at the proximal side as well and the greater saphenous vein course after removal was oversewn with Prolene suture as well. Hemostasis was now achieved. The proximal incision was closed with 3-0 Vicryl subcutaneous suture, followed by 4-0 Monocryl subcuticular suture, and Dermabond dressing applied. The patient tolerated the procedure well. He was taken to the recovery and then to the ICU for postoperative care due to his cardiac issues. Record Of Operation [facility] [address] [facility] [place]. [address] NAME: MAKSIM LOZANO : 60 STATUS : ADM [facility]#: [id number] AGE: 55 ADM/REG DATE : 08/22/16 MR#: [id number] REPORT SERV DATE: 08/26/16 DICTATED BY: GUERRERO FERRARA DATE: 08/26/16 REPORT STATUS : Draft TRANSCRIBED BY: ATA DATE: 08/26/16 Melissa/ATA Guerrero Ferrara M.D. / [id number] CC: Raul Davidson M.D.
--- NOTE | ~2016-08-22 | CN ---
Consultation Report [facility] [address] [place]. [address] NAME: MAKSIM PRINGLE : 60 STATUS : ADM IN [facility]#: [id number] AGE: 55 ADM/REG DATE : 08/22/16 MR#: [id number] REPORT SERV DATE: 08/27/16 DICTATED BY: YASIR VALENCIA DATE: 08/27/16 REPORT STATUS : Draft TRANSCRIBED BY: MODL DATE: 08/27/16 PALLIATIVE CARE CONSULTATION DATE OF CONSULTATION: 08/22/2016 ALLERGIES: LISTED SHAUNA INHIBITORS, REACTION NOT SPECIFIED, BUT BASED UPON RECORDS SUSPICIOUS OF RENAL FUNCTION CHANGES. REASON FOR CONSULTATION: Clarification of goals of care, support and discussion of ongoing medical management of multiple medical problems. HISTORY OF PRESENT ILLNESS: Mr. Pringle, a 55-year-old gentleman, is admitted to the hospital on 08/22/2016. He has been followed over the last month or so for a venous bleeding site in his leg. He comes in now with shortness of breath, dyspnea on exertion, and bilateral lower extremities swelling. He has had a remote CVA, chronic atrial fibrillation, and remains in that rhythm. He has had a diagnosis of essential hypertension. According to the records and description in H and P, he was in his usual state of health until about two weeks ago where I would note that he is followed by the heart failure program. He has had detailed followup and instruction; however; he is unable to really articulate much in the way of his ongoing heart failure management strategies including sodium restrictions. He had been scheduled to have preoperative testing for ligation of the greater saphenous vein in his thigh, but came in because his legs were swollen and he was having trouble walking. Significant information at that time of admission includes an echocardiogram done here on 08/22/2016 showing an ejection fraction of approximately 35%, dilated left ventricle with global hypocontractility and enlarged right ventricle with severely decreased systolic function and moderate pulmonary hypertension, which by Doppler gives an estimated PA systolic pressure of approximately 56 mm. Since admission, he has been aggressively diuresed, his renal function is in fact improved and his shortness of breath is somewhat better. PAST MEDICAL HISTORY: As noted above. FAMILY HISTORY: Mother and father are . SOCIAL HISTORY: The patient does have a brother who is a spokesperson, Deonte. He is not a smoker at this time. Does not consume alcohol. Reports no consumption of illicit Consultation Report [facility] [address] [place]. [address] NAME: MAKSIM PRINGLE : 60 STATUS : ADM IN PAT#: [id number] AGE: 55 ADM/REG DATE : 08/22/16 MR#: [id number] REPORT SERV DATE: 08/27/16 DICTATED BY: YASIR VALENCIA DATE: 08/27/16 REPORT STATUS : Draft TRANSCRIBED BY: ATA DATE: 08/27/16 medications. He does live with his brother. REVIEW OF SYSTEMS: Remarkable for labile weight problems with ongoing dentition issues, refractory edema, and "trying to limit fluids and sodium" but not really very successful doing so. PHYSICAL EXAMINATION: On initial evaluation, VITAL SIGNS: his physical examination showed a blood pressure of 109/77, his pulse is 84 and regular, respiratory rate is 16, his temp is 97.6, his oxygen on room air saturation 97%. GENERAL: He is awake, alert, and pleasant, but appears to be somewhat slow and has limited comprehension of the overall medical problems he is facing. HEENT: Dentition is poor with multiple missing teeth. HEART: Shows irregularly irregular rhythm. LUNGS: His respirations show coarse clear breath sounds with slight prolongation of the expiratory phase. ABDOMEN: Benign. He has a dressing on the groin over the venous bleeding site. The remainder of the physical is as described in the H and P. LABORATORY DATA: Significant laboratory data shows somewhat increased creatinine around 1.5. His BNP levels are modestly elevated in the 700 range, and this is not inconsistent with going back almost three years. IMPRESSION/PLAN/DISCUSSION: Mr. Pringle is a 55-year-old fellow, we have had some difficulty accessing his brother. The patient himself has limited understanding of his condition, and at this point, is requesting full resuscitation, etc. Unfortunately, given his general level of debility, his refractory, biventricular heart failure issues, and his overall medical condition, this may not necessarily be an appropriate decision for him. He is unfortunately receiving very aggressive followup through the Heart failure team, but it appears to have mixed results. We will continue to involve the patient and hopefully his brother and ongoing conversations regarding discharge planning, desires, goals, and other medical issues. We appreciate the opportunity to see the patient. We will follow with you. PEBBLES/ATA Yasir Valencia M.D. / [id number] Consultation Report [address] [place] [address] NAME: MAKSIM PRINGLE : 60 STATUS : ADM IN PAT#: [id number] AGE: 55 ADM/REG DATE : 08/22/16 MR#: [id number] REPORT SERV DATE: 08/27/16 DICTATED BY: YASIR VALENCIA DATE: 08/27/16 REPORT STATUS : Draft TRANSCRIBED BY: ATA DATE: 08/27/16 CC: Raul Davidson M.D. UNKNOWN
[2016-08-22 04:07] LABS: BASOPHILS 0.8 %; BASOPHILS ABSOLUTE 0.02 10/3/uL (0.0-0.16); EOSINOPHILS 3.1 %; EOSINOPHILS ABSOLUTE 0.08 10/3/uL (0.0-0.53); IMMATURE GRANULOCYTES 0.4 %; IMMATURE GRANULOCYTES ABSOLUTE 0.01 10/3/uL (0.0-0.11); LYMPHOCYTES 18.5 %; LYMPHOCYTES ABSOLUTE 0.48 10/3/uL (0.67-4.30); MEAN CORPUS HGB CONC 33.3 g/dL (32.0-36.0); MEAN CORPUSCULAR HEMOGLOB 28.3 pg (26.0-34.0); MEAN PLATELET VOLUME 10.9 fL (9.2-13.0); MONOCYTES ABSOLUTE 0.39 10/3/uL (0.21-1.20); NEUTROPHILS 62.2 %; NEUTROPHILS ABSOLUTE 1.62 10/3/uL (2.02-8.40); PLATELET COUNT 106 10/3/uL (150-400); RBC DISTRIBUTION WIDTH 17.3 % (12.0-16.0); RED CELL COUNT 2.47 10/6/uL (4.7-6.1); WHITE BLOOD CELLS 2.6 10/3/uL (4.5-10.5)
[2016-08-22 04:08] LABS: MANUAL DIFF NO %
[2016-08-22 04:14] LABS: INTERNATIONAL NORMAL RATI 1.2 UNITS (-); PARTIAL THROMBO TIME 29.5 SEC (22.5-37.2); PROTIME (NOT ORD) 14.9 SEC (12.0-14.5)
[2016-08-22 04:25] LABS: CALCIUM, SERUM 8.6 MG/DL (8.5-10.4); CHEST PAIN PROFILE TAT 0 Hrs 22 Mins; CHLORIDE, SERUM 98 MMOL/L (96-112); CREATININE 1.69 MG/DL (0.70-1.30); GFR AFRICAN AMERICAN 52 ML/MIN (>=60); GFR NON AFRICAN AMERICAN 45 ML/MIN (>=60); GLUCOSE, SERUM 83 MG/DL (60-99); POTASSIUM, SERUM 4.2 MMOL/L (3.5-5.3); SODIUM, SERUM 131 MMOL/L (135-148); TROPONIN I 0.03 NG/ML (<0.05)
[2016-08-22 04:27] LABS: BUN (BLOOD UREA NITROGEN) 24 MG/DL (6-23); CO2 (CARBON DIOXIDE) 24 MMOL/L (24-34)
[2016-08-22 10:09] LABS: BASOPHILS 0.7 %; BASOPHILS ABSOLUTE 0.02 10/3/uL (0.0-0.16); EOSINOPHILS 4.4 %; EOSINOPHILS ABSOLUTE 0.12 10/3/uL (0.0-0.53); HEMATOCRIT 21.5 % (40.0-51.0); HEMOGLOBIN 7.1 g/dL (13.6-17.8); LYMPHOCYTES 17.9 %; LYMPHOCYTES ABSOLUTE 0.49 10/3/uL (0.67-4.30); MEAN CORPUSCULAR HEMOGLOB 27.8 pg (26.0-34.0); MEAN CORPUSCULAR VOLUME 84.3 fL (80-100); MEAN PLATELET VOLUME 9.3 fL (9.2-13.0); MONOCYTES ABSOLUTE 0.33 10/3/uL (0.21-1.20); NEUTROPHILS ABSOLUTE 1.78 10/3/uL (2.02-8.40); PLATELET COUNT 127 10/3/uL (150-400); RBC DISTRIBUTION WIDTH 17.5 % (12.0-16.0); RED CELL COUNT 2.55 10/6/uL (4.7-6.1); WHITE BLOOD CELLS 2.7 10/3/uL (4.5-10.5)
[2016-08-22 10:10] LABS: MANUAL DIFF NO %
[2016-08-22 10:31] LABS: BUN (BLOOD UREA NITROGEN) 23 MG/DL (6-23); CALCIUM, SERUM 8.9 MG/DL (8.5-10.4); CHLORIDE, SERUM 98 MMOL/L (96-112); CO2 (CARBON DIOXIDE) 26 MMOL/L (24-34); CREATININE 1.49 MG/DL (0.70-1.30); GFR AFRICAN AMERICAN 60 ML/MIN (>=60); GFR NON AFRICAN AMERICAN 52 ML/MIN (>=60); GLUCOSE, SERUM 77 MG/DL (60-99); PHOSPHORUS, SERUM 3.5 MG/DL (2.5-4.5); POTASSIUM, SERUM 3.9 MMOL/L (3.5-5.3); SODIUM, SERUM 134 MMOL/L (135-148); TROPONIN I 0.03 NG/ML (<0.05)
[2016-08-23 07:02] LABS: BASOPHILS 0.5 %; BASOPHILS ABSOLUTE 0.02 10/3/uL (0.0-0.16); EOSINOPHILS 2.5 %; EOSINOPHILS ABSOLUTE 0.09 10/3/uL (0.0-0.53); HEMOGLOBIN 8.1 g/dL (13.6-17.8); IMMATURE GRANULOCYTES 0.3 %; IMMATURE GRANULOCYTES ABSOLUTE 0.01 10/3/uL (0.0-0.11); LYMPHOCYTES 9.6 %; LYMPHOCYTES ABSOLUTE 0.35 10/3/uL (0.67-4.30); MEAN CORPUS HGB CONC 31.9 g/dL (32.0-36.0); MEAN CORPUSCULAR HEMOGLOB 27.2 pg (26.0-34.0); MEAN CORPUSCULAR VOLUME 85.2 fL (80-100); MEAN PLATELET VOLUME 9.7 fL (9.2-13.0); MONOCYTES 12.6 %; MONOCYTES ABSOLUTE 0.46 10/3/uL (0.21-1.20); NEUTROPHILS 74.5 %; NEUTROPHILS ABSOLUTE 2.71 10/3/uL (2.02-8.40); PLATELET COUNT 132 10/3/uL (150-400); RBC DISTRIBUTION WIDTH 17.6 % (12.0-16.0); RED CELL COUNT 2.98 10/6/uL (4.7-6.1); WHITE BLOOD CELLS 3.6 10/3/uL (4.5-10.5)
[2016-08-23 07:04] LABS: HEMATOCRIT 25.4 % (40.0-51.0); MANUAL DIFF NO %
[2016-08-23 07:20] LABS: BUN (BLOOD UREA NITROGEN) 25 MG/DL (6-23); CALCIUM, SERUM 9.1 MG/DL (8.5-10.4); CHLORIDE, SERUM 99 MMOL/L (96-112); CREATININE 1.38 MG/DL (0.70-1.30); GFR AFRICAN AMERICAN 66 ML/MIN (>=60); GFR NON AFRICAN AMERICAN 57 ML/MIN (>=60); PHOSPHORUS, SERUM 3.7 MG/DL (2.5-4.5); POTASSIUM, SERUM 3.9 MMOL/L (3.5-5.3); SODIUM, SERUM 137 MMOL/L (135-148)
[2016-08-23 07:21] LABS: CO2 (CARBON DIOXIDE) 32 MMOL/L (24-34); GLUCOSE, SERUM 93 MG/DL (60-99)
[2016-08-24 07:47] LABS: BASOPHILS 0.2 %; BASOPHILS ABSOLUTE 0.01 10/3/uL (0.0-0.16); EOSINOPHILS 2.2 %; EOSINOPHILS ABSOLUTE 0.09 10/3/uL (0.0-0.53); HEMOGLOBIN 8.1 g/dL (13.6-17.8); IMMATURE GRANULOCYTES 0.2 %; IMMATURE GRANULOCYTES ABSOLUTE 0.01 10/3/uL (0.0-0.11); LYMPHOCYTES 10.4 %; LYMPHOCYTES ABSOLUTE 0.42 10/3/uL (0.67-4.30); MEAN CORPUS HGB CONC 32.4 g/dL (32.0-36.0); MEAN CORPUSCULAR HEMOGLOB 27.8 pg (26.0-34.0); MEAN CORPUSCULAR VOLUME 85.9 fL (80-100); MONOCYTES 12.2 %; MONOCYTES ABSOLUTE 0.49 10/3/uL (0.21-1.20); NEUTROPHILS 74.8 %; PLATELET COUNT 125 10/3/uL (150-400); RBC DISTRIBUTION WIDTH 17.6 % (12.0-16.0); RED CELL COUNT 2.91 10/6/uL (4.7-6.1)
[2016-08-24 07:51] LABS: MANUAL DIFF NO %
[2016-08-24 08:04] LABS: BUN (BLOOD UREA NITROGEN) 23 MG/DL (6-23); CALCIUM, SERUM 9.3 MG/DL (8.5-10.4); CHLORIDE, SERUM 99 MMOL/L (96-112); CO2 (CARBON DIOXIDE) 29 MMOL/L (24-34); CREATININE 1.16 MG/DL (0.70-1.30); GFR AFRICAN AMERICAN 82 ML/MIN (>=60); GFR NON AFRICAN AMERICAN 71 ML/MIN (>=60); GLUCOSE, SERUM 85 MG/DL (60-99); POTASSIUM, SERUM 3.5 MMOL/L (3.5-5.3); SODIUM, SERUM 137 MMOL/L (135-148)
[2016-08-25 06:08] LABS: BASOPHILS 0.2 %; BASOPHILS ABSOLUTE 0.01 10/3/uL (0.0-0.16); EOSINOPHILS ABSOLUTE 0.08 10/3/uL (0.0-0.53); HEMATOCRIT 23.9 % (40.0-51.0); HEMOGLOBIN 7.8 g/dL (13.6-17.8); IMMATURE GRANULOCYTES 0.2 %; IMMATURE GRANULOCYTES ABSOLUTE 0.01 10/3/uL (0.0-0.11); LYMPHOCYTES 13.3 %; LYMPHOCYTES ABSOLUTE 0.54 10/3/uL (0.67-4.30); MANUAL DIFF NO %; MEAN CORPUS HGB CONC 32.6 g/dL (32.0-36.0); MEAN CORPUSCULAR HEMOGLOB 27.7 pg (26.0-34.0); MEAN CORPUSCULAR VOLUME 84.8 fL (80-100); MEAN PLATELET VOLUME 11.7 fL (9.2-13.0); MONOCYTES 9.9 %; NEUTROPHILS 74.4 %; NEUTROPHILS ABSOLUTE 3.01 10/3/uL (2.02-8.40); PLATELET COUNT 182 10/3/uL (150-400); RBC DISTRIBUTION WIDTH 18.1 % (12.0-16.0); RED CELL COUNT 2.82 10/6/uL (4.7-6.1); WHITE BLOOD CELLS 4.1 10/3/uL (4.5-10.5)
[2016-08-25 08:14] LABS: BUN (BLOOD UREA NITROGEN) 22 MG/DL (6-23); CALCIUM, SERUM 9.2 MG/DL (8.5-10.4); CHLORIDE, SERUM 101 MMOL/L (96-112); CO2 (CARBON DIOXIDE) 31 MMOL/L (24-34); CREATININE 1.16 MG/DL (0.70-1.30); GFR AFRICAN AMERICAN 82 ML/MIN (>=60); GFR NON AFRICAN AMERICAN 71 ML/MIN (>=60); GLUCOSE, SERUM 87 MG/DL (60-99); POTASSIUM, SERUM 3.4 MMOL/L (3.5-5.3); SODIUM, SERUM 138 MMOL/L (135-148)
[2016-08-25 14:14] LABS: FERRITIN 47 NG/ML (26-388); FOLATE 14.5 NG/ML (>5.2); IRON BINDING CAPACITY 342 MCG/DL (250-450); IRON, SERUM 19 MCG/DL (35-150)
[2016-08-26 04:58] LABS: BASOPHILS 0.2 %; BASOPHILS ABSOLUTE 0.01 10/3/uL (0.0-0.16); EOSINOPHILS 2.4 %; HEMATOCRIT 23.7 % (40.0-51.0); HEMOGLOBIN 7.6 g/dL (13.6-17.8); IMMATURE GRANULOCYTES 0.2 %; IMMATURE GRANULOCYTES ABSOLUTE 0.01 10/3/uL (0.0-0.11); LYMPHOCYTES 16.4 %; LYMPHOCYTES ABSOLUTE 0.69 10/3/uL (0.67-4.30); MEAN CORPUS HGB CONC 32.1 g/dL (32.0-36.0); MEAN CORPUSCULAR HEMOGLOB 27.3 pg (26.0-34.0); MEAN CORPUSCULAR VOLUME 85.3 fL (80-100); MEAN PLATELET VOLUME 9.6 fL (9.2-13.0); MONOCYTES 11.4 %; MONOCYTES ABSOLUTE 0.48 10/3/uL (0.21-1.20); NEUTROPHILS 69.4 %; NEUTROPHILS ABSOLUTE 2.91 10/3/uL (2.02-8.40); PLATELET COUNT 143 10/3/uL (150-400); RBC DISTRIBUTION WIDTH 17.8 % (12.0-16.0); RED CELL COUNT 2.78 10/6/uL (4.7-6.1); WHITE BLOOD CELLS 4.2 10/3/uL (4.5-10.5)
[2016-08-26 05:00] LABS: MANUAL DIFF NO %
[2016-08-26 05:09] LABS: CALCIUM, SERUM 8.8 MG/DL (8.5-10.4); CHLORIDE, SERUM 104 MMOL/L (96-112); CO2 (CARBON DIOXIDE) 29 MMOL/L (24-34); CREATININE 1.18 MG/DL (0.70-1.30); GFR AFRICAN AMERICAN 80 ML/MIN (>=60); GFR NON AFRICAN AMERICAN 69 ML/MIN (>=60); GLUCOSE, SERUM 85 MG/DL (60-99); POTASSIUM, SERUM 3.2 MMOL/L (3.5-5.3); SODIUM, SERUM 132 MMOL/L (135-148)
[2016-08-26 05:10] LABS: BUN (BLOOD UREA NITROGEN) 26 MG/DL (6-23)
[2016-08-26 20:23] LABS: HEMATOCRIT 23.3 % (40.0-51.0); HEMOGLOBIN 7.5 g/dL (13.6-17.8)
[2016-08-27 03:42] LABS: BASOPHILS 0.5 %; BASOPHILS ABSOLUTE 0.02 10/3/uL (0.0-0.16); EOSINOPHILS 2.5 %; HEMATOCRIT 21.6 % (40.0-51.0); IMMATURE GRANULOCYTES 0.2 %; IMMATURE GRANULOCYTES ABSOLUTE 0.01 10/3/uL (0.0-0.11); LYMPHOCYTES 12.8 %; LYMPHOCYTES ABSOLUTE 0.52 10/3/uL (0.67-4.30); MEAN CORPUS HGB CONC 32.4 g/dL (32.0-36.0); MEAN CORPUSCULAR HEMOGLOB 27.7 pg (26.0-34.0); MEAN CORPUSCULAR VOLUME 85.4 fL (80-100); MEAN PLATELET VOLUME 9.7 fL (9.2-13.0); MONOCYTES 11.3 %; MONOCYTES ABSOLUTE 0.46 10/3/uL (0.21-1.20); NEUTROPHILS 72.7 %; NEUTROPHILS ABSOLUTE 2.95 10/3/uL (2.02-8.40); PLATELET COUNT 130 10/3/uL (150-400); RBC DISTRIBUTION WIDTH 17.9 % (12.0-16.0); RED CELL COUNT 2.53 10/6/uL (4.7-6.1); WHITE BLOOD CELLS 4.1 10/3/uL (4.5-10.5)
[2016-08-27 03:43] LABS: MANUAL DIFF NO %
[2016-08-27 03:53] LABS: BUN (BLOOD UREA NITROGEN) 27 MG/DL (6-23); CALCIUM, SERUM 8.4 MG/DL (8.5-10.4); CHLORIDE, SERUM 101 MMOL/L (96-112); CO2 (CARBON DIOXIDE) 29 MMOL/L (24-34); GFR AFRICAN AMERICAN 78 ML/MIN (>=60); GFR NON AFRICAN AMERICAN 68 ML/MIN (>=60); GLUCOSE, SERUM 98 MG/DL (60-99); POTASSIUM, SERUM 3.3 MMOL/L (3.5-5.3)
[2016-08-27 03:55] LABS: SODIUM, SERUM 140 MMOL/L (135-148)
[2016-08-28 06:09] LABS: BASOPHILS 0.3 %; BASOPHILS ABSOLUTE 0.01 10/3/uL (0.0-0.16); EOSINOPHILS 2.1 %; EOSINOPHILS ABSOLUTE 0.08 10/3/uL (0.0-0.53); HEMATOCRIT 24.7 % (40.0-51.0); HEMOGLOBIN 8.1 g/dL (13.6-17.8); IMMATURE GRANULOCYTES 0.3 %; IMMATURE GRANULOCYTES ABSOLUTE 0.01 10/3/uL (0.0-0.11); LYMPHOCYTES ABSOLUTE 0.62 10/3/uL (0.67-4.30); MANUAL DIFF NO %; MEAN CORPUS HGB CONC 32.8 g/dL (32.0-36.0); MEAN CORPUSCULAR HEMOGLOB 28.1 pg (26.0-34.0); MEAN CORPUSCULAR VOLUME 85.8 fL (80-100); MEAN PLATELET VOLUME 9.9 fL (9.2-13.0); MONOCYTES 12.1 %; MONOCYTES ABSOLUTE 0.47 10/3/uL (0.21-1.20); NEUTROPHILS 69.2 %; NEUTROPHILS ABSOLUTE 2.69 10/3/uL (2.02-8.40); PLATELET COUNT 136 10/3/uL (150-400); RBC DISTRIBUTION WIDTH 17.8 % (12.0-16.0); RED CELL COUNT 2.88 10/6/uL (4.7-6.1); WHITE BLOOD CELLS 3.9 10/3/uL (4.5-10.5)
[2016-08-28 06:17] LABS: BUN (BLOOD UREA NITROGEN) 30 MG/DL (6-23); CALCIUM, SERUM 8.8 MG/DL (8.5-10.4); CHLORIDE, SERUM 98 MMOL/L (96-112); CO2 (CARBON DIOXIDE) 28 MMOL/L (24-34); CREATININE 1.38 MG/DL (0.70-1.30); GFR AFRICAN AMERICAN 66 ML/MIN (>=60); GFR NON AFRICAN AMERICAN 57 ML/MIN (>=60); GLUCOSE, SERUM 86 MG/DL (60-99); POTASSIUM, SERUM 3.3 MMOL/L (3.5-5.3); SODIUM, SERUM 135 MMOL/L (135-148)
[2016-08-28] MEDS ORDERED: NORCO1 TAB PO (09:33)
[2016-10-27] MEDS ORDERED: HALF81 PO (15:44)
[2016-10-27] MEDS ORDERED: BUM1 PO (15:45)
[2016-10-27] MEDS ORDERED: SYN.025B PO (15:45)
[2016-10-27] MEDS ORDERED: Z100 PO (15:45)
[2016-10-27] MEDS ORDERED: NORCO1 TAB PO (15:46)
[2016-11-04] MEDS ORDERED: CORDARONE PO (13:09)
[2016-11-04] MEDS ORDERED: COREG3 PO (13:10)
[2016-11-04] MEDS ORDERED: IMDUR30 PO (13:11)
[2016-11-04] MEDS ORDERED: ENULOSE PO (13:13)
[2016-11-04] MEDS ORDERED: KLOR-CON20 MEQ PO (13:14)
[2016-11-04] MEDS ORDERED: SPIRO25 PO (13:15)
[2016-11-04] MEDS ORDERED: APRES10B PO (13:15)
[2016-11-18] MEDS ORDERED: BUM1 PO (13:14)
[2016-11-18] MEDS ORDERED: Z100 PO (13:14)
[2016-11-18] MEDS ORDERED: COREG3 PO (13:15)
[2016-11-18] MEDS ORDERED: LEVOTHYROXIN25 MCG PO (13:15)
[2016-11-18] MEDS ORDERED: CORDARONE PO (13:15)
[2016-11-18] MEDS ORDERED: APRES10B PO (13:16)
[2016-11-18] MEDS ORDERED: IMDUR30 PO (13:16)
[2016-11-18] MEDS ORDERED: KLOR-CON M2020 MEQ PO (13:16)
[2016-11-18] MEDS ORDERED: SPIRO25 PO (13:16)
[2016-11-18] MEDS ORDERED: HALF81 PO (13:17)
[2016-11-18] MEDS ORDERED: LIPITOR10 PO (13:18)
[2016-11-22] MEDS ORDERED: LEVOTHYROXIN50 MCG PO (13:16)
[2016-11-22] MEDS ORDERED: VIBRATAB100 MG PO (13:20)
[2016-12-29] MEDS ORDERED: IMDUR30 PO (10:59)
[2017-01-02] MEDS ORDERED: BUM2 PO (10:21)
[2017-01-02] MEDS ORDERED: COREG6 PO (10:22)
[2017-01-02] MEDS ORDERED: FOLIC PO (10:24)
[2017-01-02] MEDS ORDERED: B1100 PO (10:25)
[2017-01-07] MEDS ORDERED: BUM2 PO (09:11)
[2017-01-07] MEDS ORDERED: VITAMIN B-1 PO (09:12)
[2017-01-07] MEDS ORDERED: COREG6 PO (09:12)
[2017-01-07] MEDS ORDERED: SYN.05 PO (09:13)
[2017-01-07] MEDS ORDERED: [UNRECOGNIZED DRUG - CODE] PO (09:13)
[2017-01-07] MEDS ORDERED: HYDROCORT5 MG PO (09:14)
[2017-01-07] MEDS ORDERED: ZONEGRAN PO (09:15)
[2017-01-07] MEDS ORDERED: Z100 PO (09:17)
[2017-01-07] MEDS ORDERED: ASAB PO (09:18)
[2017-01-07] MEDS ORDERED: CORDARONE PO (09:18)
== END 2016-08-28 15:11 | disposition home or self-care (01) | DRG 263 ==
LOC: ER 06:37 → 6NO 06:42 → 7NO 06:51 → CVICU 08-26 18:31 → 2SO 08-27 10:47
PROVIDERS: Internal Medicine; Internal Medicine Pulmonary Disease; Specialist; Surgery
PROC: 30233N1 Transfusion of Nonautologous Red Blood Cells into Peripheral Vein, Percutaneous Approach (ICD-10-PCS; 2016-08-26)
PROC: 06DP0ZZ Extraction of Right Saphenous Vein, Open Approach (ICD-10-PCS; principal; 2016-08-26 14:15)
DX: I83.891 Varicose veins of right lower extremity with other complications (principal); I50.23 Acute on chronic systolic (congestive) heart failure; N17.9 Acute kidney failure, unspecified; D61.818 Other pancytopenia; N18.3 Chronic kidney disease, stage 3 (moderate); I27.2 Other secondary pulmonary hypertension; I13.0 Hypertensive heart and chronic kidney disease with heart failure and stage 1 through stage 4 chronic kidney disease, or unspecified chronic kidney disease; E87.70 Fluid overload, unspecified; Z51.5 Encounter for palliative care; E87.6 Hypokalemia; D64.9 Anemia, unspecified; D72.819 Decreased white blood cell count, unspecified; I48.2 Chronic atrial fibrillation; I34.0 Nonrheumatic mitral (valve) insufficiency; I87.2 Venous insufficiency (chronic) (peripheral); I25.5 Ischemic cardiomyopathy; R21 Rash and other nonspecific skin eruption; Z86.73 Personal history of transient ischemic attack (TIA), and cerebral infarction without residual deficits; I69.398 Other sequelae of cerebral infarction; Z87.891 Personal history of nicotine dependence
CPT/HCPCS: 36415; 71010; 80048; 82272; 82330; 82607; 82728; 82746; 82803; 82947; 83540; 83550; 83735; 83880; 84100; 84132; 84295; 84443; 84484; 85014; 85018; 85025; 85610; 85730; 86850; 86900; 86901; 86920; 88304; 93005; 93306; 94640; 99285; A9270-GY; C1751; C1769; J0690; J2250; J2270; J2370; J2710; J3010; P9016

== ENCOUNTER 2016-09-08 20:04 | Emergency (ER) | payer MEDICARE ==
[2016-09-08 20:17] LABS: BASOPHILS 0.2 %; BASOPHILS ABSOLUTE 0.01 10/3/uL (0.0-0.16); EOSINOPHILS ABSOLUTE 0.09 10/3/uL (0.0-0.53); HEMATOCRIT 23.7 % (40.0-51.0); HEMOGLOBIN 7.8 g/dL (13.6-17.8); IMMATURE GRANULOCYTES 0.2 %; IMMATURE GRANULOCYTES ABSOLUTE 0.01 10/3/uL (0.0-0.11); LYMPHOCYTES 11.3 %; LYMPHOCYTES ABSOLUTE 0.51 10/3/uL (0.67-4.30); MEAN CORPUS HGB CONC 32.9 g/dL (32.0-36.0); MEAN CORPUSCULAR HEMOGLOB 27.5 pg (26.0-34.0); MEAN CORPUSCULAR VOLUME 83.5 fL (80-100); MEAN PLATELET VOLUME 8.8 fL (9.2-13.0); MONOCYTES 10.4 %; MONOCYTES ABSOLUTE 0.47 10/3/uL (0.21-1.20); NEUTROPHILS 75.9 %; NEUTROPHILS ABSOLUTE 3.44 10/3/uL (2.02-8.40); RBC DISTRIBUTION WIDTH 18.5 % (12.0-16.0); RED CELL COUNT 2.84 10/6/uL (4.7-6.1); WHITE BLOOD CELLS 4.5 10/3/uL (4.5-10.5)
[2016-09-08 20:21] LABS: MANUAL DIFF NO %; PLATELET COUNT 209 10/3/uL (150-400)
[2016-09-08 20:33] LABS: A/G RATIO 0.6 (0.7-1.9); ALBUMIN 2.9 G/DL (3.5-5.0); ALKALINE PHOSPHATASE 191 U/L (45-117); BUN (BLOOD UREA NITROGEN) 35 MG/DL (6-23); CALCIUM, SERUM 8.8 MG/DL (8.5-10.4); CHLORIDE, SERUM 100 MMOL/L (96-112); CO2 (CARBON DIOXIDE) 25 MMOL/L (24-34); CREATININE 1.29 MG/DL (0.70-1.30); GFR AFRICAN AMERICAN 72 ML/MIN (>=60); GFR NON AFRICAN AMERICAN 62 ML/MIN (>=60); GLOBULIN 4.5 G/DL (2.5-4.1); GLUCOSE, SERUM 80 MG/DL (60-99); POTASSIUM, SERUM 4.3 MMOL/L (3.5-5.3); SGOT(AST) 22 U/L (5-40); SGPT(ALT) 16 U/L (5-65); SODIUM, SERUM 136 MMOL/L (135-148); TOTAL BILIRUBIN 1.4 MG/DL (0-1.2); TOTAL PROTEIN 7.4 G/DL (6.0-8.5)
[2016-10-27] MEDS ORDERED: HALF81 PO (15:44)
[2016-10-27] MEDS ORDERED: SYN.025B PO (15:45)
[2016-10-27] MEDS ORDERED: Z100 PO (15:45)
[2016-10-27] MEDS ORDERED: BUM1 PO (15:45)
[2016-10-27] MEDS ORDERED: NORCO1 TAB PO (15:46)
[2016-11-04] MEDS ORDERED: CORDARONE PO (13:09)
[2016-11-04] MEDS ORDERED: COREG3 PO (13:10)
[2016-11-04] MEDS ORDERED: IMDUR30 PO (13:11)
[2016-11-04] MEDS ORDERED: ENULOSE PO (13:13)
[2016-11-04] MEDS ORDERED: KLOR-CON20 MEQ PO (13:14)
[2016-11-04] MEDS ORDERED: APRES10B PO (13:15)
[2016-11-04] MEDS ORDERED: SPIRO25 PO (13:15)
[2016-11-18] MEDS ORDERED: BUM1 PO (13:14)
[2016-11-18] MEDS ORDERED: Z100 PO (13:14)
[2016-11-18] MEDS ORDERED: COREG3 PO (13:15)
[2016-11-18] MEDS ORDERED: LEVOTHYROXIN25 MCG PO (13:15)
[2016-11-18] MEDS ORDERED: CORDARONE PO (13:15)
[2016-11-18] MEDS ORDERED: IMDUR30 PO (13:16)
[2016-11-18] MEDS ORDERED: KLOR-CON M2020 MEQ PO (13:16)
[2016-11-18] MEDS ORDERED: SPIRO25 PO (13:16)
[2016-11-18] MEDS ORDERED: APRES10B PO (13:16)
[2016-11-18] MEDS ORDERED: HALF81 PO (13:17)
[2016-11-18] MEDS ORDERED: LIPITOR10 PO (13:18)
[2016-11-22] MEDS ORDERED: LEVOTHYROXIN50 MCG PO (13:16)
[2016-11-22] MEDS ORDERED: VIBRATAB100 MG PO (13:20)
[2016-12-29] MEDS ORDERED: IMDUR30 PO (10:59)
[2017-01-02] MEDS ORDERED: BUM2 PO (10:21)
[2017-01-02] MEDS ORDERED: COREG6 PO (10:22)
[2017-01-02] MEDS ORDERED: FOLIC PO (10:24)
[2017-01-02] MEDS ORDERED: B1100 PO (10:25)
[2017-01-07] MEDS ORDERED: BUM2 PO (09:11)
[2017-01-07] MEDS ORDERED: COREG6 PO (09:12)
[2017-01-07] MEDS ORDERED: VITAMIN B-1 PO (09:12)
[2017-01-07] MEDS ORDERED: SYN.05 PO (09:13)
[2017-01-07] MEDS ORDERED: [UNRECOGNIZED DRUG - CODE] PO (09:13)
[2017-01-07] MEDS ORDERED: HYDROCORT5 MG PO (09:14)
[2017-01-07] MEDS ORDERED: ZONEGRAN PO (09:15)
[2017-01-07] MEDS ORDERED: Z100 PO (09:17)
[2017-01-07] MEDS ORDERED: ASAB PO (09:18)
[2017-01-07] MEDS ORDERED: CORDARONE PO (09:18)
== END 2016-09-08 22:27 | disposition home or self-care (01) ==
LOC: ER 20:04
PROVIDERS: Emergency Medicine
DX: R60.0 Localized edema (principal); G89.29 Other chronic pain; D64.9 Anemia, unspecified; D61.818 Other pancytopenia; I12.9 Hypertensive chronic kidney disease with stage 1 through stage 4 chronic kidney disease, or unspecified chronic kidney disease; N18.9 Chronic kidney disease, unspecified; Z86.73 Personal history of transient ischemic attack (TIA), and cerebral infarction without residual deficits; I48.91 Unspecified atrial fibrillation; Z88.8 Allergy status to other drugs, medicaments and biological substances; Z79.82 Long term (current) use of aspirin; Z79.899 Other long term (current) drug therapy
CPT/HCPCS: 71010; 80053; 85025; 93005; 96374; 96375; 99284; J2800

== ENCOUNTER 2016-09-13 10:28 | Inpatient (IN) | payer MEDICARE ==
--- NOTE | ~2016-09-13 | HP ---
History And Physical [address] [place]. [address] NAME: MAKSIM LOZANO : 60 STATUS : ADM Vinicio PAT#: [id number] AGE: 55 ADM/REG DATE : 09/13/16 MR#: [id number] REPORT SERV DATE: 09/13/16 DICTATED BY: ANASTASIA GÓMEZ DATE: 09/13/16 REPORT STATUS : Draft TRANSCRIBED BY: MODL DATE: 09/13/16 DATE OF ADMISSION: 09/13/2016 ATTENDING PHYSICIAN: Dr. Peter. REASON FOR ADMISSION: Atrial fibrillation with rapid ventricular response and congestive heart failure with volume overload and leg edema. HISTORY OF PRESENT ILLNESS: This is a 55-year-old black male, who was discharged from the hospital on 08/29/2016, by Dr. Radha Benjamin. He returns now back with increasing shortness of breath and a rapid heart rate. He took his carvedilol early this morning. He denies being out of medication. He was seen in the emergency room by Dr. Park. Dr. Park has described him as well known to the emergency room physicians in the past. The patient has indeed had multiple hospitalizations in the past with hospitalizations August 22, July 22, July 15, June 23. He was seen during the prior hospitalization by Dr. Valencia to discuss his poor prognosis. I again mentioned this to him with three hospitalizations down the last six months, a 50% 1 year mortality would be observed likely. He does not want to discuss end-of-life issues at this time and wants to defer discussion and decision on these issues. PAST MEDICAL HISTORY: Multiple hospitalizations in the past for congestive heart failure acute exacerbation. He does have pancytopenia and receives transfusion fairly regularly. His hematocrit today is 28%. He has chronic right and left heart failure. He was seen by Dr. Sams and has an appointment to see Dr. Sams next week as well. The patient has chronic kidney disease. He has been followed at [facility]. He had an echocardiogram last described in 2013 with ejection fraction 40% with biatrial dilation, moderate pulmonary hypertension, tricuspid regurgitation. HOME MEDICATIONS: His home medications include the followin. Spironolactone. 2. Carvedilol. 3. 81 mg aspirin. 4. Bumex. 5. Levothyroxine. SOCIAL HISTORY: He is not , he has never been . Lives with his brother in [place]. He takes alcohol occasionally. He does not use any cigarette use or abuse. 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 He does not attend latter day. FAMILY HISTORY: Two brothers and two sisters. No heart disease runs in the family with them previously. Diabetes, heart disease, and lymphedema run in the family. History And Physical [address] [address] NAME: MAKSIM LOZANO : 60 STATUS : ADM Vinicio PAT#: [id number] AGE: 55 ADM/REG DATE : 09/13/16 MR#: [id number] REPORT SERV DATE: 09/13/16 DICTATED BY: ANASTASIA GÓMEZ DATE: 09/13/16 REPORT STATUS : Draft TRANSCRIBED BY: ATA DATE: 09/13/16 REVIEW OF SYSTEMS: He has had ischemic cardiomyopathy with ejection fraction of 30% to 35% in the past, and this has been documented in previous histories and physicals. He denies any prior history of heart attack. He has a history of GI bleeding with previous anticoagulation, therefore anticoagulants considered to be contraindicated. He has been followed by Dr. Ledesma for the pancytopenia. He has had atrial fibrillation for some years, history of lymphedema, history of genital herpes, and nonsustained ventricular tachycardia, and pancreatitis in the past. SURGICAL HISTORY: Surgically he has had a Billroth II and vagotomy or Yony-en-Y jejunostomy. He has had several small bowel obstruction episodes and resection of bowels with gangrenous bowel resected in 2003. He has extensive adhesions. He has history of ventral hernia; abdominal wall dehiscence in the past; leg swelling and his primary complaint is pain in the thighs with swelling. He says that the swelling was never decreased in his thighs prior to discharge. He had a saphenous vein ligation on the right side by Dr. Guerrero Ferrara during the prior hospitalization but he has also had stasis changes and chronic edema of the left lower extremity as well. The remainder of the review of systems is negative. PHYSICAL EXAMINATION: GENERAL: A young black male, in moderate respiratory and painful distress. VITAL SIGNS: Blood pressure was 148/70 with a heart rate 102, respiratory rate 18, and afebrile. HEENT: EOMI. Sclerae clear. Conjunctivae pink. NECK: No bruit without any JVD. CHEST: Clear to A and P. HEART: Irregularly regular S1, S2 without murmur. ABDOMEN: Abdomen is firm with flank edema. There is no HSM. He has remarkable jugular venous distention at 6 degrees head elevation. His abdomen is firm. No landmarks are felt. CHEST: A few rales are heard and the elevated respiratory rate. EXTREMITIES: Have hard woody edema on the left side with multiple scars and pebbling appearance of the lower extremities with stasis changes. The right lower extremity has hard edema, but lacks the consistency of the left. NEUROLOGIC: He withdraws to plantar stimulation. He is able to stand. 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 He is tense and sitting forward, breathing high on the diaphragm with diaphragmatic breathing. SKIN: Stasis changes of the lower extremities. RECTAL: Exam was deferred. His IV has come out and he has lost approximately 100 mL of blood on the pillow case in the left antecubital fossa. A repeat IV is being attempted now. LABORATORY DATA: Sodium 131, potassium 4.9, creatinine 1.7, and BUN 15. Liver tests were normal. His albumin is 3.1, direct bilirubin is 0.8, alkaline phosphatase is 219, total bilirubin 1.5. TSH was elevated at 4.7. His BNP was 1126. Portable chest x-ray shows evidence of stable cardiomegaly, slight pulmonary vascular congestion, and mild atelectasis right lung base. Hemoglobin 8.8, hematocrit 27.5, white History And Physical [address] [address] NAME: MAKSIM LOZANO : 60 STATUS : ADM Vinicio PAT#: [id number] AGE: 55 ADM/REG DATE : 09/13/16 MR#: [id number] REPORT SERV DATE: 09/13/16 DICTATED BY: ANASTASIA GÓMEZ DATE: 09/13/16 REPORT STATUS : Draft TRANSCRIBED BY: MODKenyetta DATE: 09/13/16 count 5.5, platelets were 168,000, and INR 1.2. He had been in the emergency room on 09/08/2016 and 09/09/2016, as well. EKG shows atrial fibrillation with rapid ventricular response. Diffuse ST and T-wave changes, most prominent laterally. ASSESSMENT: 1. Atrial fibrillation with rapid ventricular response. We will add digoxin. 2. Congestive heart failure with systolic and diastolic dysfunction, right and left-sided heart failure. 3. Leg edema, left greater than right. 4. Elevated TSH. Consider hypothyroidism. We will start low-dose Synthroid in the morning. PLAN: Restart his medications. I will convert the Bumex to IV. Add digoxin at 0.[address] Sams who knows the patient and was to see him as an outpatient on Friday. ADDENDUM: Home medications identified as follows: 1. Zyloprim 100 mg p.o. b.i.d. 2. Aspirin 81 mg p.o. daily. 3. Bumex 2 mg p.o. b.i.d. 4. Carvedilol 6.25 p.o. b.i.d. 5. Levothyroxine 25 mcg p.o. q.a.m. 6. Spironolactone 25 mg p.o. every morning. MATTY/ATA Anastasia Gómez M.D. / [id number] CC: Daja Husain N.P. William Warren, M.D.
--- NOTE | ~2016-09-13 | CN ---
Consultation Report [facility] [address] [place]. [address] NAME: MAKSIM PRINGLE : 60 STATUS : ADM IN [facility]#: [id number] AGE: 55 ADM/REG DATE : 09/14/16 MR#: [id number] REPORT SERV DATE: 09/16/16 DICTATED BY: DATE: REPORT STATUS : Draft TRANSCRIBED BY: MODKenyetta DATE: 09/16/16 CONSULTATION DATE OF CONSULTATION: REASON FOR CONSULTATION: CKD. HISTORY OF PRESENT ILLNESS: Mr. Pringle is a 55-year-old black male with a history of CKD in the past and we have seen him for acute renal failure in the past as well. It sounds that he has been to our office on one occasion and that was in July. At that time, he was having trouble with increasing lower extremity edema. He is in the hospital at this time with shortness of breath and atrial fibrillation with RVR with CHF exacerbation with an EF of 30%. He also has moderate pulmonary hypertension. His creatinine is actually better than on arrival, it has gone from 1.7 down to 1.55. He has had problems with low blood pressure and blood pressure down in the 80s. He had been on dopamine drip which is being titrated off at this time. Blood pressure last was up to 102/73. He has already had 2 L of urine output today, If one look at the I's and O's over the last 48 hours, this is a significant improvement. He states his shortness of breath is better. Edema is improving. PAST MEDICAL HISTORY: Quite significant, CAD, CVA, atrial fibrillation, GI bleed, esophageal varices. He has had small bowel obstruction with resection, peripheral vascular disease, moderate pulmonary hypertension, pancytopenia. SOCIAL HISTORY: Significant alcohol use on almost daily basis. Lives with family. No tobacco use. FAMILY MEDICAL HISTORY: Diabetes, heart disease. He denies any kidney disease in the family. ALLERGIES: SHAUNA INHIBITOR. MEDICATIONS: At the time of this consultation. He is on a Lasix drip, allopurinol, aspirin, Coreg, digoxin, Lovenox, hydralazine, levothyroxine, magnesium, potassium. REVIEW OF SYSTEMS: 12-point review of systems obtained and negative with the exception that in HPI. PHYSICAL EXAMINATION: VITAL SIGNS: Temp 98.7, blood pressure 102/73, pulse in the 80s, respiratory rate 20, O2 saturation is 95%. GENERAL: This is a chronically ill-appearing black male who is awake, alert, oriented, in no acute distress. Answers questions appropriately. HEENT: Normocephalic, atraumatic. Conjunctivae clear. Sclerae looks icteric to me. Oral mucosa is dry. Consultation Report [facility] [id number] [place]. [address] NAME: MAKSIM PRINGLE : 60 STATUS : ADM IN [facility]#: [id number] AGE: 55 ADM/REG DATE : 09/14/16 MR#: [id number] REPORT SERV DATE: 09/16/16 DICTATED BY: DATE: REPORT STATUS : Draft TRANSCRIBED BY: MODL DATE: 09/16/16 NECK: Supple. Carotids are brisk. Neck veins flat. No lymphadenopathy. RESPIRATIONS: Even and unlabored with crackles bilaterally. HEART: Rate is regular. I did not hear any murmur, rub, or gallop. ABDOMEN: Soft, nontender. Bowel sounds active. No masses. No hepatosplenomegaly. No bruits. No CVA tenderness. BACK: Within normal limits. EXTREMITIES: With tight edema bilaterally. SKIN: No unusual rash or skin lesions. NEURO: No focal deficits. Mood and affect, pleasant and appropriate. PERTINENT LABS AND X-RAYS: WBCs 4.8, H and H 8 and 26, platelets 114,000. Sodium 132, potassium 4.2, chloride 97, CO2 of 30, BUN of 24, creatinine 1.5, calcium 9.1, magnesium of 2. IMPRESSION: 1. Chronic kidney disease, stage III with a last baseline around 1.3. He was not been to our office in over a year. 2. Acute exacerbation of congestive heart failure, probable cardiorenal syndrome related to such. 3. Moderate pulmonary hypertension. 4. Hypotension. 5. Atrial fibrillation. 6. Anemia. 7. Alcohol abuse. PLAN: Creatinine is actually better and he is having significant increase in urine output which suggest better renal perfusion today. Hope to see creatinine continue to improve. Blood pressures are still marginal. Agree with stopping of hydralazine and would actually hold Coreg if his blood pressure does not improve. Follow labs, I's and O's. If blood pressure remains low and he has decompensation of renal failure, he would not be a dialysis candidate with the hypotension. We will see how things go over in the next 24 to 48 hours. If he keeps his blood pressure up and has better renal perfusion in urine output, hopefully we will see the kidney function continue to improve. We will follow along with you. Thank you for the consultation. TONY MARINO Martinez / [id number] Consultation Report [facility] [id number] [facility] [place]. [address] NAME: MAKSIM PRINGLE : 60 STATUS : ADM IN [facility]#: [id number] AGE: 55 ADM/REG DATE : 09/14/16 MR#: [id number] REPORT SERV DATE: 09/16/16 DICTATED BY: DATE: REPORT STATUS : Draft TRANSCRIBED BY: ATA DATE: 09/16/16 CC: Braden Ayala M.D.
--- NOTE | ~2016-09-13 | CN ---
Consultation Report [facility] [address] [place]. [address] NAME: MAKSIM PRINGLE : 60 STATUS : ADM IN [facility]#: [id number] AGE: 55 ADM/REG DATE : 09/14/16 MR#: [id number] REPORT SERV DATE: 09/16/16 DICTATED BY: BLAZE JHAVERI DATE: 09/16/16 REPORT STATUS : Draft TRANSCRIBED BY: MODL DATE: 09/16/16 CONSULTATION DATE OF CONSULTATION: 09/16/2016 REASON FOR CONSULTATION: Hypotension, decompensated heart failure, atrial fibrillation. HISTORY OF PRESENT ILLNESS: Mr. Pringle is a pleasant 55-year-old gentleman with an extensive medical history including chronic atrial fibrillation, nonischemic cardiomyopathy (LVEF 30% to 35%), CKD, pancytopenia requiring blood transfusions, history of severe GI bleed, status post Yony-en-Y partial gastrectomy for gastric ulcer, severe bilateral venous insufficiency, and CVA as well as history of bleeding varicose veins, who presented to [facility] on 09/13/2016 with symptoms of worsening dyspnea as well as lower extremity swelling, found to be in decompensated heart failure. During his admission here over the past few days, he has been diuresed effectively with Bumex as well as started on a few new medications including digoxin, diltiazem, hydralazine, and morphine p.r.n. In this setting, he has developed interval hypotension with blood pressures down to 80s over 50s that is largely asymptomatic per my clinical assessment. He otherwise has no new complaints. ALLERGIES: SHAUNA INHIBITORS. HOME MEDICATIONS: 1. Allopurinol. 2. Aspirin 81 mg p.o. daily. 3. Bumex 2 mg p.o. b.i.d. 4. Coreg 6.25 mg p.o. b.i.d. 5. Synthroid. 6. Aldactone 25 mg p.o. q.a.m. FAMILY HISTORY: Noncontributory for premature cardiovascular disease. SOCIAL HISTORY: The patient lives at home with his brother and nephew. He admits to abusing alcohol (two to three cans of beer, and two to three shots of liquor per night, on most nights). He denies use of illicit drugs. He does not smoke tobacco. REVIEW OF SYSTEMS: As above, all systems otherwise negative. PHYSICAL EXAMINATION: VITAL SIGNS: Blood pressure 80/50 to 100/70, pulse 80s atrial fibrillation, temperature 98.2 T-max, afebrile. GENERAL: Well developed, well nourished, no acute distress. NEURO: Awake, alert and oriented x3; no focal deficits, appropriate mood. HEAD AND NECK: Normocephalic, atraumatic. JVP approximately 10 cm of water. Consultation Report [address] [place]. [address] NAME: MAKSIM PRINGLE : 60 STATUS : ADM IN [facility]#: [id number] AGE: 55 ADM/REG DATE : 09/14/16 MR#: [id number] REPORT SERV DATE: 09/16/16 DICTATED BY: BLAZE JHAVERI DATE: 09/16/16 REPORT STATUS : Draft TRANSCRIBED BY: ATA DATE: 09/16/16 NECK: No JVD, no carotid bruit. RESPIRATORY: Normal work of breathing. Trace rales bilaterally with diminished breath sounds at the bases bilaterally. CARDIAC: Irregularly irregular. Normal S1, S2. 3/6 systolic murmur at the cardiac apex. ABD: Soft, non-tender, non-distended, no rebound or guarding. EXTREMITIES: Dry, 2+ peripheral pulses throughout and warm to touch. SKIN: Warm, dry and intact; no rash. PERTINENT TEST FINDINGS: Potassium 4.2, creatinine 1.55 down from 1.6. GFR 58. White blood cell count 4.8, hemoglobin up from 7.5 to 8.9 after blood transfusion. Platelets 114. INR 1.2. Troponin 0.03 on admission. BNP 1126 on admission. TSH 4.7. EKG with atrial fibrillation with RVR to 116 beats per minute on date of admission with lateral ST depressions. IMPRESSION AND PLAN: Mr. Pringle is a 55-year-old gentleman with an extensive medical history including chronic atrial fibrillation, chronic nonischemic cardiomyopathy (LVEF 30% to 35%), significant gastrointestinal bleed history, status post Yony-en-Y for gastric ulcer, pancytopenia requiring transfusions, stage 3 chronic kidney disease, and esophageal varices with bleeding requiring hospitalization in the past, who presented to [facility] on 09/13/2016 with decompensated heart failure and atrial fibrillation with rapid ventricular response. Since that time, he has made interval improvement with diuresis and monitoring on cardiac telemetry. His renal parameters are improving currently; however, he has developed interval hypotension prompting consultation today. I see that several new medications have been added to his medical regimen including digoxin, diltiazem, hydralazine, and morphine, as he was not on any of these prior to hospitalization. In speaking with him, he feels fine, he has no complaints at this time. He denies having any chest pains, pressures, palpitations, dizziness, or loss of consciousness. He feels as though his breathing is also adequate. In light of these collective findings, I recommend continued holding/discontinuation of digoxin (he has chronic atrial fibrillation, therefore this does not provide much additional value). Discontinuation of diltiazem as his heart rates are presently controlled. Discontinuation of hydralazine for the time being until he is off dopamine and more judicious use of morphine, only if needed as this is likely contributing to hypertension as well. In addition, I feel that discontinuation of dopamine with interval close assessment of his blood pressures will be helpful today. Should he truly require an inotrope for blood pressure support, then we may trial him on a low dose of dobutamine. If his blood pressures continued to drop despite these measures, then transfer to the CCU will be made. I anticipate that his blood pressures will trend up once the medications stated above wash out of his system within the next 24 to 48 hours. He does not show any signs of an infection either as this would be a concern given his blood pressure decreasing. VR/KOKIL Blaze Consultation Report [facility] [id number] [place]. [address] NAME: MAKSIM PRINGLE : 60 STATUS : ADM IN PAT#: [id number] AGE: 55 ADM/REG DATE : 09/14/16 MR#: [id number] REPORT SERV DATE: 09/16/16 DICTATED BY: BLAZE JHAVERI DATE: 09/16/16 REPORT STATUS : Draft TRANSCRIBED BY: MODL DATE: 09/16/16 MD Meng / [id number] CC: Braden Ayala M.D.
--- NOTE | ~2016-09-13 | DS ---
Discharge Summary [facility] [address] [place]. [address] NAME: MAKSIM LOZANO : 60 STATUS : ADM IN [facility]#: [id number] AGE: 55 ADM/REG DATE : 09/14/16 MR#: [id number] REPORT SERV DATE: 09/19/16 DICTATED BY: SHANE JAMISON II DATE: 09/19/16 REPORT STATUS : Draft TRANSCRIBED BY: MODL DATE: 09/19/16 ADMISSION DATE: 09/14/2016 DISCHARGE DATE: 09/19/2016 DISCHARGE DIAGNOSES: 1. Acute on chronic systolic congestive heart failure, EF 30%. 2. Nonischemic cardiomyopathy. 3. Mild acute kidney injury. 4. Moderate pulmonary hypertension. 5. Moderate to severe eccentric mitral regurgitation and mild tricuspid regurgitation. 6. Chronic atrial fibrillation. 7. Chronic lymphedema. CONSULTS: Dr. Fan with [facility] and Dr. Elias with Nephrology. BRIEF HISTORY OF PRESENT ILLNESS: The patient is a 55-year-old male with the above history, who presented to [facility] due to atrial fibrillation with RVR and acute CHF with volume overload and edema. For detailed history and physical examination, please see Dr. Matute's note from 09/13/2016. HOSPITAL COURSE: Upon admission, the patient was in atrial fibrillation with RVR and acute CHF. He was initially placed on digoxin and hydralazine in addition to his home Coreg as well as Cardizem and given IV diuresis. The patient subsequently became quite hypotensive and was moved to the ICU, where he was given dobutamine, and his blood pressure medicines were held. Diuresis was continued, and he was eventually rate controlled with low-dose metoprolol, and his Cardizem, dig, and hydralazine was discontinued. His creatinine was at baseline of about 1.07 on admission and briefly bumped up to 1.7 with his hypotensive episode and subsequently went back down to his baseline though now 1.34, likely due to mild over-diuresis. Dr. Fan is holding his Bumex and overall decreasing it to 1 mg p.o. b.i.d. to be resumed on Friday. His blood pressure has normalized off dobutamine and he is doing well on room air. The patient has had multiple admissions for CHF and will have close followup with Dr. Sams on 09/23. Also resume his home health and initiated a CHF protocol. He was again instructed in detail on daily weights and additional diuretics as needed for weight gain. At this point, he is stable for discharge. DISCHARGE MEDICATIONS: 1. Allopurinol 100 mg p.o. b.i.d. 2. Aspirin 81 mg p.o. daily. 3. Lipitor 20 mg p.o. at bedtime. 4. Bumex 1 mg p.o. b.i.d. 5. Synthroid 25 mcg p.o. daily. 6. Coreg 6.25 mg p.o. b.i.d. 7. Potassium chloride 20 mg p.o. daily. DISCHARGE INSTRUCTIONS: The patient will follow up with Dr. Sams on 09/23. Also schedule followup appointment to see Dr. Rushing in [facility] in the next one to two weeks. Discharge Summary [address] [address] NAME: MAKSIM LOZANO : 60 STATUS : ADM IN [facility]#: [id number] AGE: 55 ADM/REG DATE : 09/14/16 MR#: [id number] REPORT SERV DATE: 09/19/16 DICTATED BY: SHANE JAMISON II DATE: 09/19/16 REPORT STATUS : Draft TRANSCRIBED BY: ATA DATE: 09/19/16 DICTATED BY: MD MICHELLE Suarez II/ATA Shane Jamison II, MD / [id number] CC: Braden Ayala M.D.
[2016-09-13 10:31] LABS: BASOPHILS 0.4 %; BASOPHILS ABSOLUTE 0.02 10/3/uL (0.0-0.16); EOSINOPHILS 2.5 %; EOSINOPHILS ABSOLUTE 0.14 10/3/uL (0.0-0.53); ER CBC TAT 0 Hrs 03 Mins; HEMATOCRIT 27.3 % (40.0-51.0); HEMOGLOBIN 8.8 g/dL (13.6-17.8); IMMATURE GRANULOCYTES 0.5 %; IMMATURE GRANULOCYTES ABSOLUTE 0.03 10/3/uL (0.0-0.11); LYMPHOCYTES 7.8 %; LYMPHOCYTES ABSOLUTE 0.43 10/3/uL (0.67-4.30); MANUAL DIFF NO %; MEAN CORPUS HGB CONC 32.2 g/dL (32.0-36.0); MEAN CORPUSCULAR HEMOGLOB 27.2 pg (26.0-34.0); MEAN CORPUSCULAR VOLUME 84.3 fL (80-100); MEAN PLATELET VOLUME 9.8 fL (9.2-13.0); MONOCYTES 10.8 %; NEUTROPHILS ABSOLUTE 4.31 10/3/uL (2.02-8.40); PLATELET COUNT 168 10/3/uL (150-400); RBC DISTRIBUTION WIDTH 19.6 % (12.0-16.0); RED CELL COUNT 3.24 10/6/uL (4.7-6.1); WHITE BLOOD CELLS 5.5 10/3/uL (4.5-10.5)
[2016-09-13 10:39] LABS: INTERNATIONAL NORMAL RATI 1.2 UNITS (-); PARTIAL THROMBO TIME 30.8 SEC (22.5-37.2); PROTIME (NOT ORD) 14.8 SEC (12.0-14.5)
[2016-09-13 10:56] LABS: ALBUMIN 3.1 G/DL (3.5-5.0); CALCIUM, SERUM 9.3 MG/DL (8.5-10.4); CHEST PAIN PROFILE TAT 0 Hrs 28 Mins; CHLORIDE, SERUM 99 MMOL/L (96-112); CO2 (CARBON DIOXIDE) 26 MMOL/L (24-34); CREATININE 1.07 MG/DL (0.70-1.30); GFR AFRICAN AMERICAN 90 ML/MIN (>=60); GFR NON AFRICAN AMERICAN 78 ML/MIN (>=60); GLUCOSE, SERUM 82 MG/DL (60-99); SGPT(ALT) 19 U/L (5-65); SODIUM, SERUM 131 MMOL/L (135-148); TOTAL BILIRUBIN 1.5 MG/DL (0-1.2); TOTAL PROTEIN 8.1 G/DL (6.0-8.5); TROPONIN I 0.03 NG/ML (<0.05)
[2016-09-13 10:59] LABS: ALKALINE PHOSPHATASE 219 U/L (45-117); BUN (BLOOD UREA NITROGEN) 15 MG/DL (6-23); DIRECT BILIRUBIN 0.7 MG/DL (0.0-0.4); INDIRECT BILIRUBIN(NOT ORDER) 0.8 MG/DL (0.1-0.9); POTASSIUM, SERUM 4.9 MMOL/L (3.5-5.3); SGOT(AST) 39 U/L (5-40)
[2016-09-14 06:24] LABS: BUN (BLOOD UREA NITROGEN) 17 MG/DL (6-23); CALCIUM, SERUM 9.1 MG/DL (8.5-10.4); CHLORIDE, SERUM 99 MMOL/L (96-112); CO2 (CARBON DIOXIDE) 26 MMOL/L (24-34); CREATININE 1.13 MG/DL (0.70-1.30); GFR AFRICAN AMERICAN 84 ML/MIN (>=60); GFR NON AFRICAN AMERICAN 73 ML/MIN (>=60); GLUCOSE, SERUM 72 MG/DL (60-99); POTASSIUM, SERUM 4.4 MMOL/L (3.5-5.3); SODIUM, SERUM 134 MMOL/L (135-148)
[2016-09-14 06:29] LABS: BASOPHILS 0.2 %; BASOPHILS ABSOLUTE 0.01 10/3/uL (0.0-0.16); EOSINOPHILS 3.6 %; EOSINOPHILS ABSOLUTE 0.15 10/3/uL (0.0-0.53); HEMATOCRIT 25.1 % (40.0-51.0); HEMOGLOBIN 8.1 g/dL (13.6-17.8); IMMATURE GRANULOCYTES 0.2 %; IMMATURE GRANULOCYTES ABSOLUTE 0.01 10/3/uL (0.0-0.11); LYMPHOCYTES 7.9 %; LYMPHOCYTES ABSOLUTE 0.33 10/3/uL (0.67-4.30); MEAN CORPUS HGB CONC 32.3 g/dL (32.0-36.0); MEAN CORPUSCULAR HEMOGLOB 27.5 pg (26.0-34.0); MEAN CORPUSCULAR VOLUME 85.1 fL (80-100); MEAN PLATELET VOLUME 10.1 fL (9.2-13.0); MONOCYTES 14.5 %; MONOCYTES ABSOLUTE 0.61 10/3/uL (0.21-1.20); NEUTROPHILS 73.6 %; NEUTROPHILS ABSOLUTE 3.09 10/3/uL (2.02-8.40); PLATELET COUNT 135 10/3/uL (150-400); RBC DISTRIBUTION WIDTH 19.9 % (12.0-16.0); RED CELL COUNT 2.95 10/6/uL (4.7-6.1); WHITE BLOOD CELLS 4.2 10/3/uL (4.5-10.5)
[2016-09-14 06:31] LABS: MANUAL DIFF NO %
[2016-09-15 06:48] LABS: BASOPHILS 0.2 %; BASOPHILS ABSOLUTE 0.01 10/3/uL (0.0-0.16); EOSINOPHILS 2.7 %; EOSINOPHILS ABSOLUTE 0.12 10/3/uL (0.0-0.53); HEMATOCRIT 23.5 % (40.0-51.0); HEMOGLOBIN 7.5 g/dL (13.6-17.8); IMMATURE GRANULOCYTES 0.2 %; IMMATURE GRANULOCYTES ABSOLUTE 0.01 10/3/uL (0.0-0.11); LYMPHOCYTES 17.8 %; LYMPHOCYTES ABSOLUTE 0.79 10/3/uL (0.67-4.30); MEAN CORPUS HGB CONC 31.9 g/dL (32.0-36.0); MEAN CORPUSCULAR VOLUME 84.5 fL (80-100); MEAN PLATELET VOLUME 9.7 fL (9.2-13.0); MONOCYTES ABSOLUTE 0.22 10/3/uL (0.21-1.20); NEUTROPHILS 74.1 %; NEUTROPHILS ABSOLUTE 3.29 10/3/uL (2.02-8.40); PLATELET COUNT 109 10/3/uL (150-400); RBC DISTRIBUTION WIDTH 19.8 % (12.0-16.0); RED CELL COUNT 2.78 10/6/uL (4.7-6.1); WHITE BLOOD CELLS 4.4 10/3/uL (4.5-10.5)
[2016-09-15 06:49] LABS: MANUAL DIFF NO %; RETICULOCYTE COUNT 2.9 % (0.5-2.5); RETICULOCYTE COUNT ABSOLUTE 80.9 10/3/uL (20.2-119.8)
[2016-09-15 07:25] LABS: % IRON SAT 6 % (20-50); CALCIUM, SERUM 8.8 MG/DL (8.5-10.4); CHLORIDE, SERUM 97 MMOL/L (96-112); CO2 (CARBON DIOXIDE) 29 MMOL/L (24-34); FERRITIN 95 NG/ML (26-388); IRON BINDING CAPACITY 342 MCG/DL (250-450); IRON, SERUM 22 MCG/DL (35-150); POTASSIUM, SERUM 4.6 MMOL/L (3.5-5.3); SODIUM, SERUM 130 MMOL/L (135-148)
[2016-09-15 07:26] LABS: BUN (BLOOD UREA NITROGEN) 21 MG/DL (6-23); GFR AFRICAN AMERICAN 51 ML/MIN (>=60); GFR NON AFRICAN AMERICAN 44 ML/MIN (>=60); GLUCOSE, SERUM 95 MG/DL (60-99)
[2016-09-15 20:48] LABS: BASOPHILS 0.4 %; BASOPHILS ABSOLUTE 0.02 10/3/uL (0.0-0.16); EOSINOPHILS 2.9 %; EOSINOPHILS ABSOLUTE 0.15 10/3/uL (0.0-0.53); HEMATOCRIT 25.1 % (40.0-51.0); HEMOGLOBIN 8.1 g/dL (13.6-17.8); IMMATURE GRANULOCYTES 0.4 %; IMMATURE GRANULOCYTES ABSOLUTE 0.02 10/3/uL (0.0-0.11); LYMPHOCYTES 6.1 %; LYMPHOCYTES ABSOLUTE 0.31 10/3/uL (0.67-4.30); MANUAL DIFF NO %; MEAN CORPUS HGB CONC 32.3 g/dL (32.0-36.0); MEAN CORPUSCULAR HEMOGLOB 27.5 pg (26.0-34.0); MEAN CORPUSCULAR VOLUME 85.1 fL (80-100); MEAN PLATELET VOLUME 10.7 fL (9.2-13.0); MONOCYTES ABSOLUTE 0.66 10/3/uL (0.21-1.20); NEUTROPHILS 77.2 %; NEUTROPHILS ABSOLUTE 3.93 10/3/uL (2.02-8.40); PLATELET COUNT 157 10/3/uL (150-400); RBC DISTRIBUTION WIDTH 19.3 % (12.0-16.0); RED CELL COUNT 2.95 10/6/uL (4.7-6.1); WHITE BLOOD CELLS 5.1 10/3/uL (4.5-10.5)
[2016-09-15 21:11] LABS: BUN (BLOOD UREA NITROGEN) 23 MG/DL (6-23); CALCIUM, SERUM 8.8 MG/DL (8.5-10.4); CHLORIDE, SERUM 99 MMOL/L (96-112); CO2 (CARBON DIOXIDE) 30 MMOL/L (24-34); GFR AFRICAN AMERICAN 55 ML/MIN (>=60); GFR NON AFRICAN AMERICAN 48 ML/MIN (>=60); GLUCOSE, SERUM 82 MG/DL (60-99); POTASSIUM, SERUM 4.3 MMOL/L (3.5-5.3); SODIUM, SERUM 135 MMOL/L (135-148)
[2016-09-16 07:29] LABS: BASOPHILS 0.2 %; BASOPHILS ABSOLUTE 0.01 10/3/uL (0.0-0.16); EOSINOPHILS 3.3 %; EOSINOPHILS ABSOLUTE 0.16 10/3/uL (0.0-0.53); HEMATOCRIT 26.8 % (40.0-51.0); HEMOGLOBIN 8.9 g/dL (13.6-17.8); IMMATURE GRANULOCYTES 0.4 %; IMMATURE GRANULOCYTES ABSOLUTE 0.02 10/3/uL (0.0-0.11); LYMPHOCYTES 13.2 %; LYMPHOCYTES ABSOLUTE 0.63 10/3/uL (0.67-4.30); MEAN CORPUS HGB CONC 33.2 g/dL (32.0-36.0); MEAN CORPUSCULAR HEMOGLOB 28.3 pg (26.0-34.0); MEAN CORPUSCULAR VOLUME 85.4 fL (80-100); MEAN PLATELET VOLUME 9.4 fL (9.2-13.0); MONOCYTES 12.6 %; NEUTROPHILS 70.3 %; NEUTROPHILS ABSOLUTE 3.36 10/3/uL (2.02-8.40); PLATELET COUNT 114 10/3/uL (150-400); RBC DISTRIBUTION WIDTH 19.5 % (12.0-16.0); RED CELL COUNT 3.14 10/6/uL (4.7-6.1); WHITE BLOOD CELLS 4.8 10/3/uL (4.5-10.5)
[2016-09-16 07:31] LABS: MANUAL DIFF NO %
[2016-09-16 07:43] LABS: BUN (BLOOD UREA NITROGEN) 24 MG/DL (6-23); CALCIUM, SERUM 9.1 MG/DL (8.5-10.4); CHLORIDE, SERUM 97 MMOL/L (96-112); CO2 (CARBON DIOXIDE) 30 MMOL/L (24-34); CREATININE 1.55 MG/DL (0.70-1.30); GFR AFRICAN AMERICAN 58 ML/MIN (>=60); GFR NON AFRICAN AMERICAN 50 ML/MIN (>=60); GLUCOSE, SERUM 90 MG/DL (60-99); POTASSIUM, SERUM 4.2 MMOL/L (3.5-5.3); SODIUM, SERUM 132 MMOL/L (135-148)
[2016-09-17 06:06] LABS: BASOPHILS 0.2 %; BASOPHILS ABSOLUTE 0.01 10/3/uL (0.0-0.16); EOSINOPHILS 3.2 %; EOSINOPHILS ABSOLUTE 0.15 10/3/uL (0.0-0.53); HEMATOCRIT 27.8 % (40.0-51.0); HEMOGLOBIN 9.2 g/dL (13.6-17.8); IMMATURE GRANULOCYTES 0.4 %; IMMATURE GRANULOCYTES ABSOLUTE 0.02 10/3/uL (0.0-0.11); LYMPHOCYTES 16.7 %; LYMPHOCYTES ABSOLUTE 0.78 10/3/uL (0.67-4.30); MANUAL DIFF NO %; MEAN CORPUS HGB CONC 33.1 g/dL (32.0-36.0); MEAN CORPUSCULAR VOLUME 84.5 fL (80-100); MEAN PLATELET VOLUME 9.8 fL (9.2-13.0); MONOCYTES 11.8 %; MONOCYTES ABSOLUTE 0.55 10/3/uL (0.21-1.20); NEUTROPHILS 67.7 %; NEUTROPHILS ABSOLUTE 3.16 10/3/uL (2.02-8.40); PLATELET COUNT 114 10/3/uL (150-400); RBC DISTRIBUTION WIDTH 20.1 % (12.0-16.0); RED CELL COUNT 3.29 10/6/uL (4.7-6.1); WHITE BLOOD CELLS 4.7 10/3/uL (4.5-10.5)
[2016-09-17 06:12] LABS: BUN (BLOOD UREA NITROGEN) 22 MG/DL (6-23); CALCIUM, SERUM 8.9 MG/DL (8.5-10.4); CHLORIDE, SERUM 96 MMOL/L (96-112); CO2 (CARBON DIOXIDE) 32 MMOL/L (24-34); CREATININE 1.14 MG/DL (0.70-1.30); GFR AFRICAN AMERICAN 83 ML/MIN (>=60); GFR NON AFRICAN AMERICAN 72 ML/MIN (>=60); GLUCOSE, SERUM 71 MG/DL (60-99); POTASSIUM, SERUM 3.6 MMOL/L (3.5-5.3); SODIUM, SERUM 137 MMOL/L (135-148)
[2016-09-18 04:27] LABS: BASOPHILS 0.5 %; BASOPHILS ABSOLUTE 0.02 10/3/uL (0.0-0.16); EOSINOPHILS 2.8 %; EOSINOPHILS ABSOLUTE 0.12 10/3/uL (0.0-0.53); HEMATOCRIT 29.5 % (40.0-51.0); HEMOGLOBIN 9.6 g/dL (13.6-17.8); IMMATURE GRANULOCYTES 0.2 %; IMMATURE GRANULOCYTES ABSOLUTE 0.01 10/3/uL (0.0-0.11); LYMPHOCYTES 14.3 %; LYMPHOCYTES ABSOLUTE 0.61 10/3/uL (0.67-4.30); MEAN CORPUS HGB CONC 32.5 g/dL (32.0-36.0); MEAN CORPUSCULAR HEMOGLOB 27.9 pg (26.0-34.0); MEAN CORPUSCULAR VOLUME 85.8 fL (80-100); MEAN PLATELET VOLUME 9.6 fL (9.2-13.0); MONOCYTES ABSOLUTE 0.68 10/3/uL (0.21-1.20); NEUTROPHILS 66.2 %; NEUTROPHILS ABSOLUTE 2.82 10/3/uL (2.02-8.40); PLATELET COUNT 115 10/3/uL (150-400); RBC DISTRIBUTION WIDTH 20.7 % (12.0-16.0); RED CELL COUNT 3.44 10/6/uL (4.7-6.1); WHITE BLOOD CELLS 4.3 10/3/uL (4.5-10.5)
[2016-09-18 04:29] LABS: MANUAL DIFF NO %
[2016-09-18 04:39] LABS: ALBUMIN 2.5 G/DL (3.5-5.0); BUN (BLOOD UREA NITROGEN) 21 MG/DL (6-23); CALCIUM, SERUM 8.9 MG/DL (8.5-10.4); CHLORIDE, SERUM 92 MMOL/L (96-112); CO2 (CARBON DIOXIDE) 33 MMOL/L (24-34); CREATININE 1.05 MG/DL (0.70-1.30); GFR AFRICAN AMERICAN 92 ML/MIN (>=60); GFR NON AFRICAN AMERICAN 80 ML/MIN (>=60); POTASSIUM, SERUM 4.1 MMOL/L (3.5-5.3); SODIUM, SERUM 132 MMOL/L (135-148)
[2016-09-18 04:42] LABS: GLUCOSE, SERUM 91 MG/DL (60-99); PHOSPHORUS, SERUM 2.7 MG/DL (2.5-4.5)
[2016-09-19 06:25] LABS: CALCIUM, SERUM 8.8 MG/DL (8.5-10.4); CHLORIDE, SERUM 91 MMOL/L (96-112); CREATININE 1.34 MG/DL (0.70-1.30); GFR AFRICAN AMERICAN 69 ML/MIN (>=60); GFR NON AFRICAN AMERICAN 59 ML/MIN (>=60); GLUCOSE, SERUM 82 MG/DL (60-99); POTASSIUM, SERUM 3.7 MMOL/L (3.5-5.3); SODIUM, SERUM 133 MMOL/L (135-148)
[2016-09-19 06:26] LABS: BUN (BLOOD UREA NITROGEN) 25 MG/DL (6-23); CO2 (CARBON DIOXIDE) 38 MMOL/L (24-34)
[2016-09-19] MEDS ORDERED: BUM1 PO (10:59)
[2016-09-19] MEDS ORDERED: KLOR-CON M2020 MEQ PO (11:02)
[2016-09-19] MEDS ORDERED: LIPITOR20 PO (11:17)
[2016-10-27] MEDS ORDERED: HALF81 PO (15:44)
[2016-10-27] MEDS ORDERED: BUM1 PO (15:45)
[2016-10-27] MEDS ORDERED: Z100 PO (15:45)
[2016-10-27] MEDS ORDERED: SYN.025B PO (15:45)
[2016-10-27] MEDS ORDERED: NORCO1 TAB PO (15:46)
[2016-11-04] MEDS ORDERED: CORDARONE PO (13:09)
[2016-11-04] MEDS ORDERED: COREG3 PO (13:10)
[2016-11-04] MEDS ORDERED: IMDUR30 PO (13:11)
[2016-11-04] MEDS ORDERED: ENULOSE PO (13:13)
[2016-11-04] MEDS ORDERED: KLOR-CON20 MEQ PO (13:14)
[2016-11-04] MEDS ORDERED: APRES10B PO (13:15)
[2016-11-04] MEDS ORDERED: SPIRO25 PO (13:15)
[2016-11-18] MEDS ORDERED: BUM1 PO (13:14)
[2016-11-18] MEDS ORDERED: Z100 PO (13:14)
[2016-11-18] MEDS ORDERED: CORDARONE PO (13:15)
[2016-11-18] MEDS ORDERED: COREG3 PO (13:15)
[2016-11-18] MEDS ORDERED: LEVOTHYROXIN25 MCG PO (13:15)
[2016-11-18] MEDS ORDERED: KLOR-CON M2020 MEQ PO (13:16)
[2016-11-18] MEDS ORDERED: SPIRO25 PO (13:16)
[2016-11-18] MEDS ORDERED: APRES10B PO (13:16)
[2016-11-18] MEDS ORDERED: IMDUR30 PO (13:16)
[2016-11-18] MEDS ORDERED: HALF81 PO (13:17)
[2016-11-18] MEDS ORDERED: LIPITOR10 PO (13:18)
[2016-11-22] MEDS ORDERED: LEVOTHYROXIN50 MCG PO (13:16)
[2016-11-22] MEDS ORDERED: VIBRATAB100 MG PO (13:20)
[2016-12-29] MEDS ORDERED: IMDUR30 PO (10:59)
[2017-01-02] MEDS ORDERED: BUM2 PO (10:21)
[2017-01-02] MEDS ORDERED: COREG6 PO (10:22)
[2017-01-02] MEDS ORDERED: FOLIC PO (10:24)
[2017-01-02] MEDS ORDERED: B1100 PO (10:25)
== END 2016-09-19 11:59 | disposition home or self-care (01) | DRG 291 ==
LOC: ER 10:28 → CDU1 12:22 → CDU2 13:26 → 2SO 09-14 12:59 → CCU 09-16 18:34 → 7NO 09-18 15:56
PROVIDERS: Emergency Medicine; Internal Medicine; Internal Medicine Pulmonary Disease
PROC: 02HV33Z Insertion of Infusion Device into Superior Vena Cava, Percutaneous Approach (ICD-10-PCS; principal; 2016-09-15)
DX: I50.43 Acute on chronic combined systolic (congestive) and diastolic (congestive) heart failure (principal); R57.0 Cardiogenic shock; J96.90 Respiratory failure, unspecified, unspecified whether with hypoxia or hypercapnia; D61.818 Other pancytopenia; I27.2 Other secondary pulmonary hypertension; I73.9 Peripheral vascular disease, unspecified; N18.3 Chronic kidney disease, stage 3 (moderate); I36.1 Nonrheumatic tricuspid (valve) insufficiency; I48.0 Paroxysmal atrial fibrillation; I25.5 Ischemic cardiomyopathy; Z83.3 Family history of diabetes mellitus; Z82.49 Family history of ischemic heart disease and other diseases of the circulatory system; Z98.890 Other specified postprocedural states; F10.10 Alcohol abuse, uncomplicated
CPT/HCPCS: 36415; 36569; 71010; 80048; 80069; 80076; 82607; 82728; 82962; 83540; 83550; 83735; 83880; 84443; 84484; 85025; 85045; 85610; 85730; 86850; 86900; 86901; 86920; 87641; 93005; 96374; 96375; 97161-GP; 97166-GO; 99285; A9270-GY; C1751; G8978-CJ-GP; G8980-CJ-GP; G8987-CJ-GO; G8988-CJ-GO; G8989-CJ-GO; J1160; J1750; J1940; J2405; J3411; P9016

== ENCOUNTER 2016-12-09 19:52 | Inpatient (IN) | payer MEDICARE ==
[~2016-12-09] VITALS: Ht 182.9 cm; Wt 83.9 kg
--- NOTE | ~2016-12-09 | CN ---
Consultation Report [facility] [address] [place]. [address] NAME: MAKSIM LOZANO : 60 STATUS : ADM IN PAT#: [id number] AGE: 56 ADM/REG DATE : 12/09/16 MR#: [id number] REPORT SERV DATE: 12/10/16 DICTATED BY: DATE: REPORT STATUS : Draft TRANSCRIBED BY: MODL DATE: 12/10/16 NEUROLOGY CONSULTATION DATE OF CONSULTATION: 12/10/2016 REASON FOR CONSULT: Left upper extremity weakness and jerking, concern for possible seizure versus stroke. HISTORY OF PRESENT ILLNESS: This is a 56-year-old male presented to [facility] secondary to pacemaker site leaking as well as left upper extremity weakness. The patient was subsequently transferred to the MICU secondary to change in mental status as well as observed multiple episodes of jerking in the left upper extremity by medical staff concerning for seizure activity. The patient reports no further arm jerking activity overnight, but complained of persistent weakness in the left upper extremity proximal greater than distal. According to the patient, this has been ongoing since pacemaker placement in November 2016. The patient denies any previous weakness in the arm. Otherwise, denies any dysarthria, denies any weakness in the leg, and denies any numbness in the arm or hand. The patient denies similar events in the past and denies any recent changes in medication. Although the patient on record was noted to have some concern regarding possible medication noncompliance. The patient does have a history of alcohol usage with the patient's last alcohol drink occurred on 12/06/2016. There is a concern for possible alcohol withdrawal and overnight, the patient was placed on p.r.n. Ativan as well as Precedex drip. The patient otherwise denies any recent illness, denies any improvement in the arm weakness, and no other complaint was otherwise reported. HOME MEDICATIONS: Consist of Synthroid, amiodarone, Coreg, hydralazine, Imdur, potassium, Aldactone, Bumex, allopurinol, and aspirin. ALLERGIES: AT THE TIME OF EVALUATION, THE PATIENT REPORTS ALLERGY TO SHAUNA INHIBITORS. PAST MEDICAL HISTORY: Significant for nonischemic cardiomyopathy, previous EF of 35%, with the patient's most recent EF on ultrasound performed on 12/10/2016 demonstrated EF of 30%. The patient was noted to have chronic atrial fibrillation, although not on anticoagulation. The patient has had a history of Xarelto with resultant GI bleed. The patient does have a history of ventricular tachycardia; hypothyroidism; history of stroke with no previous deficits; history of alcohol usage, last alcohol consumption occurring on 12/06/2016; history of bilateral lymphedema. FAMILY HISTORY: Significant for heart disease. SOCIAL HISTORY: Denies tobacco usage, but does have a persistent alcohol usage again, last usage was 12/06/2016. REVIEW OF SYSTEMS: Consultation Report [facility] [facility] [id number] [facility] [place]. [address] NAME: MAKSIM LOZANO : 60 STATUS : ADM IN PAT#: [id number] AGE: 56 ADM/REG DATE : 12/09/16 MR#: [id number] REPORT SERV DATE: 12/10/16 DICTATED BY: DATE: REPORT STATUS : Draft TRANSCRIBED BY: MODL DATE: 12/10/16 Negative except for those mentioned in the HPI. PHYSICAL EXAMINATION: VITAL SIGNS: At the time of evaluation, the patient was noted to have vital signs with T- max of 98.0, heart rate of 84-134, respirations of 17 to 24, and blood pressure of 82 to 115 over 63 to 94. GENERAL: The patient is well developed, well nourished, in no acute distress. CARDIOVASCULAR: Regular rate and rhythm. No carotid bruits were otherwise auscultated. PULMONARY: Clear to auscultation bilaterally. NEUROLOGICAL: Generally, the patient is alert and oriented to person, place, year, and month. Follows simple and 2-step commands. No aphasia was otherwise appreciated. Minimal aphasia was noted. The patient was noted to have intact registration, difficulties with recall. Cranial nerves 2-12: Pupils equal, round, and reactive to light. Horizontal eye movement was noted to be intact with intact peripheral vision. Symmetrical facial expression and sensation. Midline tongue. Normal palatal movement. Mild decreased hearing in bilateral ears. The patient demonstrated 5/5 right upper extremity as well as bilateral lower extremity strength, with the patient noted to have 0/5 for left upper extremity proximal strength and 2 to 3/5 left upper extremity radio producer strength at the time of evaluation, and reports symmetrical sensation in bilateral upper and lower extremity. At the time of evaluation, was noted to have decreased reflex in the left upper extremity, 2+ reflex in bilateral lower extremity at the time of evaluation, and was noted to have 2+ reflex in the right upper extremity. Normal [id number] examination without ataxia on the right upper extremity. Gait was not evaluated due to concern for alcohol withdrawal. LABORATORY STUDIES: Demonstrated white blood cell count of 3.1, hemoglobin of 11.3, hematocrit of 32.9, and platelet count of 133. Chemistry panel: Sodium 135, potassium 3.9, chloride 100, bicarb 27, BUN of 8, creatinine of 0.86, glucose of 94, calcium of 8.8, serum cholesterol of 128. HDL of 91, LDL of 25, and triglycerides of 60. Hemoglobin A1c of 4.8. The patient's CT scan was reviewed. The patient does have a right MCA territory stroke with associated encephalomalacia. Otherwise, no acute process was seen. Generalized atrophy was noted at the time of evaluation. IMPRESSION: Left upper extremity weakness with the patient reports symptom persistent. According to the patient, the symptom has been ongoing since pacemaker placement without significant improvement. On examination, the patient was noted to have proximal greater than distal left upper extremity weakness, with pacemaker interrogation reports atrial fibrillation. Concern for possible stroke versus symptomatic seizure versus possible peripheral nerve injury. The patient is unable to tolerate MRI secondary to recent pacemaker placement. We will increase aspirin. We will place the patient on atorvastatin secondary to presence of jerking episodes. We will also start the patient on Zonegran 200 mg p.o. at bedtime. We will obtain EEG for evaluation. Check laboratory study. May need to discuss with cardiology regarding possible anticoagulation usage. Also patient does have a history of previous GI bleeding on Xarelto. Together with the patient's history of alcohol usage as well as medication noncompliance, the patient may not be a very good anticoagulation candidate. Consultation Report [facility] [address] [facility] [place]. [address] NAME: MAKSIM LOZANO : 60 STATUS : ADM IN [facility]#: [id number] AGE: 56 ADM/REG DATE : 12/09/16 MR#: [id number] REPORT SERV DATE: 12/10/16 DICTATED BY: DATE: REPORT STATUS : Draft TRANSCRIBED BY: MODL DATE: 12/10/16 RECOMMENDATION: 1. Increase aspirin to 325 mg p.o. daily. 2. Atorvastatin 80 mg p.o. at bedtime. 3. Zonegran 200 mg p.o. at bedtime. 4. EEG routine. 5. Vitamin B12, folate, TSH, ammonia, free T4 with morning labs. 6. PT/OT. 7. No MRI of the brain secondary to recent pacemaker placement. CCH/MODL Karlo Holly MD / [id number] CC: Rod Ag MD
--- NOTE | ~2016-12-09 | OP ---
Record Of Operation [facility] [address] [place]. [address] NAME: MAKSIM PRINLGE : 60 STATUS : ADM IN PAT#: [id number] AGE: 56 ADM/REG DATE : 12/09/16 MR#: [id number] REPORT SERV DATE: 12/10/16 DICTATED BY: MAGALIE SANTIAGO DATE: 12/10/16 REPORT STATUS : Draft TRANSCRIBED BY: MODL DATE: 12/10/16 DATE OF PROCEDURE: 12/10/2016 PROCEDURE: Insertion of a right internal jugular triple-lumen catheter for central venous access. INDICATION FOR PROCEDURE: Ventricular arrhythmias and seizure activity on the floor prior to rapid response. CONSENT: Verbal from the patient after a full explanation of risks and benefits a written consent was also completed. ANESTHETIC: Lidocaine 1% without epinephrine 1 mL intradermally to obtain satisfactory topical anesthesia, and a sepsis chlorhexidine maximal sterile barriers were utilized including cap, gown, gloves, mask, and sterile drape. PROCEDURE IN DETAIL: Mr. Pringle was positioned in usual fashion and after creating a sterile barrier using the above, [id number] ultrasound was used to visualize his right internal jugular vein which was easily collapsible and sitting approximately 10 o'clock from the carotid artery which was pulsatile and noncompressible. A finder needle was used to aspirate a small amount of bright red blood after having administered topical anesthetic as above. A guidewire was passed to a depth of approximately 10 cm and subsequently a small elvis was made with an 11 blade scalpel and sequential dilator was passed using Seldinger technique and ultimately a 20 cm Arrow Blue 7-Dutch catheter was advanced to a depth of approximately 16 cm at the skin and secured to the skin using suture material and sterile Bioclusive dressing was applied. All three ports flushed and aspirated without difficulty, and a followup chest x-ray showed the line with a tip terminating approximately 1 cm above the level of the bronchus intermedius, and it was cleared for use. ESTIMATED BLOOD LOSS: Less than 1 mL. IMMEDIATE COMPLICATIONS: None. SOFI/ATA Magalie Santiago MD / [id number] CC: Rod Ag MD
--- NOTE | ~2016-12-09 | CN ---
Consultation Report [facility] [address] [place]. [address] NAME: MAKSIM PRINGLE : 60 STATUS : ADM IN [facility]#: [id number] AGE: 56 ADM/REG DATE : 12/09/16 MR#: [id number] REPORT SERV DATE: 12/10/16 DICTATED BY: MAGALIE SANTIAGO DATE: 12/10/16 REPORT STATUS : Draft TRANSCRIBED BY: MODKenyetta DATE: 12/10/16 CRITICAL CARE MEDICINE ACCEPTANCE/TRANSFER OF CARE NOTE. DATE OF CONSULTATION: HISTORY OF PRESENT ILLNESS: Mr. Pringle is a 56-year-old gentleman with ischemic cardiomyopathy, who has a long history of alcohol abuse and medication noncompliance. He was actually admitted recently and underwent insertion of AICD per Dr. Rosa from Electrophysiology after being evaluated by Dr. Sams and also by Palliative Care. He presented back last night to the emergency department complaining of left arm jerking and leaking from pacemaker insertion site, and was then admitted by Dr. Ag to the Hospital Medicine Service with a plan for Cardiology consultation the a.m. However, after arriving on the [address] [place] [address] Unit he developed left arm jerking and there was concern for seizure activity. He had four separate episodes involving arm jerking, and he was called as a rapid response, evaluated by Dr. Ku and moved to MICU bed 11 where he was noted to be intermittently tachycardic. He was awake and alert, although lethargic and over the first hour of being in the MICU his mental status did improve and he was able to give more history. He reports that he does drink alcohol regularly and his last drink was on Friday. He has no history of seizure activity, has never seen a neurologist and has never taken antiepileptic drugs. There was concern for evolving alcohol withdrawal and he was started on Precedex and p.r.n. Ativan was made available. He was given thiamine and we will continue to monitor him closely and follow up on Cardiology recommendations tomorrow morning. At this point, he is awake, alert, hemodynamically stable, oxygenating well, and pacemaker evaluation is in progress which had been previously requested by the Hospitalist Team. Case was discussed with Dr. Ku and the patient who are in agreement with plan for care and we will continue to monitor in the MICU. SO[facility]/ATA Magalie Santiago MD / [id number] CC: Rod Ag MD
--- NOTE | ~2016-12-09 | IDS ---
Interim Discharge Summary [facility] [address] [place]. [address] NAME: MAKSIM LOZANO : 60 STATUS : ADM IN PAT#: [id number] AGE: 56 ADM/REG DATE : 12/09/16 MR#: [id number] REPORT SERV DATE: 12/13/16 DICTATED BY: SVETLANA RED DATE: 12/13/16 REPORT STATUS : Draft TRANSCRIBED BY: MODKenyetta DATE: 12/13/16 ADMISSION DATE: 12/09/2016 DISCHARGE DATE: For details of the patient's H and P and reason for transfer to the MICU, please see detailed consultation done by Dr. Carpenter on the . Briefly this is a 56-year-old patient with known ischemic cardiomyopathy, long history of alcohol abuse, and medical noncompliance and recent placement of an AICD done by Dr. Rosa. The patient has a history of unsustained ventricular tachycardia. He also is on amiodarone. The patient was admitted to the Hospitalist Service secondary to left arm jerking and apparently there was some concern of seizure activity on the floor and the patient was then transferred to the MICU on the . He was seen by Neurology, EEG was done, and was actually positive for seizures and the patient is currently on Zonegran and has had no other symptoms other than proximal weakness of the left arm which may or may not be secondary to a brachial plexus etiology. The patient had a complete workup and during the CTA of the neck, it was noted that the patient had a left apical focal consolidative ground-glass lung opacity measuring approximately 3 cm. The lesion is indeterminate and differential consideration including infection and malignancy was mentioned. The patient will need a CT scan of the imaging of the chest for further evaluation of this finding. So with regard to his left arm jerking, this is resolved, he will need to follow up the CT scan which can be done before he is discharged. With regard to his nonsustained ventricular tachycardia, this is fairly well controlled and nonischemic cardiomyopathy responded to aggressive Bumex diuresis. KEYANNA Sams knows the patient very well and has been following him during this hospitalization. The patient then went into delirium tremens and that is resolving. He was treated with pretty much Precedex and Ativan, and this is much improved. Next, he was found to have a low cortisol level and currently is still on a small amount of Levophed. Solu-Cortef was started yesterday and the patient may have been over-diuresed and so 25 g of SPA has been given today with ideas to wean off the Levophed and then transfer the patient out of the unit. Neurology continues to follow the patient. The patient is notoriously noncompliant with his appointments or taking his medication and he pretty much has mentioned that he has no intentions of taking the seizure medication when he leaves here, so this will need to be discussed with him further prior to discharge. He had an ammonia level done during this admission which was within normal limits and LFTs were not particularly elevated. B12 and folate were within normal limits. TSH is only 5.1, free T4 of 1.54. No treatment is indicated at this time. /MODL Interim Discharge Summary [facility] [address] [place]. [address] NAME: MAKSIM LOZANO : 60 STATUS : ADM IN PAT#: [id number] AGE: 56 ADM/REG DATE : 12/09/16 MR#: [id number] REPORT SERV DATE: 12/13/16 DICTATED BY: SVETLANA RED DATE: 12/13/16 REPORT STATUS : Draft TRANSCRIBED BY: ATA DATE: 12/13/16 Svetlana Red M.D. / [id number] CC: Rod Ag MD
--- NOTE | ~2016-12-09 | EEG ---
Electroencephalogram [facility] [address] [place]. [address] NAME: MAKSIM LOZANO : 60 STATUS : ADM IN PAT#: [id number] AGE: 56 ADM/REG DATE : 12/09/16 MR#: [id number] REPORT SERV DATE: 12/10/16 DICTATED BY: DATE: REPORT STATUS : Draft TRANSCRIBED BY: MODL DATE: 12/10/16 CLINICAL INDICATIONS: Seizure-like activity, jerking of the left upper extremity. DESCRIPTION: This EEG was performed using 10/20 electrode placement system. During the EEG study, the patient was noted to have predominant occipital rhythm of 10-11 hertz. The patient was noted to have frequent episodes of focal seizures, mostly in the right temporoparietal area, mostly in the P4, T6, as well as the CZ electrodes without generalized spray. Photic stimulation was performed with appropriate driving response; however, hyperventilation was not performed during the EEG evaluation. The patient achieved drowsy state during the EEG study. INTERPRETATION: This EEG study obtained during awake and drowsy state may be considered abnormal secondary to presence of electrographic seizure in the right temporal as well as parietal area in the P4, T6, and CZ electrodes, raises the possibility of status partialis continua or status simple partial seizure. No secondary generalization of the electrographic seizure was otherwise seen. The patient does not appear to have the clinical events with electrographic seizure other than persistent left upper extremity weakness. Clinical correlation is otherwise recommended. [facility]/ATA Karlo Holly MD / [id number] CC: Rod Ag MD
--- NOTE | ~2016-12-09 | CN ---
Consultation Report [facility] [address] [place] [place]. [address] NAME: MAKSIM PRINGLE : 60 STATUS : ADM IN [facility]#: [id number] AGE: 56 ADM/REG DATE : 12/09/16 MR#: [id number] REPORT SERV DATE: 12/10/16 DICTATED BY: MAMADOU AUSTIN DATE: 12/10/16 REPORT STATUS : Draft TRANSCRIBED BY: MODL DATE: 12/10/16 CARDIOVASCULAR CONSULTATION DATE OF CONSULTATION: 12/10/[address] Lani Carpenter. INDICATION: Seizure, congestive heart failure, ICD site drainage. HISTORY OF PRESENT ILLNESS: Mr. Pringle is a 56-year-old man with a complicated past medical history. This is most significant for extensive ongoing alcohol use and noncompliance with both diet, fluid restriction, and perhaps even medications. He has a longstanding nonischemic cardiomyopathy with EF around 25%. He has a history of nonsustained ventricular tachycardia, hypertension, frequent admissions for volume overload and most recently was admitted with a possible stroke, volume overload, drainage from his recent ICD site, and possible seizure, which prompted a transfer to the ICU. The patient currently is awake with no complaints of chest pain or dyspnea. He has not had any syncope or presyncope aside from the rapid response event of overnight. PAST MEDICAL HISTORY: 1. Nonischemic cardiomyopathy. 2. Chronic atrial fibrillation. 3. History of gastric ulcer, status post Yony-en-Y procedure. 4. History of recent GI bleeding. 5. Hypertension. 6. Peripheral vascular disease. 7. Chronic renal insufficiency. 8. History of stroke. 9. History of venous varicosities, status post stripping. SOCIAL HISTORY: He does not smoke. There is a history of ongoing alcohol use. FAMILY HISTORY: There is no family history of early coronary artery disease. REVIEW OF SYSTEMS: A complete review of systems was obtained which is negative in detail except as mentioned above in the HPI. ALLERGIES: INCLUDE SHAUNA INHIBITORS CAUSING A COUGH. MEDICATIONS: At home include allopurinol, amiodarone 200 mg twice a day, aspirin 81 mg daily, Bumex 1 mg twice a day, Coreg 3.125 mg twice a day, hydralazine 10 mg three times a day, Imdur 30 mg daily, Synthroid, potassium, and Aldactone 25 mg daily. Consultation Report [facility] [address] [place]. [address] NAME: MAKSIM PRINGLE : 60 STATUS : ADM IN PAT#: [id number] AGE: 56 ADM/REG DATE : 12/09/16 MR#: [id number] REPORT SERV DATE: 12/10/16 DICTATED BY: MAMADOU AUSTIN DATE: 12/10/16 REPORT STATUS : Draft TRANSCRIBED BY: MODL DATE: 12/10/16 REVIEW OF SYSTEMS: A complete review of systems was obtained which is negative in detail except as mentioned above in the HPI. PHYSICAL EXAMINATION: VITAL SIGNS: Blood pressure 100/60, heart rate of 80, respiratory rate of 14. GENERAL: Comfortable in no acute distress. HEENT: Anicteric. No xanthelasma. Lips without cyanosis. NECK: No JVD. Carotids 2+ and symmetric. No carotid bruits. LUNGS: CTA bilaterally. No wheezes or rhonchi. No accessory muscle use. COR: RRR. Normally placed PMI. Normal S1 and S2. No murmurs, rubs or gallops. ABD: Soft, nontender, nondistended. Normal bowel sounds. No abdominal bruits. EXT: No clubbing, cyanosis or edema 2+ and symmetric distal pulses. SKIN: Warm. Dry. No venous stasis changes. MS: No kyphosis. NEURO/PSYCH: Oriented x3. No anxiety or depression. LABORATORY STUDIES: Potassium of 3.9, creatinine of 0.86, hematocrit of 32. BNP of 451. EKG: A 12-lead EKG shows atrial fibrillation with mildly rapid rate of 140 beats per minute. Currently, in atrial fibrillation with controlled rate, ventricular pacing present. IMPRESSION: Mr. Pringle is a complicated 56-year-old man with a nonischemic cardiomyopathy and medical noncompliance. He has significant runs of nonsustained ventricular tachycardia, which are below the threshold of his ICD treatment algorithm. There is a question about a seizure. He had not been anticoagulated previously because of Yony-en-Y procedure with recurrent GI bleeds. I recommend diuresis. We will observe his ICD site. He will be re- loaded with amiodarone. We may need to reconsider his anticoagulation strategy. [facility]/ATA Mamadou Austin M.D. / [id number] CC: Rod Ag MD
--- NOTE | ~2016-12-09 | DS ---
Discharge Summary [facility] [address] [place]. [address] NAME: MAKSIM LOZANO : 60 STATUS : DIS IN PAT#: [id number] AGE: 56 ADM/REG DATE : 12/09/16 MR#: [id number] REPORT SERV DATE: 12/19/16 DICTATED BY: FIOR MALAGON DATE: 12/18/16 REPORT STATUS : Draft TRANSCRIBED BY: MODL DATE: 12/18/16 ADMISSION DATE: 12/09/2016 DISCHARGE DATE: 12/18/2016 DIAGNOSES: 1. Seizure activity secondary to alcohol withdrawal versus partial seizure disorder. 2. Delirium tremens, resolved. 3. Nonischemic cardiomyopathy, status post AICD. 4. Chronic atrial fibrillation. 5. Left apical focal consolidation. 6. Suspected adrenal insufficiency per Critical Care. CONSULTANTS: Grinding Operator, Dr. Sams. Neurology, Dr. Karlo Holly. ATTENDINGS: Critical Care with Dr. Marisela Red and Dr. Carpenter and the hospitalist, Dr. Rod Ag, Dr. Mamadou Peter, Dr. Malagon. HOSPITAL COURSE: Please see H and P dictated by Dr. Rod Ag and interim summary from Dr. Marisela Red for further details. This is a 56-year-old male with a past medical history of nonischemic cardiomyopathy with the ejection fraction of 25% to 35% status post on AICD and history of chronic atrial fibrillation, history of CVA, and per chart alcohol abuse presented with complaint of left hand clumsiness after pacemaker placement with some leakage around the pacemaker placement site/AICD site. The patient was initially admitted to the hospitalist service to rule out CVA. There were no signs of active infection around the defibrillator/pacer site. Apparently, he was not on anticoagulation due to history of massive bleed while on Xarelto. Cardiology was consulted. Apparently, the same day of admission, the patient required transfer to ICU and was placed on the ICU Service after the patient experienced seizure-like activity with concerns for alcohol withdrawal. He was seen also by Neurology while in ICU, and the patient had an EEG with some findings of abnormality in the right temporal area as well as parietal area, and the patient was initiated on Zonegran, antiepileptic, by Neurology. The patient also went through DTs during his stay in ICU which resolved. It was hard to determine if the patient's seizure like activities were secondary to his alcohol withdrawal versus partial seizure. Therefore, the patient was continued on Zonegran per Neurology. Also, the patient required pressors while in ICU, it was reported per ICU/Critical Care physician, Dr. Marisela Red, that the patient was diagnosed with adrenal insufficiency and placed on steroid. Please refer to her interim summary for further details. The patient was able to be taken off pressors and also hydrocortisone was continued by Critical Care. He was also continued to be followed up by Dr. Sams, Cardiology, for which the patient had an echocardiogram with ejection fraction found to be at 30% with mildly dilated RV with mild hypocontractility of the right ventricle with severe biatrial enlargement, moderate mitral and tricuspid regurgitation and moderate pulmonary hypertension. Also, while in ICU, the patient was aggressively diuresed by Cardiology. The patient was later transferred to telemetry floor to Hospitalist Service and was cared for at that time by Dr. Mamadou Peter and seen on 12/16/2016. The patient remained hemodynamically stable and his hydrocortisone was changed over to oral. Also, his diuretic was continued by Cardiology, however, the patient was found to develop some acute kidney Discharge Summary [address] [address] NAME: MAKSIM LOZANO : 60 STATUS : DIS IN PAT#: [id number] AGE: 56 ADM/REG DATE : 12/09/16 MR#: [id number] REPORT SERV DATE: 12/19/16 DICTATED BY: FIOR MALAGON DATE: 12/18/16 REPORT STATUS : Draft TRANSCRIBED BY: ATA DATE: 12/18/16 injury. Creatinine increased from 1 to 1.4 to 1.6. His Bumex was decreased from b.i.d. to once a day by Cardiology. Also, the patient was tolerating his Coreg and amiodarone and aspirin while his stay on telemetry. Also, the patient is to be educated on importance of compliance with medical therapy. The patient became very adamant about being discharged to home. It was explained to the patient that renal function was not at his baseline and recommend to remain hospitalized for further treatment of his acute kidney injury, most likely secondary to diuretic with his nonischemic cardiomyopathy. The patient was alert and oriented on the day of discharge and the patient signed out AMA. The patient already has a followup appointment with Dr. Sams, his part time flexible clerk, and also the patient already has been referred to Pulmonary Service with Dr. Iglesias and colleagues to follow up in several weeks for incidental finding of a left apical focal area to rule out any underlying malignancy, for which the patient should follow up with music rehabilitation therapist. Also, the patient did take with him prescription for the Zonegran which was already written by Neurology and did receive instructions about importance of compliance with his medications and explained about his medication changes while here in the hospital, and the patient stated that he will follow up with his primary care as an outpatient and signed out AMA. The patient states he follows up with Dr. Vgea in [facility]. [facility]/ATA Fior Malagon M.D. / [id number] CC: Fior Malagon M.D.
--- NOTE | ~2016-12-09 | HP ---
History And Physical [address] [place]. [address] NAME: MAKSIM LOZANO : 60 STATUS : ADM IN [facility]#: [id number] AGE: 56 ADM/REG DATE : 12/09/16 MR#: [id number] REPORT SERV DATE: 12/10/16 DICTATED BY: ORD LEE DATE: 12/09/16 REPORT STATUS : Draft TRANSCRIBED BY: MODL DATE: 12/09/16 DATE OF ADMISSION: 12/09/2016 CHIEF COMPLAINT: Pacemaker leaking and left hand weakness and ataxia. HISTORY OF PRESENT ILLNESS: This is a 56-year-old gentleman with history of nonischemic cardiomyopathy with ejection fraction of 35%, chronic atrial fibrillation - not on any anticoagulation, history of CVA, alcohol abuse amongst many other medical conditions, presenting with a pacemaker leak and left hand clumsiness. The patient reports that he had a pacemaker put in about a month ago by one of Dr. Sams's partners. Since the pacemaker insertion, the patient has been leaking fluids around the pacemaker insertion site. The patient did not really have any fevers or chills or tenderness around the area, but the patient is yet to have a second look at it by a sports internship. Also, since about couple of days ago, the patient noticed that he was increasingly having a difficult time with his left hand. The patient would keep dropping things and his left hand would be really clumsy and not move the way he intended it to. The patient otherwise did not have any other focal neurologic deficits. The patient denies any vision changes, droopy face, or aphasia or dysarthria. The patient also denies any balance issues and the patient has been walking around just fine because his lower extremity strengths are unaffected. After a couple of days of persistent symptoms, he decided to come to the ER for further evaluation and care. In the ER, the patient was found to be afebrile and hemodynamically stable. Initial lab evaluation was all fairly benign. CT of the head showed a large old right MCA CVA with diffuse white matter disease. Internal Medicine consultation was requested for admission of the patient for further evaluation and care. In reviewing pertinent past medical history based on the head CT findings, I specifically asked the patient if he has had any residual deficits from his old CVA and the patient reports that he has never really had any problems and his left upper extremity weakness is definitely new. Also, the patient has a history of chronic atrial fibrillation, but not on any anticoagulation because he had a massive GI bleed on Xarelto. The patient denies having tried any other anticoagulants or trying smaller doses in the past. REVIEW OF SYSTEMS: The patient denies any fevers or chills. Also, 14-point review of systems reviewed and negative other than mentioned above. MEDICATIONS: 1. Synthroid 50 mcg p.o. q.a.m. 2. Amiodarone 200 mg p.o. b.i.d. 3. Coreg 3.125 mg p.o. b.i.d. 4. Hydralazine 10 mg p.o. t.i.d. 5. Imdur 30 mg p.o. daily. 6. Klor-Con 20 mEq p.o. daily. 7. Aldactone 25 mg p.o. daily. 8. Bumex 1 mg p.o. b.i.d. History And Physical [address] [address] NAME: MAKSIM LOZANO : 60 STATUS : ADM IN PAT#: [id number] AGE: 56 ADM/REG DATE : 12/09/16 MR#: [id number] REPORT SERV DATE: 12/10/16 DICTATED BY: ROD LEE DATE: 12/09/16 REPORT STATUS : Draft TRANSCRIBED BY: ATA DATE: 12/09/16 9. Zyloprim 100 mg p.o. b.i.d. 10.Aspirin 81 mg p.o. q.a.m. ALLERGIES: SHAUNA INHIBITORS. PAST MEDICAL HISTORY: 1. Nonischemic cardiomyopathy with ejection fraction of 35%, the patient follows with Dr. Sams. The patient apparently had a pacemaker and not sure if also defibrillator put in about a month ago and has not had any followup with Cardiology since then. 2. Chronic AFib, not on any anticoagulation. The patient has tried Xarelto in the past and had a massive GI bleed and since then, the patient has not been on any anticoagulation. The patient denies having tried any Pradaxa, Eliquis, or Coumadin at full or half strength doses. The patient is currently just on baby aspirin. 3. History of V-tach. 4. Hypothyroidism. 5. History of CVA with no apparent residual deficits despite being a large CVA. 6. Alcohol abuse. 7. Chronic bilateral lymphedema with chronic leg wounds. PAST SURGICAL HISTORY: 1. Bowel obstruction. 2. Yony-en-Y bypass. 3. Vein stripping. 4. Pacemaker and/or possibly defibrillator implanted about a month ago. FAMILY HISTORY: Heart diseases. SOCIAL HISTORY: The patient does not smoke. The patient has a history of alcohol abuse, but currently he drinks on average about two 24-ounce cans of beer on daily basis. 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 PHYSICAL EXAMINATION: VITAL SIGNS: Temperature 99.0, blood pressure 96/61, pulse 90, respiratory rate is 16, saturating 97% on room air. NEUROLOGIC: The patient is alert and oriented x3. The patient does have left hand weakness and ataxia. Rest of the patient's limbs are of full strength. The patient also has cranial nerves 2 through 12 intact. GENERAL: The patient is awake, does not appear to be in acute distress and he is cooperative. NECK: No JVD. No lymphadenopathy. Normal thyroid. CHEST: No midline sternotomy scar. The patient's pacemaker site is fluctuant, but nonerythematous and nontender and not warm to touch. It is draining a small amount of serosanguineous fluid. LUNGS: Clear to auscultation bilaterally with normal respiratory effort on room air. CARDIOVASCULAR: Regular rate and rhythm with no murmurs, rubs, or gallops. PMI is nondisplaced. History And Physical [address] [address] NAME: MAKSIM LOZANO : 60 STATUS : ADM IN [facility]#: [id number] AGE: 56 ADM/REG DATE : 12/09/16 MR#: [id number] REPORT SERV DATE: 12/10/16 DICTATED BY: ROD LEE DATE: 12/09/16 REPORT STATUS : Draft TRANSCRIBED BY: ATA DATE: 12/09/16 ABDOMEN: Soft and nontender with active bowel sounds and no organomegaly. EXTREMITIES: The patient has 2+ bilateral lower extremity edema and he is seeping clear fluids through bilateral lower extremities. His left side is somewhat worse than the right side, but I do not see any evidence of infection. The patient otherwise has normal distal pulses and no calf tenderness. SKIN: Clean, dry, warm, and intact. LABORATORY DATA: Sodium is 135, potassium 3.9, chloride 100, BUN 8, creatinine 0.86, glucose 94, calcium 8.8. White blood cell count is 3.1, hemoglobin 11.3, platelets 133. BNP is 451.9. Lactate is 1.3. Procalcitonin level is less than 0.05. Urinalysis negative. CT of the head showed a large old right MCA stroke with diffuse white matter disease. ASSESSMENT: This is a 56-year-old gentleman with history of cerebrovascular accident, nonischemic cardiomyopathy, atrial fibrillation amongst many other medical conditions, presenting with a cerebrovascular accident and pacemaker site leaking. 1. Cerebrovascular accident with left hand weakness and ataxia. The patient has had an old right middle cerebral artery cerebrovascular accident that is fairly large in size, but he denies having had any residual deficits. 2. Newly inserted pacemaker and possibly defibrillator site leaking serosanguineous fluid, there is no objective evidence of infection at this point in time. 3. Chronic atrial fibrillation for which the patient is not on any anticoagulation due to having had a massive bleed on Xarelto. The patient is currently on aspirin alone and he has not tried any other modes of anticoagulation. 4. Nonischemic cardiomyopathy with ejection fraction of 35%. 5. Bilateral lower extremity lymphedema with some leg wounds, no evidence of active infection. 6. History of ventricular tachycardia. 7. History of cerebrovascular accident. 8. Alcohol abuse. PLAN: The plan is to admit the patient as an inpatient. The patient will be under telemetry and neurologic monitoring per protocol. I will start the patient on full-strength aspirin and Lipitor. I will go ahead and check MRI of the brain as well as CTA of the neck. I will also check hemoglobin A1c, lipid panel, and serial troponins. The patient will also be evaluated by Physical Therapy as well as Occupational Therapy. I will ask Cardiology and Neurology to evaluate the patient, especially given his high risk for recurrent stroke with his history of AFib and not on any anticoagulation. Also, Cardiology will need to evaluate the pacemaker site leaking. For the bilateral chronic lymphedema with seeping leg wounds, I will ask Wound Care to evaluate the patient. For alcohol abuse, the patient was given counseling regarding cessation and/or moderation of alcohol intake. Otherwise, for the rest of the stable past medical conditions including hypothyroidism, pancytopenia, et al., I will continue home medications. Standard DVT prophylaxis. The patient is full code at this time. [facility] [place] [place] History And Physical [address] [place]. [address] NAME: MAKSIM LOZANO : 60 STATUS : ADM IN [facility]#: [id number] AGE: 56 ADM/REG DATE : 12/09/16 MR#: [id number] REPORT SERV DATE: 12/10/16 DICTATED BY: ROD LEE DATE: 12/09/16 REPORT STATUS : Draft TRANSCRIBED BY: ATA DATE: 12/09/16 Rod Lee MD / [id number] CC: MD Mamadou Grossman M.D.
[~2016-12-09 19:52] MED LIST changes: +APRES10B PO; +CORDARONE PO; +COREG3 PO; +ENULOSE PO; +IMDUR30 PO; +LEVOTHYROXIN50 MCG PO; +LIPITOR10 PO; +LIPITOR20 PO; +VIBRATAB100 MG PO
[2016-12-09] MEDS ORDERED: COREG3 PO (21:26)
[2016-12-09] MEDS ORDERED: SYN.05 PO (21:26)
[2016-12-09] MEDS ORDERED: CORDARONE PO (21:26)
[2016-12-09] MEDS ORDERED: IMDUR30 PO (21:27)
[2016-12-09] MEDS ORDERED: APRES10B PO (21:27)
[2016-12-09] MEDS ORDERED: SPIRO25 PO (21:28)
[2016-12-09] MEDS ORDERED: KLOR-CON M1010 MEQ PO (21:28)
[2016-12-09] MEDS ORDERED: BUM1 PO (21:28)
[2016-12-09] MEDS ORDERED: Z100 PO (21:29)
[2016-12-09] MEDS ORDERED: ASAB PO (21:30)
[2016-12-09 21:42] LABS: BASOPHILS 0.3 %; BASOPHILS ABSOLUTE 0.01 10/3/uL (0.0-0.16); EOSINOPHILS 7.1 %; EOSINOPHILS ABSOLUTE 0.22 10/3/uL (0.0-0.53); ER CBC TAT 0 Hrs 07 Mins; HEMOGLOBIN 11.3 g/dL (13.6-17.8); LYMPHOCYTES 19.6 %; LYMPHOCYTES ABSOLUTE 0.61 10/3/uL (0.67-4.30); MEAN CORPUS HGB CONC 34.3 g/dL (32.0-36.0); MEAN CORPUSCULAR HEMOGLOB 31.9 pg (26.0-34.0); MEAN PLATELET VOLUME 10.2 fL (9.2-13.0); MONOCYTES 18.3 %; MONOCYTES ABSOLUTE 0.57 10/3/uL (0.21-1.20); NEUTROPHILS 54.7 %; RBC DISTRIBUTION WIDTH 16.7 % (12.0-16.0); RED CELL COUNT 3.54 10/6/uL (4.7-6.1); WHITE BLOOD CELLS 3.1 10/3/uL (4.5-10.5)
[2016-12-09 21:44] LABS: HEMATOCRIT 32.9 % (40.0-51.0); MANUAL DIFF NO %; MEAN CORPUSCULAR VOLUME 92.9 fL (80-100); PLATELET COUNT 133 10/3/uL (150-400)
[2016-12-09 21:53] LABS: BUN (BLOOD UREA NITROGEN) 8 MG/DL (6-23); CALCIUM, SERUM 8.8 MG/DL (8.5-10.4); CHLORIDE, SERUM 100 MMOL/L (96-112); CO2 (CARBON DIOXIDE) 27 MMOL/L (24-34); CREATININE 0.86 MG/DL (0.70-1.30); GFR AFRICAN AMERICAN 112 ML/MIN (>=60); GFR NON AFRICAN AMERICAN 97 ML/MIN (>=60); GLUCOSE, SERUM 94 MG/DL (60-99); POTASSIUM, SERUM 3.9 MMOL/L (3.5-5.3); SODIUM, SERUM 135 MMOL/L (135-148)
[2016-12-09 21:59] LABS: LACTATE 1.3 MMOL/L (0.3-2.4)
[2016-12-09 22:27] LABS: PROCALCITONIN <0.05 ng/mL (<0.5)
[2016-12-09 22:28] LABS: ASCORBIC ACID (UR NOT ORDER) NEG (NEG); BILIRUBIN, URINE NEGATIVE (NEG); ER URINALYSIS TAT 0 Hrs 08 Mins; KETONE, URINE NEGATIVE (NEG); LEUKOCYTE ESTERASE(NOT OR NEG (NEG); NITRITE (URINE) NEG (NEG); WBC (NOT ORDERED) (RFLEX) 1 (0-5)
[2016-12-09 23:55] LABS: ALBUMIN 2.6 G/DL (3.5-5.0); DIRECT BILIRUBIN 0.6 MG/DL (0.0-0.4); INDIRECT BILIRUBIN(NOT ORDER) 0.5 MG/DL (0.1-0.9); SGOT(AST) 34 U/L (5-40); SGPT(ALT) 33 U/L (5-65); TOTAL BILIRUBIN 1.1 MG/DL (0-1.2); TOTAL PROTEIN 7.4 G/DL (6.0-8.5)
[2016-12-09 23:56] LABS: ALKALINE PHOSPHATASE 307 U/L (45-117)
[2016-12-10 07:16] LABS: CHOL/HDL RATIO(NOT ORDER) 1.4 (0-5); TROPONIN I 0.06 NG/ML (<0.05)
[2016-12-11 05:26] LABS: BASOPHILS 0.3 %; BASOPHILS ABSOLUTE 0.01 10/3/uL (0.0-0.16); EOSINOPHILS 7.5 %; EOSINOPHILS ABSOLUTE 0.22 10/3/uL (0.0-0.53); IMMATURE GRANULOCYTES 0.3 %; IMMATURE GRANULOCYTES ABSOLUTE 0.01 10/3/uL (0.0-0.11); MEAN CORPUS HGB CONC 34.2 g/dL (32.0-36.0); MEAN CORPUSCULAR HEMOGLOB 32.3 pg (26.0-34.0); MEAN CORPUSCULAR VOLUME 94.2 fL (80-100); MEAN PLATELET VOLUME 10.6 fL (9.2-13.0); MONOCYTES 19.4 %; MONOCYTES ABSOLUTE 0.57 10/3/uL (0.21-1.20); NEUTROPHILS 55.5 %; NEUTROPHILS ABSOLUTE 1.63 10/3/uL (2.02-8.40); PLATELET COUNT 120 10/3/uL (150-400); RBC DISTRIBUTION WIDTH 16.8 % (12.0-16.0); WHITE BLOOD CELLS 2.9 10/3/uL (4.5-10.5)
[2016-12-11 05:27] LABS: HEMATOCRIT 29.2 % (40.0-51.0); MANUAL DIFF NO %
[2016-12-11 06:03] LABS: ALBUMIN 2.3 G/DL (3.5-5.0); BUN (BLOOD UREA NITROGEN) 11 MG/DL (6-23); CALCIUM, SERUM 8.5 MG/DL (8.5-10.4); CHLORIDE, SERUM 100 MMOL/L (96-112); CO2 (CARBON DIOXIDE) 23 MMOL/L (24-34); CREATININE 0.89 MG/DL (0.70-1.30); DIRECT BILIRUBIN 0.7 MG/DL (0.0-0.4); FREE T4 1.54 NG/DL (0.76-1.46); GFR AFRICAN AMERICAN 111 ML/MIN (>=60); GFR NON AFRICAN AMERICAN 96 ML/MIN (>=60); GLUCOSE, SERUM 79 MG/DL (60-99); INDIRECT BILIRUBIN(NOT ORDER) 0.6 MG/DL (0.1-0.9); PHOSPHORUS, SERUM 3.3 MG/DL (2.5-4.5); POTASSIUM, SERUM 3.7 MMOL/L (3.5-5.3); SGOT(AST) 25 U/L (5-40); SGPT(ALT) 25 U/L (5-65); SODIUM, SERUM 132 MMOL/L (135-148); TOTAL BILIRUBIN 1.3 MG/DL (0-1.2); TOTAL PROTEIN 6.6 G/DL (6.0-8.5)
[2016-12-11 06:04] LABS: ALKALINE PHOSPHATASE 258 U/L (45-117); FOLATE 12.4 NG/ML (>5.2)
[2016-12-12 14:20] LABS: BASOPHILS 0.4 %; BASOPHILS ABSOLUTE 0.01 10/3/uL (0.0-0.16); EOSINOPHILS 9.2 %; EOSINOPHILS ABSOLUTE 0.25 10/3/uL (0.0-0.53); HEMATOCRIT 31.7 % (40.0-51.0); LYMPHOCYTES 13.9 %; LYMPHOCYTES ABSOLUTE 0.38 10/3/uL (0.67-4.30); MEAN CORPUS HGB CONC 34.7 g/dL (32.0-36.0); MEAN CORPUSCULAR HEMOGLOB 32.3 pg (26.0-34.0); MEAN PLATELET VOLUME 10.1 fL (9.2-13.0); MONOCYTES ABSOLUTE 0.52 10/3/uL (0.21-1.20); NEUTROPHILS 57.5 %; NEUTROPHILS ABSOLUTE 1.57 10/3/uL (2.02-8.40); PLATELET COUNT 145 10/3/uL (150-400); RBC DISTRIBUTION WIDTH 16.6 % (12.0-16.0); RED CELL COUNT 3.41 10/6/uL (4.7-6.1); WHITE BLOOD CELLS 2.7 10/3/uL (4.5-10.5)
[2016-12-12 14:24] LABS: MANUAL DIFF NO %
[2016-12-12 14:35] LABS: A/G RATIO 0.5 (0.7-1.9); ALBUMIN 2.3 G/DL (3.5-5.0); ALKALINE PHOSPHATASE 255 U/L (45-117); BUN (BLOOD UREA NITROGEN) 7 MG/DL (6-23); CALCIUM, SERUM 8.4 MG/DL (8.5-10.4); CHLORIDE, SERUM 102 MMOL/L (96-112); CO2 (CARBON DIOXIDE) 26 MMOL/L (24-34); CREATININE 0.67 MG/DL (0.70-1.30); GFR AFRICAN AMERICAN 124 ML/MIN (>=60); GFR NON AFRICAN AMERICAN 107 ML/MIN (>=60); GLOBULIN 4.2 G/DL (2.5-4.1); GLUCOSE, SERUM 100 MG/DL (60-99); PHOSPHORUS, SERUM 3.3 MG/DL (2.5-4.5); POTASSIUM, SERUM 3.5 MMOL/L (3.5-5.3); SGOT(AST) 18 U/L (5-40); SGPT(ALT) 20 U/L (5-65); SODIUM, SERUM 135 MMOL/L (135-148); TOTAL BILIRUBIN 1.1 MG/DL (0-1.2); TOTAL PROTEIN 6.5 G/DL (6.0-8.5)
[2016-12-13 04:58] LABS: BASOPHILS 0 %; EOSINOPHILS 0 %; HEMATOCRIT 31.5 % (40.0-51.0); HEMOGLOBIN 11.1 g/dL (13.6-17.8); IMMATURE GRANULOCYTES 0.2 %; IMMATURE GRANULOCYTES ABSOLUTE 0.01 10/3/uL (0.0-0.11); LYMPHOCYTES 6.4 %; LYMPHOCYTES ABSOLUTE 0.27 10/3/uL (0.67-4.30); MEAN CORPUS HGB CONC 35.2 g/dL (32.0-36.0); MEAN CORPUSCULAR HEMOGLOB 32.7 pg (26.0-34.0); MEAN CORPUSCULAR VOLUME 92.9 fL (80-100); MONOCYTES ABSOLUTE 0.17 10/3/uL (0.21-1.20); NEUTROPHILS 89.4 %; NEUTROPHILS ABSOLUTE 3.77 10/3/uL (2.02-8.40); PLATELET COUNT 161 10/3/uL (150-400); RBC DISTRIBUTION WIDTH 16.5 % (12.0-16.0); RED CELL COUNT 3.39 10/6/uL (4.7-6.1)
[2016-12-13 05:04] LABS: MANUAL DIFF NO %; WHITE BLOOD CELLS 4.2 10/3/uL (4.5-10.5)
[2016-12-13 05:12] LABS: ALBUMIN 2.2 G/DL (3.5-5.0); BUN (BLOOD UREA NITROGEN) 9 MG/DL (6-23); CALCIUM, SERUM 8.8 MG/DL (8.5-10.4); CHLORIDE, SERUM 101 MMOL/L (96-112); CO2 (CARBON DIOXIDE) 25 MMOL/L (24-34); CREATININE 0.94 MG/DL (0.70-1.30); GFR AFRICAN AMERICAN 105 ML/MIN (>=60); GFR NON AFRICAN AMERICAN 90 ML/MIN (>=60); PHOSPHORUS, SERUM 2.7 MG/DL (2.5-4.5); POTASSIUM, SERUM 3.8 MMOL/L (3.5-5.3); SGOT(AST) 26 U/L (5-40); SGPT(ALT) 22 U/L (5-65); SODIUM, SERUM 134 MMOL/L (135-148); TOTAL BILIRUBIN 0.8 MG/DL (0-1.2); TOTAL PROTEIN 6.5 G/DL (6.0-8.5)
[2016-12-13 05:18] LABS: ALKALINE PHOSPHATASE 278 U/L (45-117); DIRECT BILIRUBIN 0.5 MG/DL (0.0-0.4); GLUCOSE, SERUM 139 MG/DL (60-99); INDIRECT BILIRUBIN(NOT ORDER) 0.3 MG/DL (0.1-0.9)
[2016-12-14 04:30] LABS: BASOPHILS 0 %; EOSINOPHILS 0 %; HEMATOCRIT 31.6 % (40.0-51.0); HEMOGLOBIN 10.9 g/dL (13.6-17.8); IMMATURE GRANULOCYTES 0.2 %; IMMATURE GRANULOCYTES ABSOLUTE 0.01 10/3/uL (0.0-0.11); LYMPHOCYTES 5.4 %; LYMPHOCYTES ABSOLUTE 0.35 10/3/uL (0.67-4.30); MEAN CORPUS HGB CONC 34.5 g/dL (32.0-36.0); MEAN CORPUSCULAR HEMOGLOB 32.1 pg (26.0-34.0); MEAN CORPUSCULAR VOLUME 92.9 fL (80-100); MEAN PLATELET VOLUME 10.2 fL (9.2-13.0); MONOCYTES 6.9 %; MONOCYTES ABSOLUTE 0.45 10/3/uL (0.21-1.20); NEUTROPHILS 87.5 %; NEUTROPHILS ABSOLUTE 5.72 10/3/uL (2.02-8.40); PLATELET COUNT 164 10/3/uL (150-400); RBC DISTRIBUTION WIDTH 16.3 % (12.0-16.0)
[2016-12-14 04:33] LABS: MANUAL DIFF NO %; WHITE BLOOD CELLS 6.5 10/3/uL (4.5-10.5)
[2016-12-14 04:44] LABS: CALCIUM, SERUM 9.1 MG/DL (8.5-10.4); CHLORIDE, SERUM 102 MMOL/L (96-112); CO2 (CARBON DIOXIDE) 27 MMOL/L (24-34); CREATININE 1.22 MG/DL (0.70-1.30); GFR AFRICAN AMERICAN 76 ML/MIN (>=60); GFR NON AFRICAN AMERICAN 66 ML/MIN (>=60); GLUCOSE, SERUM 114 MG/DL (60-99); PHOSPHORUS, SERUM 2.9 MG/DL (2.5-4.5); SODIUM, SERUM 134 MMOL/L (135-148)
[2016-12-14 04:45] LABS: BUN (BLOOD UREA NITROGEN) 18 MG/DL (6-23)
[2016-12-15 04:32] LABS: BASOPHILS 0 %; EOSINOPHILS 0 %; HEMATOCRIT 31.5 % (40.0-51.0); HEMOGLOBIN 10.7 g/dL (13.6-17.8); IMMATURE GRANULOCYTES 0.2 %; IMMATURE GRANULOCYTES ABSOLUTE 0.01 10/3/uL (0.0-0.11); LYMPHOCYTES ABSOLUTE 0.39 10/3/uL (0.67-4.30); MEAN CORPUSCULAR HEMOGLOB 31.5 pg (26.0-34.0); MEAN CORPUSCULAR VOLUME 92.6 fL (80-100); MEAN PLATELET VOLUME 10.5 fL (9.2-13.0); MONOCYTES 8.6 %; MONOCYTES ABSOLUTE 0.56 10/3/uL (0.21-1.20); NEUTROPHILS 85.2 %; NEUTROPHILS ABSOLUTE 5.55 10/3/uL (2.02-8.40); PLATELET COUNT 197 10/3/uL (150-400); RBC DISTRIBUTION WIDTH 16.4 % (12.0-16.0); WHITE BLOOD CELLS 6.5 10/3/uL (4.5-10.5)
[2016-12-15 04:34] LABS: MANUAL DIFF NO %
[2016-12-15 04:42] LABS: CHLORIDE, SERUM 106 MMOL/L (96-112); CO2 (CARBON DIOXIDE) 24 MMOL/L (24-34); CREATININE 1.07 MG/DL (0.70-1.30); GFR AFRICAN AMERICAN 89 ML/MIN (>=60); GFR NON AFRICAN AMERICAN 77 ML/MIN (>=60); GLUCOSE, SERUM 109 MG/DL (60-99); PHOSPHORUS, SERUM 2.8 MG/DL (2.5-4.5); SODIUM, SERUM 137 MMOL/L (135-148)
[2016-12-15 04:46] LABS: ALBUMIN 2.8 G/DL (3.5-5.0); BUN (BLOOD UREA NITROGEN) 27 MG/DL (6-23)
[2016-12-16 06:07] LABS: BASOPHILS 0 %; EOSINOPHILS 0 %; HEMATOCRIT 29.5 % (40.0-51.0); IMMATURE GRANULOCYTES 0.2 %; IMMATURE GRANULOCYTES ABSOLUTE 0.01 10/3/uL (0.0-0.11); LYMPHOCYTES 5.9 %; LYMPHOCYTES ABSOLUTE 0.31 10/3/uL (0.67-4.30); MEAN CORPUS HGB CONC 33.9 g/dL (32.0-36.0); MEAN CORPUSCULAR HEMOGLOB 31.6 pg (26.0-34.0); MEAN CORPUSCULAR VOLUME 93.4 fL (80-100); MEAN PLATELET VOLUME 10.2 fL (9.2-13.0); MONOCYTES 16.8 %; MONOCYTES ABSOLUTE 0.89 10/3/uL (0.21-1.20); NEUTROPHILS 77.1 %; NEUTROPHILS ABSOLUTE 4.08 10/3/uL (2.02-8.40); PLATELET COUNT 184 10/3/uL (150-400); RBC DISTRIBUTION WIDTH 16.5 % (12.0-16.0); RED CELL COUNT 3.16 10/6/uL (4.7-6.1); WHITE BLOOD CELLS 5.3 10/3/uL (4.5-10.5)
[2016-12-16 06:08] LABS: MANUAL DIFF NO %
[2016-12-16 06:15] LABS: ALBUMIN 2.5 G/DL (3.5-5.0); CALCIUM, SERUM 8.5 MG/DL (8.5-10.4); CHLORIDE, SERUM 107 MMOL/L (96-112); CO2 (CARBON DIOXIDE) 23 MMOL/L (24-34); CREATININE 1.44 MG/DL (0.70-1.30); GFR AFRICAN AMERICAN 62 ML/MIN (>=60); GFR NON AFRICAN AMERICAN 54 ML/MIN (>=60); PHOSPHORUS, SERUM 2.5 MG/DL (2.5-4.5); POTASSIUM, SERUM 3.7 MMOL/L (3.5-5.3); SODIUM, SERUM 139 MMOL/L (135-148)
[2016-12-16 06:17] LABS: BUN (BLOOD UREA NITROGEN) 34 MG/DL (6-23); GLUCOSE, SERUM 134 MG/DL (60-99)
[2016-12-17 06:35] LABS: BASOPHILS 0 %; EOSINOPHILS 0 %; HEMATOCRIT 30.4 % (40.0-51.0); HEMOGLOBIN 10.4 g/dL (13.6-17.8); IMMATURE GRANULOCYTES 0.4 %; IMMATURE GRANULOCYTES ABSOLUTE 0.02 10/3/uL (0.0-0.11); LYMPHOCYTES 11.2 %; LYMPHOCYTES ABSOLUTE 0.55 10/3/uL (0.67-4.30); MANUAL DIFF NO %; MEAN CORPUS HGB CONC 34.2 g/dL (32.0-36.0); MEAN CORPUSCULAR HEMOGLOB 32.5 pg (26.0-34.0); MEAN PLATELET VOLUME 10.2 fL (9.2-13.0); MONOCYTES 14.6 %; MONOCYTES ABSOLUTE 0.72 10/3/uL (0.21-1.20); NEUTROPHILS 73.8 %; NEUTROPHILS ABSOLUTE 3.64 10/3/uL (2.02-8.40); PLATELET COUNT 199 10/3/uL (150-400); RBC DISTRIBUTION WIDTH 16.2 % (12.0-16.0); WHITE BLOOD CELLS 4.9 10/3/uL (4.5-10.5)
[2016-12-17 06:48] LABS: BUN (BLOOD UREA NITROGEN) 39 MG/DL (6-23); CALCIUM, SERUM 8.7 MG/DL (8.5-10.4); CHLORIDE, SERUM 106 MMOL/L (96-112); CO2 (CARBON DIOXIDE) 25 MMOL/L (24-34); CREATININE 1.63 MG/DL (0.70-1.30); GFR AFRICAN AMERICAN 54 ML/MIN (>=60); GFR NON AFRICAN AMERICAN 46 ML/MIN (>=60); GLUCOSE, SERUM 112 MG/DL (60-99); POTASSIUM, SERUM 3.8 MMOL/L (3.5-5.3); SODIUM, SERUM 138 MMOL/L (135-148)
[2016-12-18 12:35] LABS: BUN (BLOOD UREA NITROGEN) 40 MG/DL (6-23); CALCIUM, SERUM 9.2 MG/DL (8.5-10.4); CHLORIDE, SERUM 107 MMOL/L (96-112); CO2 (CARBON DIOXIDE) 27 MMOL/L (24-34); CREATININE 1.64 MG/DL (0.70-1.30); GFR AFRICAN AMERICAN 53 ML/MIN (>=60); GFR NON AFRICAN AMERICAN 46 ML/MIN (>=60); GLUCOSE, SERUM 95 MG/DL (60-99); POTASSIUM, SERUM 3.9 MMOL/L (3.5-5.3); SODIUM, SERUM 141 MMOL/L (135-148)
[2016-12-18] MEDS ORDERED: CORTEF5 PO (13:40)
[2016-12-18] MEDS ORDERED: ZONEGRAN PO (13:41)
== END 2016-12-18 16:11 | disposition left against medical advice (07) | DRG 314 ==
LOC: ENRESERVTM → ENRESERV → ENRESERVDT → CANRESERV → ER 19:52 → MIC 23:15 → 1SO 23:15 → MIC 12-10 04:27 → 1SO 12-15 15:22
PROVIDERS: Emergency Medicine; Internal Medicine; Internal Medicine Cardiovascular Disease; Internal Medicine Critical Care Medicine; Internal Medicine Pulmonary Disease; Psychiatry & Neurology Neurology
PROC: 05HM33Z Insertion of Infusion Device into Right Internal Jugular Vein, Percutaneous Approach (ICD-10-PCS; principal; 2016-12-09)
PROC: B543ZZA Ultrasonography of Right Jugular Veins, Guidance (ICD-10-PCS; 2016-12-09)
DX: T82.897A Other specified complication of cardiac prosthetic devices, implants and grafts, initial encounter (principal); E43 Unspecified severe protein-calorie malnutrition; F10.231 Alcohol dependence with withdrawal delirium; N17.9 Acute kidney failure, unspecified; I42.8 Other cardiomyopathies; E27.40 Unspecified adrenocortical insufficiency; I47.1 Supraventricular tachycardia; I11.0 Hypertensive heart disease with heart failure; I50.20 Unspecified systolic (congestive) heart failure; I48.2 Chronic atrial fibrillation; G40.509 Epileptic seizures related to external causes, not intractable, without status epilepticus; Z91.19 Patient's noncompliance with other medical treatment and regimen; Z79.01 Long term (current) use of anticoagulants; Z86.73 Personal history of transient ischemic attack (TIA), and cerebral infarction without residual deficits; R53.1 Weakness; R27.0 Ataxia, unspecified; E03.9 Hypothyroidism, unspecified; I89.0 Lymphedema, not elsewhere classified; L08.9 Local infection of the skin and subcutaneous tissue, unspecified; Z88.8 Allergy status to other drugs, medicaments and biological substances; R62.7 Adult failure to thrive; Z68.25 Body mass index [BMI] 25.0-25.9, adult; Z51.5 Encounter for palliative care
CPT/HCPCS: 36600; 70450; 70496; 70498; 71010; 80048; 80053; 80061; 80069; 80076; 81001; 82140; 82330; 82533; 82607; 82746; 82803; 82947; 83036; 83605; 83735; 83880; 84100; 84132; 84145; 84295; 84439; 84443; 84484; 85014; 85025; 87040; 87641; 93005; 93288; 95816; 97110-GO; 97110-GP; 97116-GP; 97163-GP; 97167-GO; 99285; A9270-GY; C8929; G8978-CN-GP; G8979-CL-GP; J0282; J1720; J1953; J3411; J3475; P9045; P9047; Q9957; Q9967